=== PATIENT | female | born 1955 | race Caucasian/White ===

== ENCOUNTER 2018-05-06 18:28 | Outpatient (REF) | payer BC, SELFPAY ==
[2018-05-06 23:02] LABS: CREATININE 0.92 mg/dL (0.55-1.02); Calcium 9.3 mg/dL (8.5-10.1); Vitamin B12 517 pg/mL (193-986)
[2018-05-08 10:36] LABS: Hepatitis C Ab w Rflx HCV PCR Negative (NEGAT)
== END 2018-05-06 18:48 ==
LOC: NCHCN 18:28
PROVIDERS: PCP Internal Medicine; Visit Provider Nurse Practitioner Family
DX: R25.2 Cramp and spasm (principal); M81.0 Age-related osteoporosis without current pathological fracture; E21.0 Primary hyperparathyroidism; K30 Functional dyspepsia; R13.10 Dysphagia, unspecified; F51.04 Psychophysiologic insomnia; J45.30 Mild persistent asthma, uncomplicated; E66.9 Obesity, unspecified; Z11.59 Encounter for screening for other viral diseases
CPT/HCPCS: 86803; 82310; 82565; 82607; 83735

== ENCOUNTER 2018-05-09 01:14 | Outpatient (CLI) | payer BC, SELFPAY ==
--- NOTE | 2018-05-09 15:21 | DI.COMBO_ITS ---
SYMPTOM/DIAGNOSIS: SCREENING, Z12.31 BILATERAL SCREENING MAMMOGRAM: Mammograms were interpreted according to the usual protocol including computer analysis with CAD system, tomosynthesis and C view imaging. Comparison is made with exams from 2011 through 2017. The breasts are almost entirely fatty. The patient is again noted to be status post biopsy of the upper outer quadrant of the right breast. There is mild scarring and coarse calcifications which appear unchanged. No suspicious masses or suspicious microcalcifications are seen. IMPRESSION: Category 2-A. Negative mammogram with benign findings. Yearly screening mammography is recommended. SA ASSESSMENT OF FINDINGS: Negative with benign findings. Category 2. Patient will receive a letter notifying them of these results. BI-RAD category A. The breasts are almost entirely fatty.
== END 2018-05-09 01:34 ==
PROVIDERS: PCP Internal Medicine; Visit Provider Nurse Practitioner Family
DX: Z12.31 Encounter for screening mammogram for malignant neoplasm of breast (principal)
CPT/HCPCS: 77063; 77067

== ENCOUNTER 2018-09-20 08:20 | Outpatient (CLI) | payer BC, SELFPAY ==
--- NOTE | 2018-09-20 08:14 | DI.RAD_ITS ---
SYMPTOMS/DIAGNOSIS: RT SHOULDER INJURY RIGHT SHOULDER: Three views were performed. There is mild spurring at the AC joint and glenoid. The glenohumeral joint space is well maintained. A small calcification is seen adjacent to the humeral head on the AP view which could indicate calcific tendinitis. The humeral head appears normally positioned. IMPRESSION: Mild degenerative changes and calcific tendinitis.
== END 2018-09-20 08:40 ==
PROVIDERS: PCP Internal Medicine; Visit Provider Physician Assistant
DX: M25.511 Pain in right shoulder (principal); M19.011 Primary osteoarthritis, right shoulder; M75.31 Calcific tendinitis of right shoulder
CPT/HCPCS: 73030

== ENCOUNTER 2018-11-19 14:02 | Outpatient (REF) | payer BC, SELFPAY ==
[2018-11-19 21:13] LABS: ALT 35 U/L (12-78); AST 20 U/L (15-37); Albumin 3.4 g/dL (3.4-5.0); Alkaline Phosphatase 88 U/L (46-116); Anion Gap 10.6 mmol/L (3-11); BUN 12 mg/dL (7-18); Bilirubin, Total 0.5 mg/dL (0.2-1.0); CO2 27.4 mmol/L (21.0-32.0); CREATININE 0.73 mg/dL (0.55-1.02); Calcium 9.3 mg/dL (8.5-10.1); Chloride 106 mmol/L (98-107); Glucose 109 mg/dL (70-100); Sodium 144 mmol/L (136-145); Total Protein 6.6 g/dL (6.4-8.2)
[2018-11-19 21:16] LABS: Abs Immature Grans 0.02 k/cumm (0.0-0.09); Absolute Basophil Count 0.07 k/cumm (0.0-0.2); Absolute Eosinophil Count 0.61 k/cumm (0.0-0.7); Absolute Lymphocyte Count 1.77 k/cumm (1.2-3.4); Absolute Monocyte Count 0.52 k/cumm (0.11-0.7); Absolute Neutrophil Count 4.84 k/cumm (1.2-6.7); Basophils % 0.9; Eosinophils % 7.8; HCT 45.4 % (36.0-46.0); HGB 15.1 g/dL (12.0-15.5); Immature Grans % 0.3; Lymphocytes % 22.6; Mean Corp. HGB Concentration 33.3 g/dL (32.0-36.0); Mean Corpuscular Hemoglobin 30.8 pg (27.0-33.0); Mean Corpuscular Volume 92.7 fL (80-95); Mean Platelet Volume 10.4 fL (8.0-11.0); Monocytes % 6.6; Neutrophils % 61.8; Platelet Count 361 x1000/uL (130-400); RBC Distribution Width 13.3 % (11.7-14.6); White Blood Cell Count 7.83 k/cumm (4.4-10.8)
== END 2018-11-19 14:22 ==
LOC: NCHCN 14:02
PROVIDERS: PCP Internal Medicine; Visit Provider Nurse Practitioner Family
DX: R10.11 Right upper quadrant pain (principal); E21.0 Primary hyperparathyroidism; K30 Functional dyspepsia; J45.30 Mild persistent asthma, uncomplicated; L71.9 Rosacea, unspecified
CPT/HCPCS: 80053; 85025

== ENCOUNTER 2018-11-25 00:59 | Outpatient (CLI) | payer BC, SELFPAY ==
--- NOTE | 2018-11-25 07:00 | DI.US_ITS ---
SYMPTOM/DIAGNOSIS: RUQ ABD PAIN, R10.11 ABDOMEN ULTRASOUND: The liver shows increased echogenicity and decrease through transmission consistent with fatty infiltration. The posterior portions of the liver are not able to be visualized. Stones are noted in the gallbladder. The gallbladder wall appears thickened to 7 mm. There is a trace amount of pericholecystic fluid. There is tenderness while scanning over the gallbladder. The common bile duct is not dilated, measuring 5 mm. There is no evidence of hydronephrosis. The aorta is normal in diameter. The spleen is normal in size. No gross abnormality is seen involving the pancreas. IMPRESSION: Cholelithiasis. There is gallbladder wall thickening and tenderness which could indicate acute cholecystitis. Fatty liver is also seen.
== END 2018-11-25 01:19 ==
PROVIDERS: PCP Internal Medicine; Visit Provider Nurse Practitioner Family
DX: R10.11 Right upper quadrant pain (principal); K80.20 Calculus of gallbladder without cholecystitis without obstruction; K76.0 Fatty (change of) liver, not elsewhere classified
CPT/HCPCS: 76700

== ENCOUNTER 2019-04-04 09:05 | Outpatient (REF) | payer BC, SELFPAY ==
[2019-04-04 13:18] LABS: Abs Immature Grans 0.03 k/cumm (0.0-0.09); Absolute Basophil Count 0.06 k/cumm (0.0-0.2); Absolute Eosinophil Count 0.38 k/cumm (0.0-0.7); Absolute Lymphocyte Count 1.64 k/cumm (1.2-3.4); Absolute Monocyte Count 0.88 k/cumm (0.11-0.7); Absolute Neutrophil Count 7.76 k/cumm (1.2-6.7); Basophils % 0.6; Eosinophils % 3.5; HCT 43.2 % (36.0-46.0); HGB 13.8 g/dL (12.0-15.5); Immature Grans % 0.3; Lymphocytes % 15.3; Mean Corp. HGB Concentration 31.9 g/dL (32.0-36.0); Mean Corpuscular Hemoglobin 28.3 pg (27.0-33.0); Mean Corpuscular Volume 88.7 fL (80-95); Mean Platelet Volume 9.4 fL (8.0-11.0); Monocytes % 8.2; Neutrophils % 72.1; Platelet Count 572 x1000/uL (130-400); RBC 4.87 m/cumm (4.00-5.20); RBC Distribution Width 13.9 % (11.7-14.6); White Blood Cell Count 10.75 k/cumm (4.4-10.8)
[2019-04-04 14:27] LABS: ALT 39 U/L (14-59); AST 25 U/L (15-37); Albumin 3.5 g/dL (3.4-5.0); Alkaline Phosphatase 162 U/L (46-116); Anion Gap 12.2 mmol/L (3-11); BUN 10 mg/dL (7-18); Bilirubin, Total 0.6 mg/dL (0.2-1.0); CO2 24.8 mmol/L (21.0-32.0); CREATININE 0.83 mg/dL (0.55-1.02); Calcium 9.4 mg/dL (8.5-10.1); Chloride 103 mmol/L (98-107); Glucose 103 mg/dL (70-100); Potassium 4.2 mmol/L (3.5-5.1); Sodium 140 mmol/L (136-145); Total Protein 7.3 g/dL (6.4-8.2)
== END 2019-04-04 09:25 ==
LOC: NCHCN 09:05
PROVIDERS: PCP Internal Medicine; Visit Provider Nurse Practitioner Family
DX: R21 Rash and other nonspecific skin eruption (principal); R82.90 Unspecified abnormal findings in urine
CPT/HCPCS: 80053; 85025; 87086

== ENCOUNTER 2019-06-25 15:41 | Outpatient (REF) | payer BC, SELFPAY ==
[2019-06-25 22:01] LABS: Abs Immature Grans 0.04 k/cumm (0.0-0.09); Absolute Basophil Count 0.06 k/cumm (0.0-0.2); Absolute Eosinophil Count 0.35 k/cumm (0.0-0.7); Absolute Lymphocyte Count 2.21 k/cumm (1.2-3.4); Absolute Monocyte Count 0.87 k/cumm (0.11-0.7); Absolute Neutrophil Count 6.76 k/cumm (1.2-6.7); Basophils % 0.6; Eosinophils % 3.4; HCT 40.7 % (36.0-46.0); HGB 13.1 g/dL (12.0-15.5); Immature Grans % 0.4 %; Lymphocytes % 21.5; Mean Corp. HGB Concentration 32.2 g/dL (32.0-36.0); Mean Corpuscular Hemoglobin 28.2 pg (27.0-33.0); Mean Corpuscular Volume 87.7 fL (80-95); Mean Platelet Volume 9.9 fL (8.0-11.0); Monocytes % 8.5; Neutrophils % 65.6; RBC 4.64 m/cumm (4.00-5.20); RBC Distribution Width 16.5 % (11.7-14.6); White Blood Cell Count 10.29 k/cumm (4.4-10.8)
[2019-06-25 22:07] LABS: Platelet Count 662 x1000/uL (130-400)
[2019-06-25 22:12] LABS: ALT 136 U/L (14-59); AST 70 U/L (15-37); Albumin 3.2 g/dL (3.4-5.0); Alkaline Phosphatase 579 U/L (46-116); BUN 14 mg/dL (7-18); Bilirubin, Direct 2.81 mg/dL (0.00-0.20); Bilirubin, Total 3.5 mg/dL (0.2-1.0); CREATININE 0.86 mg/dL (0.55-1.02); Calcium 9.2 mg/dL (8.5-10.1); Chloride 102 mmol/L (98-107); Glucose 97 mg/dL (74-106); Lipase 291 U/L (73-393); Potassium 4.6 mmol/L (3.5-5.1); Sodium 139 mmol/L (136-145); Total Protein 7.2 g/dL (6.4-8.2)
== END 2019-06-25 16:01 ==
LOC: NCHCN 15:41
PROVIDERS: PCP Internal Medicine; Visit Provider Family Medicine
DX: R10.11 Right upper quadrant pain (principal)
CPT/HCPCS: 80048; 80076; 83690; 85025

== ENCOUNTER 2019-06-27 11:45 | Outpatient (REF) | payer BC, SELFPAY ==
[2019-06-27 20:59] LABS: HCT 42.3 % (36.0-46.0); HGB 13.5 g/dL (12.0-15.5); Mean Corp. HGB Concentration 31.9 g/dL (32.0-36.0); Mean Corpuscular Hemoglobin 28.5 pg (27.0-33.0); Mean Corpuscular Volume 89.2 fL (80-95); Mean Platelet Volume 9.7 fL (8.0-11.0); Platelet Count 672 x1000/uL (130-400); RBC 4.74 m/cumm (4.00-5.20); RBC Distribution Width 16.6 % (11.7-14.6); White Blood Cell Count 11.35 k/cumm (4.4-10.8)
[2019-06-27 21:27] LABS: Calculated LDL 174 mg/dL (<100); Cholesterol 228 mg/dL (<200); HDL Cholesterol 23 mg/dL (40-60); Triglyceride 155 mg/dL (<150)
[2019-06-30 09:08] LABS: HBs Antibody, Quant <3.1 mIU/mL (See Note); Hepatitis B Surface Ab Negative (See Note)
[2019-06-30 10:41] LABS: Hepatitis C Ab w Rflx HCV PCR Negative (Negative)
[2019-06-30 10:51] LABS: Hep A Total Ab w Rflx IgM Positive (Negative)
[2019-06-30 15:54] LABS: Hep A Antibody IgM Negative (Negative)
[2019-06-30 16:47] LABS: ALT 106 U/L (14-59); AST 68 U/L (15-37); Alkaline Phosphatase 540 U/L (46-116); Total Protein 7.5 g/dL (6.4-8.2)
== END 2019-06-27 12:05 ==
LOC: NCHCN 11:45
PROVIDERS: PCP Internal Medicine; Visit Provider Internal Medicine
DX: R10.11 Right upper quadrant pain (principal); Z11.59 Encounter for screening for other viral diseases
CPT/HCPCS: 80061; 80076; 85027; 86706; 86709; 86803

== ENCOUNTER 2019-07-10 02:20 | Outpatient (CLI) | payer BC, SELFPAY ==
--- NOTE | 2019-07-10 08:00 | DI.US_ITS ---
EXAM: US ABDOMEN CLINICAL HISTORY: ELEVATED LFTS, R79.89 TECHNIQUE: Ultrasound abdomen performed using standard protocol. COMPARISON: US ABDOMEN from 11/25/2018 FINDINGS: LIVER: Increased echogenicity consistent with fatty infiltration. Normal in size. Hepatopetal flow through the portal vein. GALLBLADDER: Status post cholecystectomy. KIDNEYS: Kidneys are symmetric in size. No evidence of renal calculi. No evidence of hydronephrosis. No renal mass or cyst identified. BILIARY SYSTEM: Common bile duct measures 6 mm. There does appear to be mild intrahepatic biliary du ctal dilation. There also are a few echogenic foci seen within extrahepatic bile duct suspicious for choledocholithiasis. PANCREAS: Normal where visualized. SPLEEN: Not enlarged. ABDOMINAL AORTA AND IVC: Visualized portions normal caliber. ASCITES: None seen. IMPRESSION: 1. Status post cholecystectomy. Intrahepatic biliary ductal dilatation. Question of choledocholithi asis. CT scan or MRCP of the abdomen is recommended for further evaluation. 2. Hepatic steatosis.
== END 2019-07-10 02:40 ==
PROVIDERS: PCP Internal Medicine; Visit Provider Family Medicine
DX: K76.0 Fatty (change of) liver, not elsewhere classified (principal); K83.8 Other specified diseases of biliary tract; Z90.49 Acquired absence of other specified parts of digestive tract; R79.89 Other specified abnormal findings of blood chemistry
CPT/HCPCS: 76700

== ENCOUNTER 2019-07-10 10:13 | Outpatient (REF) | payer BC, SELFPAY ==
[2019-07-10 12:36] LABS: ALT 147 U/L (14-59); AST 105 U/L (15-37); Albumin 3.2 g/dL (3.4-5.0); Alkaline Phosphatase 455 U/L (46-116); Bilirubin, Direct 0.96 mg/dL (0.00-0.20); Bilirubin, Total 1.4 mg/dL (0.2-1.0); Total Protein 6.9 g/dL (6.4-8.2)
== END 2019-07-10 10:33 ==
LOC: NCHCN 10:13
PROVIDERS: PCP Internal Medicine; Visit Provider Family Medicine
DX: R79.89 Other specified abnormal findings of blood chemistry (principal)
CPT/HCPCS: 80076

== ENCOUNTER 2019-07-18 13:19 | Outpatient (REF) | payer BC, SELFPAY ==
[2019-07-18 20:46] LABS: ESR 47 mm/hr (0-30)
[2019-07-18 20:49] LABS: ALT 186 U/L (14-59); AST 137 U/L (15-37); Albumin 3.3 g/dL (3.4-5.0); Alkaline Phosphatase 480 U/L (46-116); Bilirubin, Direct 1.33 mg/dL (0.00-0.20); Bilirubin, Total 1.6 mg/dL (0.2-1.0)
[2019-07-18 20:50] LABS: Hemoglobin A1C 5.5 % (3.8-5.6)
== END 2019-07-18 13:39 ==
LOC: NCHCN 13:19
PROVIDERS: PCP Internal Medicine; Visit Provider Family Medicine
DX: R79.89 Other specified abnormal findings of blood chemistry (principal)
CPT/HCPCS: 80076; 85652; 83036

== ENCOUNTER 2019-08-21 01:05 | Outpatient (CLI) | payer BC, SELFPAY ==
--- NOTE | 2019-08-21 10:30 | DI.MAMMO_ITS ---
EXAM: MG MAMMO SCREENING CLINICAL HISTORY: SCREENING, Z12.31 TECHNIQUE: Bilateral full field digital CC and MLO mammographic images were obtained with 3D tomosyn thesis and utilizing computer aided detection (CAD). COMPARISON: Available for comparison. FINDINGS: Masses/Architectural Distortion: None seen. Postsurgical changes are again seen in the left breast. Microcalcifications: No suspicious pleomorphic-type are seen. Skin Thickening/Nipple Retraction: None. IMPRESSION: 1. No significant interval change with no specific features of malignancy noted. 2. Unless there is more urgent need, screening mammography is recommended, as per [place] guidelines. BI-RADS Cat 2 - Benign Findings Breast Density - Category B - Scattered areas of fibroglandular density A negative radiographic report should not delay biopsy if a dominant or clinically suspicious mass is present. Up to ten percent of cancers are not identified on mammography. A negative report may reinforce clinical impression. Adenosis and dense breasts may obscure an underlying neoplasm. False positive reports average 6 to 10%. Patient will receive a letter notifying them of these results.
== END 2019-08-21 01:25 ==
PROVIDERS: PCP Internal Medicine; Visit Provider Family Medicine
DX: Z12.31 Encounter for screening mammogram for malignant neoplasm of breast (principal)
CPT/HCPCS: 77063; 77067

== ENCOUNTER 2019-09-18 08:19 | Outpatient (REF) | payer BC, SELFPAY ==
[2019-09-18 20:09] LABS: Absolute Basophil Count 0.07 k/cumm (0.0-0.2); Absolute Lymphocyte Count 1.53 k/cumm (1.2-3.4); Absolute Monocyte Count 0.45 k/cumm (0.11-0.7); Absolute Neutrophil Count 4.84 k/cumm (1.2-6.7); Eosinophils % 4.2; HCT 45.4 % (36.0-46.0); HGB 14.9 g/dL (12.0-15.5); Lymphocytes % 21.3; Mean Corp. HGB Concentration 32.8 g/dL (32.0-36.0); Mean Corpuscular Hemoglobin 31.2 pg (27.0-33.0); Mean Platelet Volume 10.4 fL (8.0-11.0); Monocytes % 6.3; Neutrophils % 67.2; Platelet Count 402 x1000/uL (130-400); RBC 4.78 m/cumm (4.00-5.20); RBC Distribution Width 13.8 % (11.7-14.6); White Blood Cell Count 7.19 k/cumm (4.4-10.8)
[2019-09-18 20:43] LABS: ALT 31 U/L (14-59); AST 31 U/L (15-37); Albumin 3.6 g/dL (3.4-5.0); Alkaline Phosphatase 238 U/L (46-116); Anion Gap 7.7 mmol/L (3-11); BUN 11 mg/dL (7-18); Bilirubin, Total 0.9 mg/dL (0.2-1.0); CO2 28.3 mmol/L (21.0-32.0); CREATININE 0.82 mg/dL (0.55-1.02); Calcium 9.8 mg/dL (8.5-10.1); Chloride 106 mmol/L (98-107); Glucose 110 mg/dL (74-106); Potassium 4.2 mmol/L (3.5-5.1); Sodium 142 mmol/L (136-145); Total Protein 7.1 g/dL (6.4-8.2)
== END 2019-09-18 08:39 ==
LOC: NCHCN 08:19
PROVIDERS: PCP Internal Medicine; Visit Provider Nurse Practitioner Family
DX: K83.09 Other cholangitis (principal)
CPT/HCPCS: 80053; 85025

== ENCOUNTER 2019-10-22 19:13 | Outpatient (REF) | payer BC, SELFPAY ==
[2019-10-22 21:34] LABS: Abs Immature Grans 0.01 k/cumm (0.0-0.09); Absolute Basophil Count 0.04 k/cumm (0.0-0.2); Absolute Monocyte Count 0.72 k/cumm (0.11-0.7); Absolute Neutrophil Count 8.07 k/cumm (1.2-6.7); Basophils % 0.3; Eosinophils % 7.1; HCT 45.5 % (36.0-46.0); HGB 15.1 g/dL (12.0-15.5); Immature Grans % 0.1 %; Lymphocytes % 17.8; Mean Corp. HGB Concentration 33.2 g/dL (32.0-36.0); Mean Corpuscular Hemoglobin 30.5 pg (27.0-33.0); Mean Corpuscular Volume 91.9 fL (80-95); Mean Platelet Volume 10.1 fL (8.0-11.0); Monocytes % 6.1; Neutrophils % 68.6; Platelet Count 404 x1000/uL (130-400); RBC 4.95 m/cumm (4.00-5.20); RBC Distribution Width 12.9 % (11.7-14.6); White Blood Cell Count 11.77 k/cumm (4.4-10.8)
[2019-10-22 21:46] LABS: Absolute Eosinophil Count 0.84 k/cumm (0.0-0.7)
[2019-10-22 21:51] LABS: ALT 63 U/L (14-59); AST 37 U/L (15-37); Albumin 3.7 g/dL (3.4-5.0); Alkaline Phosphatase 302 U/L (46-116); Bilirubin, Total 0.6 mg/dL (0.2-1.0); Total Protein 7.5 g/dL (6.4-8.2)
[2019-10-22 22:21] LABS: Bilirubin, Direct 0.28 mg/dL (0.00-0.20)
== END 2019-10-22 19:33 ==
LOC: NCHCN 19:13
PROVIDERS: PCP Internal Medicine; Visit Provider Nurse Practitioner Family
DX: R79.89 Other specified abnormal findings of blood chemistry (principal); R10.11 Right upper quadrant pain; I10 Essential (primary) hypertension; K76.0 Fatty (change of) liver, not elsewhere classified
CPT/HCPCS: 80076; 85025

== ENCOUNTER 2019-11-20 11:01 | Outpatient (REF) | payer BC, SELFPAY ==
[2019-11-20 20:32] LABS: Abs Immature Grans 0.01 k/cumm (0.0-0.09); Absolute Basophil Count 0.07 k/cumm (0.0-0.2); Absolute Eosinophil Count 0.87 k/cumm (0.0-0.7); Absolute Lymphocyte Count 1.63 k/cumm (1.2-3.4); Absolute Monocyte Count 0.49 k/cumm (0.11-0.7); Absolute Neutrophil Count 5.22 k/cumm (1.2-6.7); Basophils % 0.8; Eosinophils % 10.5; HCT 42.8 % (36.0-46.0); HGB 14.2 g/dL (12.0-15.5); Immature Grans % 0.1 %; Lymphocytes % 19.7; Mean Corp. HGB Concentration 33.2 g/dL (32.0-36.0); Mean Corpuscular Hemoglobin 30.3 pg (27.0-33.0); Mean Corpuscular Volume 91.3 fL (80-95); Mean Platelet Volume 9.8 fL (8.0-11.0); Monocytes % 5.9; Platelet Count 437 x1000/uL (130-400); RBC 4.69 m/cumm (4.00-5.20); RBC Distribution Width 13.1 % (11.7-14.6); White Blood Cell Count 8.29 k/cumm (4.4-10.8)
[2019-11-20 21:15] LABS: Vitamin D 25 Total 38.3 ng/ml (30-100)
[2019-11-20 21:20] LABS: ALT 31 U/L (14-59); AST 24 U/L (15-37); Albumin 3.5 g/dL (3.4-5.0); Alkaline Phosphatase 236 U/L (46-116); Anion Gap 11.8 mmol/L (3-11); BUN 12 mg/dL (7-18); Bilirubin, Total 0.5 mg/dL (0.2-1.0); CO2 23.2 mmol/L (21.0-32.0); CREATININE 0.92 mg/dL (0.55-1.02); Calcium 9.1 mg/dL (8.5-10.1); Chloride 105 mmol/L (98-107); Glucose 116 mg/dL (74-106); Potassium 4.3 mmol/L (3.5-5.1); Sodium 140 mmol/L (136-145); Vitamin B12 682 pg/mL (193-986)
[2019-11-24 10:34] LABS: HIV-1/2 Ag & Ab Screen Negative (Negative)
== END 2019-11-20 11:21 ==
LOC: NCHCN 11:01
PROVIDERS: PCP Internal Medicine; Visit Provider Nurse Practitioner Family
DX: E21.0 Primary hyperparathyroidism (principal); R79.89 Other specified abnormal findings of blood chemistry; D47.3 Essential (hemorrhagic) thrombocythemia; K76.0 Fatty (change of) liver, not elsewhere classified; M81.0 Age-related osteoporosis without current pathological fracture; J45.30 Mild persistent asthma, uncomplicated; K83.09 Other cholangitis; Z88.3 Allergy status to other anti-infective agents
CPT/HCPCS: 80053; 82306; 87389; 82607; 83735; 85025

== ENCOUNTER 2019-12-24 01:41 | Outpatient (CLI) | payer BC, SELFPAY ==
--- NOTE | 2019-12-24 | DI.DEXA_ITS ---
EXAM: XR DEXA BONE DENSITY W/WO GORGE CLINICAL HISTORY: OSTEOPOROSIS, M81.0 TECHNIQUE: Hologic Horizon C densitometer. COMPARISON: CR CHEST 2 VIEWS PA,LAT from 05/04/2014 DX DEXA BONE DENSITY WITH GORGE from 04/03/2017 FINDINGS: The IV a image shows no evidence of compression fractures. There is some accentuation the thoracic k yphosis. The bone mineral density measurements of the lumbar spine correspond to a total T-score of -2.3, in t he osteopenic range. This represents a 3.6 percent decrease when compared with 2017. The bone mineral density measurements of the left hip correspond to a total T-score of -1.8 and a fem oral neck T-score of -2.4. this represents a 7.1 percent decrease in total bone mineral density when compared with 2017. The left forearm bone mineral density corresponds to a T-score of the distal 3rd of -3.1, in the oste oporotic range. This is unchanged from the previous exam. IMPRESSION: Osteoporosis of the left wrist. Osteopenia of the left hip and lumbar spine with decreases in density compared with 2017.
== END 2019-12-24 02:01 ==
PROVIDERS: PCP Internal Medicine; Visit Provider Nurse Practitioner Family
DX: M81.0 Age-related osteoporosis without current pathological fracture (principal); M85.89 Other specified disorders of bone density and structure, multiple sites
CPT/HCPCS: 77080

== ENCOUNTER 2020-02-06 06:21 | Day surgery (SDC) | payer BC, SELFPAY ==
[2020-02-06 06:29] VITALS: BP 129/82; PULSE 69; RESP 16; TEMP 36.6; O2SAT 95
[2020-02-06] MEDS: Lactated Ringers 1,000 ML 80 ML IV (07:01)
--- NOTE | 2020-02-06 07:07 | W.PM.DSUDISC ---
Discharge Plan Disposition Patient Disposition: HOME Condition: Good Discharge Details Reason For Visit: Colonoscopy Attending Provider: Nhi Godoy Primary Care Provider: Holley Faith Home Meds and New Rx's Prescriptions: Continued cholecalciferol (vitamin D3) 10 mcg (400 unit) capsule 10 mcg PO DAILY RF: 0 magnesium 30 mg tablet 30 mg PO DAILY RF: 0 calcium carbonate [Calcium 500] 500 mg calcium (1,250 mg) tablet 500 mg PO BID RF: 0 liver plex 1 cap PO DAILY RF: 0 omeprazole 20 mg capsule,delayed release(DR/EC) 20 mg PO DAILY RF: 0 valacyclovir [Valtrex] 1 gram tablet 1,000 mg PO DAILY RF: 0 Zyrtec 10 mg capsule 10 mg PO DAILY RF: 0 montelukast [Singulair] 10 mg tablet 10 mg PO DAILY RF: 0 zolpidem [Ambien] 5 mg tablet 5 mg PO QHS PRNRF: 0 fluticasone propion-salmeterol [Advair Diskus] 1 EACH blister with device 1 ea Inhalation BID RF: 0 albuterol sulfate [ProAir HFA] 8.5 GM HFA aerosol inhaler 8.5 gm Inhalation DIRECTED PRNRF: 0 epinephrine 0.3 MG/SYR auto-injector 0.3 mg IJ PRN PRN (Reason: Anaphylaxis) Qty: 1 RF: 0 Discontinued polyethylene glycol 3350 17 gram/dose powder 238 g PO ONCE Qty: 238 RF: 0 bisacodyl [Dulcolax (bisacodyl)] 5 mg tablet,delayed release (DR/EC) 5 mg PO ONCE Qty: 4 RF: 0 Discharge Instructions Additional Instructions: Findings: A possible polyp was found in the right colon. This may also be an inflamed diverticulum. My office will contact you with biopsy results. Follow up: Will be based on biopsy results. Please call if you develop: fevers >101.5 Nausea or Vomiting Abdominal pain that is not transient DAY SURGERY UNIT POST COLONOSCOPY INSTRUCTIONS 1. Because there will be medication in your system for the next 24 hours, you may feel a little sleepy. Your coordination will be affected. Therefore: a. Do not drive or operate dangerous equipment for 24 hours. b. Do not drink alcohol beverages for 24 hours (not even beer). c. Plan to go home and rest for the day. 2. Generally there are no restrictions on your activity after a day or so has gone by, but you may feel a bit fatigued for a few days. 3 After you arrive home you may have a light meal and return to a normal diet as you can tolerate it without feeling sick to your stomach. 4. After surgery, you may feel pain or discomfort. This should be only transient, but if it persists please contact your doctor. 5. If there are any questions regarding the findings of your procedure, please feel free to contact your doctor. 6. If you are unable to contact your doctor with a problem, contact the hospital at [phone]. 7. Continue all your regular medications unless directed otherwise. I understand the above instructions and have no questions. Signature of Patient or Responsible Adult Escort Date/Time Name of Responsible Adult Escort Signature of Nurse Date/Time Activity:: Activity as Tolerated Diet:: As Tolerated Discharge Orders Discharge Orders: Discharge Order (Routine); Ordered 02/06/20 Ordered By: Nhi Godoy DS: Diagnosis Discharge Diagnosis (1) Diverticulosis: Status: Acute
--- NOTE | 2020-02-06 07:09 | W.COLOREPORT ---
Date of service: 02/06/20 Time of Service: 07:57 Colonoscopy Report Date of procedure: 02/06/20 Pre-op diagnosis general: Screening Post-op diagnosis procedure note: other (Diverticulosis, possible polyp at hepatic flexure) Procedure: Colonoscopy with biopsy Surgeon: Nhi Godoy Anesthesia proc note operative: MAC Indications: This 64 year old woman presents for routine screening colonoscopy. Her last one in 2009 showed a hyperplastic polyp. She has no symptoms or FH colon cancer. Procedure Description: The patient was placed in the left Givens position. Propofol was titrated to sedation. Digital rectal examination revealed no abnormalities. The scope was advanced to the cecum without difficulty. The ileocecal valve and appendiceal orifice were clearly identified. The prep was good. The scope was slowly withdrawn over the course of greater than 6 minutes. At the hepatic flexure a possible polyp vs an inflamed/inverted diverticulum was biopsied. There appeared to be a small amount of purulent drainage. No other abnormalities were seen in the ascending, transverse, descending, sigmoid colon or rectum including on retroflexed view with the exception of rare diverticulosis in the sigmoid region. The patient tolerated the procedure well and was stable to recovery. Follow up colonoscopy recommendations will be based on biopsy results.
--- NOTE | 2020-02-06 07:38 | BOWEL_PTH ---
PATIENT: Alexa Bess LOC: [facility] U#:[id number] AGE/SX: 64/F ROOM: RE02/06/[address]: Nhi Godoy MD : 1955 BED: DIS: 02/06/2020 SPEC #: [id number] RECD: 02/06/20 12:44 STATUS: ALEXANDRA REQ #: [id number] CALIN: 02/06/20 07:[address]: Nhi Godoy DEPT: Surgical Specimen RECD BY: Michelle Burr ENTERED: 02/06/20 12:46 SP TYPE: Bowel OTHR DR: Holley Faith Jeniane L Tissues: 1 - BIOPSY BOWEL Procedures: GROSS AND MICRO LEVEL 4 Comments: [id number]
[2020-02-06 08:23] VITALS: BP 135/72; PULSE 63; RESP 16; TEMP 36.3; O2SAT 97
== END 2020-02-06 08:40 | disposition home or self-care (01) ==
PROVIDERS: PCP Nurse Practitioner Family; Visit Provider Surgery
PROC: 0DJD8ZZ Inspection of Lower Intestinal Tract, Via Natural or Artificial Opening Endoscopic (ICD-10-PCS; CPT 45378; principal; 2020-02-06 07:30)
DX: Z12.11 Encounter for screening for malignant neoplasm of colon (principal); K63.5 Polyp of colon; K21.9 Gastro-esophageal reflux disease without esophagitis; J45.909 Unspecified asthma, uncomplicated
CPT/HCPCS: 45380; 88305

== ENCOUNTER 2020-04-02 13:27 | Outpatient (REF) | payer BC, SELFPAY ==
[2020-04-07 16:26] LABS: Patient Race White; SARS-CoV-2 RNA Undetected (Undetected); SARS-CoV-2 Specimen Source Nasal
== END 2020-04-02 13:47 ==
LOC: NCHCN 13:27
PROVIDERS: PCP Nurse Practitioner Family; Visit Provider Nurse Practitioner Family
DX: Z20.828 Contact with and (suspected) exposure to other viral communicable diseases (principal)
CPT/HCPCS: U0003

== ENCOUNTER 2020-05-14 18:09 | Outpatient (REF) | payer BC, SELFPAY ==
[2020-05-14 21:24] LABS: Abs Immature Grans 0.02 10^3/uL (0.0-0.06); Absolute Basophil Count 0.08 10^3/uL (0.0-0.2); Absolute Eosinophil Count 1.34 10^3/uL (0.0-0.7); Absolute Monocyte Count 0.63 10^3/uL (0.1-0.8); Absolute Neutrophil Count 4.25 10^3/uL (1.2-6.7); Eosinophils % 15.9; HGB 15.1 g/dL (11.2-15.7); Immature Grans % 0.2; Lymphocytes % 24.9; MCH 29.3 pg (27.0-33.0); MCHC 32.8 % (32.0-36.0); MCV 89.3 fL (80-95); MPV 10.1 fL (8.0-11.0); Monocytes % 7.5; Neutrophils % 50.5; Nucleated RBC 0 %; Platelet Count 328 10^3/uL (130-400); RBC 5.15 10^6/uL (3.93-5.22); RDW 14.3 % (11.7-14.6); RDW-SD 46.8 fL; WBC 8.42 10^3/uL (4.4-10.8)
[2020-05-14 21:25] LABS: ALT 104 U/L (14-59); AST 58 U/L (15-37); Albumin 3.8 g/dL (3.4-5.0); Alkaline Phosphatase 229 U/L (46-116); Anion Gap 10.8 mmol/L (3-11); BUN 12 mg/dL (7-18); Bilirubin, Total 0.6 mg/dL (0.2-1.0); CO2 25.2 mmol/L (21.0-32.0); CREATININE 0.94 mg/dL (0.55-1.02); Calcium 9.3 mg/dL (8.5-10.1); Chloride 104 mmol/L (98-107); Glucose 119 mg/dL (74-106); Potassium 4.1 mmol/L (3.5-5.1); Sodium 140 mmol/L (136-145); Total Protein 7.3 g/dL (6.4-8.2)
== END 2020-05-14 18:29 ==
LOC: NCHCN 18:09
PROVIDERS: PCP Nurse Practitioner Family; Visit Provider Nurse Practitioner Family
DX: D47.3 Essential (hemorrhagic) thrombocythemia (principal); R79.89 Other specified abnormal findings of blood chemistry; K83.09 Other cholangitis; K76.0 Fatty (change of) liver, not elsewhere classified; K30 Functional dyspepsia; F51.04 Psychophysiologic insomnia; J45.30 Mild persistent asthma, uncomplicated
CPT/HCPCS: 80053; 85025

== ENCOUNTER 2020-06-14 16:11 | Outpatient (REF) | payer BC, SELFPAY ==
[2020-06-14 21:52] LABS: ALT 80 U/L (14-59); AST 30 U/L (15-37); Albumin 3.9 g/dL (3.4-5.0); Alkaline Phosphatase 222 U/L (46-116); Bilirubin, Direct 0.15 mg/dL (0.00-0.20); Bilirubin, Total 0.5 mg/dL (0.2-1.0); Total Protein 7.7 g/dL (6.4-8.2)
[2020-06-16 09:11] LABS: HBs Antibody, Quant <3.1 mIU/mL (See Note); Hepatitis B Surface Ab Negative (See Note)
[2020-06-16 09:24] LABS: Hepatitis B Surface Ag Negative (Negative)
[2020-06-16 10:14] LABS: Hepatitis C Ab w Rflx HCV PCR Negative (Negative)
[2020-06-16 10:24] LABS: Hep B Core Antibody Negative (Negative)
[2020-06-16 12:45] LABS: Hep A Total Ab w Rflx IgM Positive (Negative)
[2020-06-16 14:14] LABS: Hep A Antibody IgM Negative (Negative)
== END 2020-06-14 16:31 ==
LOC: NCHCN 16:11
PROVIDERS: PCP Nurse Practitioner Family; Visit Provider Nurse Practitioner Family
DX: R94.5 Abnormal results of liver function studies (principal)
CPT/HCPCS: 80076; 86704; 86706; 86709; 86803; 87340

== ENCOUNTER 2020-08-03 16:52 | Emergency (ER) | payer BC, SELFPAY ==
[2020-08-03 17:01] VITALS: BP 157/90; PULSE 77; RESP 16; TEMP 36.7; O2SAT 97
--- NOTE | 2020-08-03 17:15 | DI.RAD_ITS ---
EXAM: XR SHOULDER LT COMPLETE 2+V and XR humerus LT CLINICAL HISTORY: pain post fall. TECHNIQUE: 2D digital imaging was performed. COMPARISON: No previous for comparison. FINDINGS: BONES: There is a comminuted fracture involving the proximal humerus. The fracture involves the grea ter tuberosity and the surgical neck. There is mild impaction of the fracture. No bony destructive lesion is seen. No other acute fracture or dislocation is appreciated. JOINTS: The humeral head is inferiorly displaced. This may be secondary to a hemarthrosis. SOFT TISSUE: Normal. IMPRESSION: Comminuted fracture involving the surgical neck and humeral head with mild impaction. Inferior displ acement of the humeral head is noted which may represent a pseudosubluxation secondary to hemarthrosi s. DATA REPOSITORY: RADIATION DOSE DELIVERED:
--- NOTE | 2020-08-03 17:42 | ED.GENADUL_ITS ---
Discharge Plan Disposition Patient Disposition: HOME Condition: Good Discharge Details Clinical Impression: Fracture of left shoulder Primary Care Provider: Holley Faith ED Provider: Michelle Mccarty Home Meds and New Rx's Prescriptions: New oxycodone 5 mg capsule 5 mg PO Q6H PRNQty: 7 RF: 0 No Action cholecalciferol (vitamin D3) 10 mcg (400 unit) capsule 10 mcg PO DAILY RF: 0 magnesium 30 mg tablet 30 mg PO DAILY RF: 0 calcium carbonate [Calcium 500] 500 mg calcium (1,250 mg) tablet 500 mg PO BID RF: 0 liver plex 1 cap PO DAILY RF: 0 omeprazole 20 mg capsule,delayed release(DR/EC) 20 mg PO DAILY RF: 0 valacyclovir [Valtrex] 1 gram tablet 1,000 mg PO DAILY RF: 0 montelukast [Singulair] 10 mg tablet 10 mg PO DAILY RF: 0 zolpidem [Ambien] 5 mg tablet 5 mg PO QHS PRNRF: 0 fluticasone propion-salmeterol [Advair Diskus] 1 EACH blister with device 1 ea Inhalation BID RF: 0 albuterol sulfate [ProAir HFA] 8.5 GM HFA aerosol inhaler 8.5 gm Inhalation DIRECTED PRNRF: 0 epinephrine 0.3 MG/SYR auto-injector 0.3 mg IJ PRN PRN (Reason: Anaphylaxis) Qty: 1 RF: 0 loratadine [Claritin] 10 mg Tablet 10 mg PO DAILY RF: 0 Discharge Instructions Instructions: Shoulder Pain (ED) Additional Instructions: Follow-up with orthopedics Take ibuprofen as needed for pain and oxycodone for pain uncontrolled with ibuprofen only, this medication is addictive and can make you constipated Also do not drive for 8 hours after taking this medication You may apply ice for comfort Stand Alone Forms: Work Release Medical Decision Making Patient with a humeral neck fracture with subluxation from likely hematoma per radiology interpretation of my review No other visible evidence of trauma Placed in a shoulder immobilizer and referred to orthopedics Given the amount of opiate analgesia, rest discussed Return precautions discussed and patient expressed understanding Discharged home in stable condition, ambulatory with steady gait, work note applied Differential Diagnosis Differential Diagnosis: Fracture, strain, contusion, abrasion Medical Records Medical records reviewed: Yes I reviewed the patient's medical records. HPI This 65-year-old female with history of diverticulosis and right rotator cuff tendinitis presents with report of fall on 31 July landing on her left shoulder. She states she has had persistent pain since that time. She states the pain is exacerbated by taking and externally rotating her shoulder. Denies any strength or sensation changes. Denies headache or cervical spine pain. Denies history of anticoagulation. Denies hip pain, abdominal pain, chest pain, shortness of breath. The event was reportedly mechanical in nature. She tripped over her 's whole bag. General Date/Time Provider Initiated Documentation: 08/03/20 17:15 . Related Data Home Medications Medication Instructions Recorded Confirmed albuterol sulfate [ProAir HFA] 8.5 gm INHALATION DIRECTED PRN 09/28/16 08/03/20 epinephrine 0.3 mg IJ PRN PRN #1 kit 09/28/16 08/03/20 fluticasone propion-salmeterol 1 ea INHALATION BID 09/28/16 08/03/20 [Advair Diskus] montelukast 10 mg tablet 10 mg PO DAILY 01/07/20 08/03/20 omeprazole 20 mg capsule,delayed 20 mg PO DAILY 01/07/20 08/03/20 release valacyclovir 1 gram tablet 1,000 mg PO DAILY 01/07/20 08/03/20 zolpidem 5 mg tablet 5 mg PO QHS PRN 01/07/20 08/03/20 calcium carbonate 500 mg calcium 500 mg PO BID 01/08/20 08/03/20 (1,250 mg) tablet cholecalciferol (vitamin D3) 10 10 mcg PO DAILY 01/08/20 08/03/20 mcg (400 unit) capsule liver plex 1 cap PO DAILY 01/08/20 02/06/20 magnesium 30 mg tablet 30 mg PO DAILY 01/08/20 08/03/20 loratadine [Claritin] 10 mg PO DAILY 08/03/20 08/03/20 oxycodone 5 mg PO Q6H PRN #7 cap 08/03/20 Previous Rx's Medication Instructions Recorded epinephrine 0.3 mg IJ PRN PRN #1 kit 09/28/16 oxycodone 5 mg PO Q6H PRN #7 cap 08/03/20 Allergies Allergy/AdvReac Type Severity Reaction Status Date / Time No Known Allergies Allergy Unverified 08/03/20 17:04 General Stated Complaint: Orthopedic FITZ: 4 Review of Systems Narrative: Review of systems obtained x7 and negative aside from where indicated in HPI [facility] Medical History (Updated 08/03/20 @ 18:40 by TONEY Abbott) Abdominal pain Asthma Chronic back pain Chronic insomnia Dyspepsia Fatty liver Genital herpes Hyperparathyroidism Resolved after parathyroidectomy Kidney stone on left side Leg cramps Lipoma of back Nasal polyp Obese Osteoporosis Rosacea Thrombocytosis Pt. denies this Surgical History (Updated 02/11/20 @ 08:46 by Geraldine Orosco) Colon polyp Inflammatory polyp 01/2020, repeat 10 years Hx of cholecystectomy Hx of parathyroidectomy 2016 Social History Smoking/Tobacco Use Status: Never Smoking risk assessment performed?: Yes Alcohol Intake: current Alcohol Intake frequency: a few times a month Alcohol type: beer and wine Substance use type: does not use Do you feel safe at home: Yes Do you feel safe in your relationship?: Yes Exam Const General: cooperative and healthy appearing HENMT Head: normal to inspection Eyes Pupils: PERRL Neck Other: No midline tenderness Chest Other: No chest wall tenderness Neuro Other: GCS 15, alert and oriented x4, ambulatory with steady gait Extrem Other: Left shoulder with tenderness, abrasion to mid left upper arm, no obvious deformity, no tenderness to elbow on left side or wrist, no left hip tenderness, no lumbar spine tenderness, thoracic spine tenderness Course Vital Signs Vital signs: Vital Signs Temperature 36.7 C 08/03/20 17:01 Pulse 77 08/03/20 17:01 Respiratory Rate 16 08/03/20 17:01 Blood Pressure 157/90 H 08/03/20 17:01 Pulse Oximetry 97 08/03/20 17:01 Temperature 36.7 C 08/03/20 17:01 Temperature Source Skin 08/03/20 17:01 Pulse 77 08/03/20 17:01 Respiratory Rate 16 08/03/20 17:01 Blood Pressure 157/90 H 08/03/20 17:01 Blood Pressure Position Sitting 08/03/20 17:01 Pulse Oximetry 97 08/03/20 17:01 Oxygen Delivery Method Room Air 08/03/20 17:01 Oxygen Flow Rate 0 08/03/20 17:01 Pain Level 3 08/03/20 17:01
--- NOTE | 2020-08-03 18:30 | DI.VRAD_ITS ---
PROCEDURE INFORMATION: Exam: XR Left Humerus Exam date and time: 08/03/2020 5:26 PM Age: 65 years old Clinical indication: Other: Pain post fall; Additional info: Pain post fall, 3 days ago proximal humerus on the shoulder , TECHNIQUE: Imaging protocol: XR Left humerus. Views: 2 or more views. COMPARISON: No relevant prior studies available. FINDINGS: Bones/joints: There is a comminuted fracture of the proximal humeral neck and head with an egg shell fragment seen laterally. There may be very mild impaction. Soft tissues: Normal. IMPRESSION: Humeral head and neck fracture. Dictated and Authenticated by: Natalie Talavera MD. Ordering:MANDI Martinez MD
--- NOTE | 2020-08-03 18:32 | DI.VRAD_ITS ---
PROCEDURE INFORMATION: Exam: XR Left Shoulder Exam date and time: 08/03/2020 5:26 PM Age: 65 years old Clinical indication: Other: Pain post fall; Additional info: Pain post fall, 3days ago PT unable to abduct arm or fully external rotation for true ap due to pain TECHNIQUE: Imaging protocol: XR Left shoulder. Views: 2 or more views. COMPARISON: No relevant prior studies available. FINDINGS: Bones/joints: There is a comminuted fracture of the humeral head and neck. There appears to be mild impaction. There is a curvilinear eggshell fragment seen laterally. The humeral head is inferiorly displaced, probable pseudosubluxation secondary to underlying hemarthrosis. Soft tissues: Normal. IMPRESSION: Humeral head and proximal neck fracture with mild comminution and probable mild impaction. Suspect pseudosubluxation secondary to associated hemarthrosis. Dictated and Authenticated by: Natalie Talavera MD. Ordering:MANDI Martinez MD
== END 2020-08-03 19:04 | disposition home or self-care (01) ==
PROVIDERS: Emergency Provider Physician Assistant; PCP Nurse Practitioner Family
DX: S42.222A 2-part displaced fracture of surgical neck of left humerus, initial encounter for closed fracture (principal); W18.09XA Striking against other object with subsequent fall, initial encounter
CPT/HCPCS: 23600; 73030; 73060

== ENCOUNTER 2020-08-05 01:19 | Outpatient (CLI) | payer BC, SELFPAY ==
--- NOTE | 2020-08-05 07:00 | DI.CT_ITS ---
EXAM: CT UPPER EXTREMITY LT WO and 3D recon on CT workstation CLINICAL HISTORY: Complex fx; surgical planning,S42.A. TECHNIQUE: Imaging Protocol: Axial computed tomography images with coronal and sagittal reformatted images were created and reviewed. COMPARISON: CR,XR XR HUMERUS LT from 08/03/2020 FINDINGS: Bones: There is a comminuted fracture involving the proximal humerus again noted. The fracture invo lves the greater tuberosity and the surgical neck. There is mild impaction of the fracture. Mild di splacement of the greater tuberosity fracture fragments is noted. No other fracture or dislocation i s seen. No cellulitic or osteomyelitic changes are identified. No lytic or sclerotic lesions are id entified. There is a joint effusion present. 3D reconstructions of the left shoulder were also obtai jordan. Soft Tissues: Mild edema is seen in the surrounding soft tissues. IMPRESSION: Comminuted proximal humeral fracture as described. RADIATION DOSE DELIVERED: 893.33mGy.cm Total DLP 893.33mGy.cm Total DLP DATA REPOSITORY: All CT scans at this facility are submitted to the National Radiology Data Registry (NRDR) Dose Index Registry (DIR) with the [employer] ([employer]). RADIATION OPTIMIZATION: All CT scans at this facility use at least one of these dose optimization te chniques: automated exposure control; mA and/or kV adjustment per patient size (includes targeted exa ms where dose is matched to clinical indication); or iterative reconstruction.
== END 2020-08-05 01:39 ==
PROVIDERS: PCP Nurse Practitioner Family; Visit Provider Student in an Organized Health Care Education/Training Program
DX: S42.292A Other displaced fracture of upper end of left humerus, initial encounter for closed fracture (principal)
CPT/HCPCS: 76376; 73200

== ENCOUNTER 2020-08-10 14:12 | Outpatient (CLI) | payer BC, SELFPAY ==
--- NOTE | 2020-08-10 13:45 | DI.RAD_ITS ---
EXAM: XR SHOULDER LT COMPLETE 2+V CLINICAL HISTORY: f/u TECHNIQUE: COMPARISON: CR,XR XR SHOULDER LT COMPLETE 2+V from 08/03/2020 FINDINGS: Two views were obtained. Previously described comminuted displaced fracture the proximal humerus is again noted, no gross interval change in alignment comparison with examination August 03. Humeral he ad is again noted to be subluxed from glenoid fossa. IMPRESSION: RADIATION DOSE DELIVERED: Total DLP
== END 2020-08-10 14:13 | disposition home or self-care (01) ==
LOC: DIORS 14:13
PROVIDERS: PCP Nurse Practitioner Family; Referring Provider Nurse Practitioner Family; Visit Provider Student in an Organized Health Care Education/Training Program
DX: S42.292A Other displaced fracture of upper end of left humerus, initial encounter for closed fracture (principal)
CPT/HCPCS: 73030

== ENCOUNTER 2020-08-17 11:40 | Outpatient (CLI) | payer BC, SELFPAY ==
--- NOTE | 2020-08-17 10:45 | DI.RAD_ITS ---
EXAM: XR SHOULDER LT COMPLETE 2+V CLINICAL HISTORY: f/u. TECHNIQUE: 2D digital imaging was performed. COMPARISON: CR XR SHOULDER LT COMPLETE 2+V from 08/10/2020 FINDINGS: BONES: There has been no change in alignment of the comminuted left humeral head fracture. No bony d estructive lesion is seen. No new fracture is identified. JOINTS: There is persistent mild inferior subluxation of the humeral head relative to the glenoid. M ild degenerative changes are seen at the acromioclavicular joint. SOFT TISSUE: Normal. IMPRESSION: Stable left humeral head fracture. DATA REPOSITORY: RADIATION DOSE DELIVERED:
== END 2020-08-17 11:41 | disposition home or self-care (01) ==
LOC: DIORS 11:41
PROVIDERS: PCP Nurse Practitioner Family; Visit Provider Student in an Organized Health Care Education/Training Program
DX: S42.292A Other displaced fracture of upper end of left humerus, initial encounter for closed fracture (principal)
CPT/HCPCS: 73030

== ENCOUNTER 2020-08-31 14:09 | Outpatient (REF) | payer BC, SELFPAY ==
[2020-08-31 21:13] LABS: ALT 82 U/L (14-59); AST 47 U/L (15-37); Albumin 3.8 g/dL (3.4-5.0); Alkaline Phosphatase 264 U/L (46-116); Bilirubin, Direct 0.2 mg/dL (0.0-0.2); Bilirubin, Total 0.4 mg/dL (0.2-1.0); Total Protein 7.2 g/dL (6.4-8.2)
[2020-09-02 11:17] LABS: HBs Antibody, Quant 3.4 mIU/mL (See Note); Hepatitis B Surface Ab Negative (See Note)
[2020-09-02 12:12] LABS: Hepatitis A Antibody IgM Negative (Negative); Hepatitis B Core Antibody Negative (Negative); Hepatitis B surface Ag Negative (Negative); Hepatitis C Ab w Rflx HCV PCR Negative (Negative)
== END 2020-08-31 14:10 | disposition home or self-care (01) ==
LOC: NCHCN 14:09
PROVIDERS: PCP Nurse Practitioner Family; Visit Provider Nurse Practitioner Family
DX: R94.5 Abnormal results of liver function studies (principal)
CPT/HCPCS: 80076; 86704; 86706; 86709; 86803; 87340

== ENCOUNTER 2020-09-21 10:36 | Outpatient (CLI) | payer BC, SELFPAY ==
--- NOTE | 2020-09-21 10:15 | DI.RAD_ITS ---
EXAM: XR SHOULDER LT COMPLETE 2+V CLINICAL HISTORY: f/u. TECHNIQUE: 2D digital imaging was performed. COMPARISON: CR XR SHOULDER LT COMPLETE 2+V from 08/17/2020 FINDINGS: BONES: There has been no significant change in alignment of the fracture involving the proximal left humerus. The fracture shows evidence of healing. No new fracture is seen. No bony destructive lesi on is seen. JOINTS: No dislocation present. Mild degenerative changes are seen at the acromioclavicular joint. SOFT TISSUE: Normal. IMPRESSION: Healing proximal left humeral fracture. DATA REPOSITORY: RADIATION DOSE DELIVERED:
== END 2020-09-21 10:37 | disposition home or self-care (01) ==
LOC: DIORS 10:36
PROVIDERS: PCP Nurse Practitioner Family; Referring Provider Nurse Practitioner Family; Visit Provider Student in an Organized Health Care Education/Training Program
DX: S42.292D Other displaced fracture of upper end of left humerus, subsequent encounter for fracture with routine healing (principal)
CPT/HCPCS: 73030

== ENCOUNTER 2020-09-23 20:43 | Outpatient (REF) | payer BC, SELFPAY ==
[2020-09-23 21:43] LABS: ALT 29 U/L (14-59); AST 19 U/L (15-37); Albumin 3.7 g/dL (3.4-5.0); Alkaline Phosphatase 134 U/L (46-116); Bilirubin, Direct 0.1 mg/dL (0.0-0.2); Bilirubin, Total 0.4 mg/dL (0.2-1.0); Total Protein 6.9 g/dL (6.4-8.2)
== END 2020-09-23 20:44 | disposition home or self-care (01) ==
LOC: LBN 20:43
PROVIDERS: PCP Nurse Practitioner Family; Visit Provider Internal Medicine Gastroenterology
DX: R94.5 Abnormal results of liver function studies (principal)
CPT/HCPCS: 80076

== ENCOUNTER 2020-10-20 15:16 | Outpatient (CLI) | payer BC, SELFPAY ==
--- NOTE | 2020-10-20 15:19 | DI.RAD_ITS ---
Exam(s) XR SHOULDER LT COMPLETE 2+V EXAM: XR SHOULDER LT COMPLETE 2+V CLINICAL HISTORY: f/u. TECHNIQUE: 2D digital imaging was performed. COMPARISON: CR XR SHOULDER LT COMPLETE 2+V from 09/21/2020 FINDINGS: Fracture at the humeral neck with mild impaction is again noted. Fracture was also noted to involve the greater tuberosity as well as the surgical neck. There appears to be relatively stable position fracture fragments. No glenohumeral dislocation evident. Subacromial space is not diminished. IMPRESSION: Stable appearance. DATA REPOSITORY: RADIATION DOSE DELIVERED:
== END 2020-10-20 15:17 | disposition home or self-care (01) ==
LOC: DIORS 15:16
PROVIDERS: PCP Nurse Practitioner Family; Referring Provider Nurse Practitioner Family; Visit Provider Student in an Organized Health Care Education/Training Program
DX: S42.222D 2-part displaced fracture of surgical neck of left humerus, subsequent encounter for fracture with routine healing (principal)
CPT/HCPCS: 73030

== ENCOUNTER 2020-12-14 15:43 | Outpatient (REF) | payer BC, SELFPAY ==
[2020-12-14 21:22] LABS: Abs Immature Grans 0.01 10^3/uL (0.0-0.06); Absolute Basophil Count 0.08 10^3/uL (0.0-0.2); Absolute Lymphocyte Count 2.28 10^3/uL (1.2-3.4); Absolute Monocyte Count 0.54 10^3/uL (0.1-0.8); Absolute Neutrophil Count 4.72 10^3/uL (1.2-6.7); Eosinophils % 6.2; HCT 48.1 % (36.0-46.0); HGB 15.8 g/dL (11.2-15.7); Immature Grans % 0.1; MCH 29.8 pg (27.0-33.0); MCHC 32.8 % (32.0-36.0); MCV 90.8 fL (80-95); MPV 10.6 fL (8.0-11.0); Monocytes % 6.6; Neutrophils % 58.1; Nucleated RBC 0 %; Platelet Count 321 10^3/uL (130-400); RDW 13.7 % (11.7-14.6); RDW-SD 45.6 fL; WBC 8.13 10^3/uL (4.4-10.8)
[2020-12-14 22:29] LABS: Iron 102 ug/dL (50-170); Total Iron Binding Capacity 319 ug/dL (250-450); Transferrin Sat 32 % (15-50)
[2020-12-14 22:52] LABS: ALT 33 U/L (14-59); AST 24 U/L (15-37); Albumin 3.7 g/dL (3.4-5.0); Alkaline Phosphatase 134 U/L (46-116); BUN 14 mg/dL (7-18); Bilirubin, Total 0.5 mg/dL (0.2-1.0); CREATININE 0.8 mg/dL (0.55-1.02); Calcium 9.4 mg/dL (8.5-10.1); Chloride 106 mmol/L (98-107); Glucose 121 mg/dL (74-106); Magnesium 2.1 mg/dL (1.8-2.4); Potassium 4.2 mmol/L (3.5-5.1); Sodium 142 mmol/L (136-145); TSH (W/Ref FT4) 1.42 uIU/mL (0.36-3.74); Total Protein 7.1 g/dL (6.4-8.2); Vitamin B12 643 pg/mL (193-986)
[2020-12-16 05:32] LABS: Vitamin D 25 Total 47.1 ng/mL (30-100)
[2020-12-16 11:53] LABS: Parathyroid Hormone,Intact 42 pg/mL (19-88)
== END 2020-12-14 15:44 | disposition home or self-care (01) ==
LOC: NCHCN 15:43
PROVIDERS: PCP Nurse Practitioner Family; Visit Provider Nurse Practitioner Family
DX: R94.5 Abnormal results of liver function studies (principal); K83.09 Other cholangitis; D47.3 Essential (hemorrhagic) thrombocythemia; M81.0 Age-related osteoporosis without current pathological fracture; E21.0 Primary hyperparathyroidism; E66.9 Obesity, unspecified; M79.602 Pain in left arm; R53.83 Other fatigue
CPT/HCPCS: 80053; 82306; 82607; 83540; 83550; 83735; 83970; 84443; 85025

== ENCOUNTER 2021-01-05 14:45 | Outpatient (CLI) | payer BC, SELFPAY ==
--- NOTE | 2021-01-05 14:30 | DI.RAD_ITS ---
Exam(s) XR SHOULDER LT COMPLETE 2+V EXAM: XR SHOULDER LT COMPLETE 2+V INDICATION: LEFT HUMERUS F/U. COMPARISON: CR XR SHOULDER LT COMPLETE 2+V from 10/20/2020 TECHNIQUE: 2D digital imaging was performed. FINDINGS: Has been continued healing at the fracture the proximal humerus and humeral head. No new abnormaliti es are seen. DATA REPOSITORY: RADIATION DOSE DELIVERED:
== END 2021-01-05 14:46 | disposition home or self-care (01) ==
LOC: DIORS 14:45
PROVIDERS: PCP Nurse Practitioner Family; Referring Provider Nurse Practitioner Family; Visit Provider Student in an Organized Health Care Education/Training Program
DX: S42.202D Unspecified fracture of upper end of left humerus, subsequent encounter for fracture with routine healing (principal); X58.XXXD Exposure to other specified factors, subsequent encounter
CPT/HCPCS: 73030

== ENCOUNTER 2021-01-29 22:19 | Emergency (ER) | payer BC, SELFPAY ==
[2021-01-29] VITALS (7 sets, daily range): BP systolic 104–127; BP diastolic 53–69; PULSE 63–76; RESP 18; TEMP 36.6–36.9; O2SAT 93–95
--- NOTE | 2021-01-29 22:30 | RT.EKG_ITS ---
APPROVED REPORT Exam: Resting ECG Reason for Exam: epigastric pain Patient Location: E HR:61 bpm ECG Measurements Heart Rate 61 AXIS CA 135 P 59 QRSd 96 QRS -4 QT 405 T -16 QTc 410 Conclusion Sinus rhythm...normal P axis, V-rate 60- 99 Physician: no stemi
--- NOTE | 2021-01-29 22:30 | DI.CT_ITS ---
Exam(s) CT ABDOMEN PELVIS W EXAM: CT ABDOMEN PELVIS W CLINICAL HISTORY: fever, ERCP procedure yesterday. TECHNIQUE: Imaging Protocol: Axial computed tomography images with coronal and sagittal reformatted images were created and reviewed CONTRAST MATERIAL: Intravenous: Omnipaque 350 Contrast volume:100 ml Oral: no COMPARISON: No exams were available for comparison FINDINGS: ABDOMEN: Lung Bases: Atelectasis right lung base. Liver: Enlarged fatty liver. No measurable mass. Gallbladder and biliary tract: Status post cholecystectomy. Common bile duct stent. Air seen in viki iary tree. No significant postsurgical seroma or evidence of abscess. Pancreas: Normal density, no abnormal calcifications or inflammatory process. No mass visible. Spleen: Normal. Kidneys: Normal size, contour and axis. No radiodense stones or obstructive uropathy. No masses seen. Adrenal glands: No masses seen. Abdominal Aorta: Abdominal portion non-dilated. Soft tissues: Small fatty containing umbilical hernia. PELVIS: Bladder: No gross wall thickening. No calculi.No focal mass. Bowel: No obstruction or bowel wall thickening. Appendix normal. Peritoneal cavity: No ascites, collection or mesenteric inflammatory response. Bones: Within normal limits for age. Reproductive organs: Within normal limits. Lymph nodes: Unremarkable. Impression: Common bile duct stent and pneumobilia. No evidence of fluid collection or abscess. Unremarkable pa ncreas. RADIATION DOSE DELIVERED: 1,481.18mGy.cm Total DLP DATA REPOSITORY: All CT scans at this facility are submitted to the National Radiology Data Registry (NRDR) Dose Index Registry (DIR) with the [employer] (A[employer]). RADIATION OPTIMIZATION: All CT scans at this facility use at least one of these dose optimization te chniques: automated exposure control; mA and/or kV adjustment per patient size (includes targeted exa ms where dose is matched to clinical indication); or iterative reconstruction.
--- NOTE | 2021-01-29 22:39 | ED.GENADUL_ITS ---
Discharge Plan Disposition Patient Disposition: HOME Condition: Good Discharge Details Clinical Impression: Pneumonia, Acute epigastric pain Primary Care Provider: Holley Faith ED Provider: Keyon Mireles Home Meds and New Rx's Prescriptions: New amoxicillin-pot clavulanate [Augmentin] 875-125 mg tablet 1 tab PO BID 7 Days Qty: 14 RF: 0 Continued cholecalciferol (vitamin D3) 10 mcg (400 unit) capsule 10 mcg PO DAILY RF: 0 magnesium 30 mg tablet 30 mg PO DAILY RF: 0 calcium carbonate [Calcium 500] 500 mg calcium (1,250 mg) tablet 500 mg PO BID RF: 0 liver plex 1 cap PO DAILY RF: 0 Dupixent Pen 300 mg/2 mL pen injector 600 mg subcut Q2W RF: 0 potassium chloride 8 mEq tablet extended release 8 meq PO DAILY RF: 0 omeprazole 20 mg capsule,delayed release(DR/EC) 20 mg PO DAILY RF: 0 montelukast [Singulair] 10 mg tablet 10 mg PO DAILY RF: 0 zolpidem [Ambien] 5 mg tablet 5 mg PO QHS PRNRF: 0 valacyclovir [Valtrex] 1 gram tablet 1,000 mg PO DAILY PRNRF: 0 fluticasone propion-salmeterol [Advair Diskus] 1 EACH blister with device 1 ea Inhalation BID RF: 0 albuterol sulfate [ProAir HFA] 8.5 GM HFA aerosol inhaler 8.5 gm Inhalation DIRECTED PRNRF: 0 epinephrine 0.3 MG/SYR auto-injector 0.3 mg IJ PRN PRN (Reason: Anaphylaxis) Qty: 1 RF: 0 fluticasone propion-salmeterol [Advair Diskus] 100-50 mcg/dose Blister With Device 1 inh INHALATION DAILY RF: 0 Discharge Instructions Instructions: Pneumonia (ED) Additional Instructions: At this time you have evidence of mild pneumonia in your right lung. This may be secondary to a very mild side effect of the procedure that you had. Please take the antibiotic Augmentin as directed. Your antibiotic prescription has been sent to your pharmacy on file. Please drink plenty of fluids and stay well-hydrated. Please stick with a mild diet bananas, rice, applesauce and oatmeal for the next few days as your stomach irritation improves. If you notice any worsening of your symptoms, or any new symptoms such as vo miting, diarrhea, fever, chills, shortness of breath, chest pain, numbness, weakness, or fainting , please return immediately to the emergency department for reevaluation. Please follow up with your primary care provider as soon as possible for reassessment and reevaluation. As always, it was a pleasure participating in your medical care today. 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 Patient states that the procedure was unremarkable, she had pain during the procedure and some slightly increased pain afterwards but it was otherwise unchanged from her previous procedures. She vomited multiple times yesterday, then developed a fever at home of 103. Since then the fever has gone down and off late between the 99th in the low 100s. She did take naproxen yesterday but no antipyretics today. She is afebrile here. Epigastric pain is gnawing in nature. She denies any severe chest heaviness or chest tightness. No radiation to her arm or neck. No history of cardiac disease, no family history of cardiac disease. She denies any previous tobacco use. She denies any exertional component. No other complaints at this time. She denies diarrhea. No blood in her emesis. She has had her [employer] Covid vaccine. Physical exam demonstrates mild epigastric tenderness, no other abnormalities on exam otherwise. No chest pain that is reproducible. No rash. No evidence of shingles. Differential includes mild pancreatitis postprocedure, less likely perforation, less likely viral gastroenteritis versus less we will gently rehydrate, do a CT scan, evaluate for less likely cardiac etiology, monitor closely and reassess 1 AM Laboratory work-up is returned, lipase normal, troponin normal, EKG unremarkable, urinalysis negative. Patient does have mild elevation in AST and ALT, but relatively unremarkable compared to her baseline from previous visits. Lipase shows no evidence of pancreatitis. Lactate normal. Patient does have a slightly elevated white count at 16, no bands. Mild left shift. X-ray shows evidence of mild right infiltrate, CT scan shows no evidence of complications observed or related to ERCP, no evidence of pancreatitis, she does have mild pneumonia. Likely secondary to minimal aspiration during procedure. We will start the patient on Augmentin. Patient's vital signs notably stable, stable for discharge home. Does not require inpatient admission at this time. Recommend continued mild diet at home, plenty of fluids, and antibiotic. Discussed red flags which to return and close follow-up with PCP. I have extensively reviewed the treatment plan and discharge instructions with the patient and their family. I have addressed all patient concerns at this time. The patient and family was made aware of what symptoms to monitor for that would warrant a return to the emergency department. Discussed the plan with the patient and family, they demonstrate verbal understanding and agreement with our assessment and plan at this time. The documentation in this chart was dictated using [employer] dictation software. Please excuse any dictation errors. FINDINGS: Lungs: Mild opacity noted at the right lung base. Left lung is clear. Pulmonary vessels are not congested. Pleural spaces: Mild blunting noted at the right costophrenic angle. Heart/Mediastinum: No evidence of pneumomediastinum. Heart size normal. Bones/joints: Thoracic kyphosis is exaggerated. Bone mineralization appears low. IMPRESSION: 1. Mild right pleural effusion. 2. Right basilar atelectasis/consolidation. FINDINGS: Lungs: Mild consolidation or scarring is noted at the right lung base. Pleural spaces: No pleural effusions are observed on CT. Liver: Liver attenuation is low. No evidence of hematoma or laceration. No evidence of mass. Gallbladder and bile ducts: Common bile duct stents noted and appear appropriate position. Mild pneumobilia present. Cholecystectomy clips noted. Mild fat stranding noted in the sima hepatis. Pancreas: Pancreas appears normal. Negative for inflammatory changes around the pancreas. Negative for pancreatic ductal dilatation. Spleen: Normal. No splenomegaly. Adrenal glands: Normal. No mass. Kidneys and ureters: Normal. No hydronephrosis. Stomach and bowel: Collapsed stomach. Small bowel is not dilated. No evidence of pneumatosis. Negative for inflammatory changes around the colon. Stool burden is minimal. Scattered diverticula are present. Appendix: Normal appendix. Intraperitoneal space: Negative for free fluid or free air. Negative for abscess. Vasculature: Unremarkable. No abdominal aortic aneurysm. Lymph nodes: Unremarkable. No enlarged lymph nodes. Urinary bladder: Unremarkable as visualized. Reproductive: Unremarkable as visualized. Bones/joints: Unremarkable. No acute fracture. Soft tissues: Negative for abdominal wall hernia. Other findings: Right hemidiaphragm is elevated. IMPRESSION: 1. No complications observed related to ERCP. 2. No evidence of pancreatitis by CT. 3. Hepatic steatosis. 4. Elevated right hemidiaphragm. Thank you for allowing us to participate in the care of your patient. Dictated and Authenticated by: Ambrocio Boyle MD 01/30/2021 12:41 AM Eastern Time ([place] & [place]) HPI General Date/Time Provider Initiated Documentation: 01/29/21 22:26 . HPI Narrative: 65-year-old female with a past medical history of asthma, oste oporosis, hyperparathyroidism, and cholecystectomy with subsequent scarring of the common bile duct leading to recurrent episodes of pancreatitis and transaminitis requiring multiple episodes of restenting of the common bile duct who just had an ERCP and stent placed yesterday at [facility] who presents today for fever chills nausea vomiting and epigastric pain. Patient states that the procedure was unremarkable, she had pain during the procedure and some slightly increased pain afterwards but it was otherwise unchanged from her previous procedures. She vomited multiple times yesterday, then developed a fever at home of 103. Since then the fever has gone down and off late between the 99th in the low 100s. She did take naproxen yesterday but no antipyretics today. She is afebrile here. Epigastric pain is gnawing in nature. She denies any severe chest heaviness or chest tightness. No radiation to her arm or neck. No history of cardiac disease, no family history of cardiac disease. She denies any previous tobacco use. She denies any exertional component. No other complaints at this time. She denies diarrhea. No blood in her emesis. She has had her [employer] Covid vaccine. Related Data Home Medications Medication Instructions Recorded Confirmed albuterol sulfate [ProAir HFA] 8.5 gm INHALATION DIRECTED PRN 09/28/16 01/29/21 epinephrine 0.3 mg IJ PRN PRN #1 kit 09/28/16 01/29/21 fluticasone propion-salmeterol 1 ea INHALATION BID 09/28/16 01/29/21 [Advair Diskus] montelukast 10 mg tablet 10 mg PO DAILY 01/07/20 01/29/21 omeprazole 20 mg capsule,delayed 20 mg PO DAILY 01/07/20 01/29/21 release zolpidem 5 mg tablet 5 mg PO QHS PRN 01/07/20 01/29/21 calcium carbonate 500 mg calcium 500 mg PO BID 01/08/20 01/29/21 (1,250 mg) tablet cholecalciferol (vitamin D3) 10 10 mcg PO DAILY 01/08/20 01/29/21 mcg (400 unit) capsule liver plex 1 cap PO DAILY 01/08/20 01/29/21 magnesium 30 mg tablet 30 mg PO DAILY 01/08/20 01/29/21 valacyclovir 1 gram tablet 1,000 mg PO DAILY PRN 08/04/20 01/29/21 dupilumab 300 mg/2 mL subcutaneous 600 mg SUBCUT Q2W ml 09/21/20 01/29/21 pen injector potassium chloride 8 mEq 8 meq PO DAILY 01/05/21 01/29/21 tablet,extended release fluticasone propion-salmeterol 1 inh INHALATION DAILY 01/29/21 01/29/21 [Advair Diskus] amoxicillin-pot clavulanate 1 tab PO BID 7 Days #14 tab 01/30/21 [Augmentin] Previous Rx's Medication Instructions Recorded epinephrine 0.3 mg IJ PRN PRN #1 kit 09/28/16 amoxicillin-pot clavulanate 1 tab PO BID 7 Days #14 tab 01/30/21 [Augmentin] Allergies Allergy/AdvReac Type Severity Reaction Status Date / Time No Known Allergies Allergy Unverified 01/29/21 22:38 General Stated Complaint: Fever FITZ: 3 Review of Systems All systems reviewed & are unremarkable except as noted in HPI and below PFSH Medical History Abdominal pain Asthma Chronic back pain Chronic insomnia Dyspepsia Fatty liver Genital herpes Hyperparathyroidism Resolved after parathyroidectomy Kidney stone on left side Leg cramps Lipoma of back Nasal polyp Obese Osteoporosis Rosacea Thrombocytosis Pt. denies this Surgical History Colon polyp Inflammatory polyp 01/2020, repeat 10 years Hx of cholecystectomy Hx of parathyroidectomy 2017 Social History Smoking/Tobacco Use Status: Never Smoking risk assessment performed?: Yes Alcohol Intake: current Alcohol Intake frequency: a few times a month Alcohol type: beer and wine Substance use type: does not use Current gender identity: female Do you feel safe at home: Yes Do you feel safe in your relationship?: Yes Exam Narrative Exam Narrative: 1.Const: Well-nourished, Well-developed, appearing stated age 2.Eyes: PERRL, no conjunctival injection, and symmetrical lids. 3.ENT: Atraumatic external nose and ears. Moist MM. Neck: Symmetric, trachea midline, No thyromegaly. 4.CVS: +S1/S2, No murmurs or gallops. Peripheral pulses 2+ and equal in all extremities. Brisk capillary refill in all extremities. No reproducible chest pain 5.RESP: Unlabored respiratory effort. Clear to auscultation bilaterally. No wheezes rales or rhonchi 6.GI: Soft, nondistended, mild epigastric tenderness is reproducible. Bowel sounds present but slightly reduced throughout. No guarding or rebound. No evidence of an acute surgical abdomen. 7.MSK: Normocephalic/Atraumatic, Extremities w/o deformity or ttp No cyanosis or clubbing, Normal movement of all extremities 8.Skin: Warm, Dry. No rashes or lesions. 9.Neuro: member of technical staff II-XII grossly intact. Sensation grossly intact, no focal neurologic deficits. 10.Psych: (AAO) x3. Appropriate mood and affect Course Vital Signs Vital signs: Vital Signs Temperature 36.6 C 01/29/21 22:29 Pulse 76 01/29/21 22:29 Respiratory Rate 18 01/29/21 22:29 Blood Pressure 127/69 01/29/21 22:29 Pulse Oximetry 94 01/29/21 22:29 Temperature 36.6 C 01/29/21 22:29 Temperature Source Temporal Artery Scan 01/29/21 22:29 Pulse 76 01/29/21 22:29 Respiratory Rate 18 01/29/21 22:29 Respiratory Effort Non-Labored 01/29/21 22:36 Blood Pressure 127/69 01/29/21 22:29 Blood Pressure Position Sitting 01/29/21 22:29 Pulse Oximetry 94 01/29/21 22:29 Oxygen Delivery Method Room Air 01/29/21 22:29 Oxygen Flow Rate 0 01/29/21 22:29 Pain Level 6 01/29/21 22:29 Lab/Test Results Lab/Test Results: 01/29/21 22:37 Blood Blood Culture - Pending 01/29/21 22:37 Blood Blood Culture - Pending
[2021-01-29 23:00] LABS: Source Nasal/Nares
[2021-01-29] MEDS: Normal Saline 1,000 ML 1000 ML IV (23:00)
[2021-01-29 23:02] LABS: Abs Immature Grans 0.08 10^3/uL (0.0-0.06); Absolute Basophil Count 0.08 10^3/uL (0.0-0.2); Absolute Eosinophil Count 0.02 10^3/uL (0.0-0.7); Absolute Lymphocyte Count 1.22 10^3/uL (1.2-3.4); Absolute Monocyte Count 0.79 10^3/uL (0.1-0.8); Basophils % 0.5; Eosinophils % 0.1; HCT 43.9 % (36.0-46.0); HGB 14.5 g/dL (11.2-15.7); Immature Grans % 0.5; Lymphocytes % 7.6; MCH 29.8 pg (27.0-33.0); MCV 90.1 fL (80-95); MPV 9.8 fL (8.0-11.0); Monocytes % 4.9; Neutrophils % 86.4; Nucleated RBC 0 %; Platelet Count 217 10^3/uL (130-400); RBC 4.87 10^6/uL (3.93-5.22); RDW 13.1 % (11.7-14.6); WBC 16.06 10^3/uL (4.4-10.8)
[2021-01-29 23:06] LABS: Absolute Neutrophil Count 13.88 10^3/uL (1.2-6.7)
--- NOTE | 2021-01-29 23:15 | DI.RAD_ITS ---
Exam(s) XR CHEST 2V PA LATERAL EXAM: XR CHEST 2V PA LATERAL CLINICAL HISTORY: epigastric pain afer ercp TECHNIQUE: 2D digital imaging was performed. COMPARISON: CR CHEST 2 VIEWS PA,LAT from 05/04/2014 FINDINGS: The exam is limited by elevated right diaphragm and patient body habitus. Heart size is within ro l limits. Are streaky densities above the right diaphragm, consistent with scarring, not significant ly changed from previous exam. No for focal infiltrate or effusion is seen. IMPRESSION: No acute abnormality. DATA REPOSITORY: RADIATION DOSE DELIVERED:
[2021-01-29 23:20] LABS: ALT 61 U/L (14-59); AST 45 U/L (15-37); Albumin 3.2 g/dL (3.4-5.0); Alkaline Phosphatase 120 U/L (46-116); Anion Gap 9.5 mmol/L (3-11); BUN 12 mg/dL (7-18); Bilirubin, Total 1.4 mg/dL (0.2-1.0); CO2 26.5 mmol/L (21.0-32.0); CREATININE 0.9 mg/dL (0.55-1.02); Chloride 103 mmol/L (98-107); Glucose 123 mg/dL (74-106); Lipase 163 U/L (73-393); Potassium 3.6 mmol/L (3.5-5.1); Sodium 139 mmol/L (136-145); Total Protein 7.1 g/dL (6.4-8.2)
[2021-01-29 23:21] LABS: Troponin I < 0.05 ng/mL (<0.06)
--- NOTE | 2021-01-29 23:44 | NUR.NOTE ---
Nursing Note: Patient to CT and x-ray via stretcher with Quality Systems Technician.
[2021-01-30] LABS: COVID-19 PCR Negative (Negative)
[2021-01-30 00:09] VITALS: O2SAT 95
[2021-01-30 00:10] VITALS: O2SAT 95
[2021-01-30] MEDS: Omnipaque 350 MG/ML 100 ML BTL IJ (00:11)
[2021-01-30 00:12] VITALS: BP 109/93; PULSE 68; O2SAT 93
[2021-01-30 00:21] LABS: Bilirubin Negative (Negative); Blood Trace-lysed (Negative); Clarity Clear (Clear); Glucose Negative (Negative); Ketones 15 mg/dL (Negative); Leukocyte Esterase Trace (Negative); Nitrite Negative (Negative); Urobilinogen 0.2 EU/dL (Up TO 0.2)
--- NOTE | 2021-01-30 00:28 | DI.VRAD_ITS ---
Addendum created by Ambrocio Boyle MD on 01/30/2021 12:33:52 AM EDT: Subsequent CT abdomen pelvis is available. There is no evidence of right pleural effusion. Opacity at the right lung base corresponds to an elevated right hemidiaphragm and mild opacity in the lung, likely chronic scarring or atelectasis. Initial report created on 01/30/2021 12:27:51 AM EDT: PROCEDURE INFORMATION: Exam: XR Chest Exam date and time: 01/29/2021 11:26 PM Age: 65 years old Clinical indication: Patient HX: Epigastric pain after ercp TECHNIQUE: Imaging protocol: XR of the chest. Views: 2 views. COMPARISON: CR CHEST 2 VIEWS PA,LAT 05/04/2014 3:22 PM FINDINGS: Lungs: Mild opacity noted at the right lung base. Left lung is clear. Pulmonary vessels are not congested. Pleural spaces: Mild blunting noted at the right costophrenic angle. Heart/Mediastinum: No evidence of pneumomediastinum. Heart size normal. Bones/joints: Thoracic kyphosis is exaggerated. Bone mineralization appears low. IMPRESSION: 1. Mild right pleural effusion. 2. Right basilar atelectasis/consolidation. Dictated and Authenticated by: Ambrocio Boyle MD. Ordering:LISET Ta MD
[2021-01-30 00:41] LABS: Bacteria Rare HPF (Negative); C & S Indicated? No/Sq. Contamination; Casts Negative LPF (Negative); Crystals Negative HPF (Negative); Epithelial Cells Moderate HPF (Negative); Mucus Negative (Negative); Other Cells Few Transitional (Negative)
--- NOTE | 2021-01-30 00:42 | DI.VRAD_ITS ---
PROCEDURE INFORMATION: Exam: CT Abdomen And Pelvis With Contrast Exam date and time: 01/29/2021 10:39 PM Age: 65 years old Clinical indication: Abdominal pain; Patient HX: Epigastric pain, fever, ercp procedure 01/28/21 TECHNIQUE: Imaging protocol: Computed tomography of the abdomen and pelvis with contrast. COMPARISON: SD US ABDOMEN 07/10/2019 7:31 AM FINDINGS: Lungs: Mild consolidation or scarring is noted at the right lung base. Pleural spaces: No pleural effusions are observed on CT. Liver: Liver attenuation is low. No evidence of hematoma or laceration. No evidence of mass. Gallbladder and bile ducts: Common bile duct stents noted and appear appropriate position. Mild pneumobilia present. Cholecystectomy clips noted. Mild fat stranding noted in the sima hepatis. Pancreas: Pancreas appears normal. Negative for inflammatory changes around the pancreas. Negative for pancreatic ductal dilatation. Spleen: Normal. No splenomegaly. Adrenal glands: Normal. No mass. Kidneys and ureters: Normal. No hydronephrosis. Stomach and bowel: Collapsed stomach. Small bowel is not dilated. No evidence of pneumatosis. Negative for inflammatory changes around the colon. Stool burden is minimal. Scattered diverticula are present. Appendix: Normal appendix. Intraperitoneal space: Negative for free fluid or free air. Negative for abscess. Vasculature: Unremarkable. No abdominal aortic aneurysm. Lymph nodes: Unremarkable. No enlarged lymph nodes. Urinary bladder: Unremarkable as visualized. Reproductive: Unremarkable as visualized. Bones/joints: Unremarkable. No acute fracture. Soft tissues: Negative for abdominal wall hernia. Other findings: Right hemidiaphragm is elevated. IMPRESSION: 1. No complications observed related to ERCP. 2. No evidence of pancreatitis by CT. 3. Hepatic steatosis. 4. Elevated right hemidiaphragm. Dictated and Authenticated by: Ambrocio Boyle MD. Ordering:LISET Ta MD
[2021-01-30] MEDS: Amox. 875/Clav. 125, 2 TABS/BTL 1 TAB PO (00:55)
[2021-01-30 01:00] VITALS: BP 109/94; PULSE 65; RESP 18; TEMP 36.6; O2SAT 95
--- NOTE | 2021-01-30 13:13 | NUR.NOTE ---
Nursing Note: Patient called stating that the [facility] was closed today and tomorrow. Could we call it in to [facility]. With Dr. Merino consent the prescription was called in to the [facility] in [place]. Clarisa Stone
--- NOTE | 2021-02-01 09:00 | W.ED.FU ---
Date of service: 02/01/21 Time of Service: 09:00 Follow Up Plan: Call made to patient regarding positive blood culture for E. coli. Patient was prescribed Augmentin twice daily x7 days. Patient states she feels somewhat better fever has gone away she reports feeling some abdominal cramping and diarrhea. She has taken the antibiotic as directed. Discussed home care and to return if any worsening and follow-up with PCP patient verbalized understanding
== END 2021-01-30 01:05 | disposition home or self-care (01) ==
PROVIDERS: Emergency Provider Student in an Organized Health Care Education/Training Program; PCP Nurse Practitioner Family
DX: R50.9 Fever, unspecified (principal); R78.81 Bacteremia; J18.8 Other pneumonia, unspecified organism; R10.13 Epigastric pain; Y84.2 Radiological procedure and radiotherapy as the cause of abnormal reaction of the patient, or of later complication, without mention of misadventure at the time of the procedure; Z20.822 Contact with and (suspected) exposure to COVID-19; Z03.818 Encounter for observation for suspected exposure to other biological agents ruled out
CPT/HCPCS: 36415; 80053; 83690; 87040; 87077; 87635; 93005; 96360; 99285; 71046; 74177; 81003; 81015; 83605; 84484; 85025; 87186; 93010; J3490

== ENCOUNTER 2021-02-20 18:22 | Outpatient (REF) | payer BC, SELFPAY ==
[2021-02-20 19:35] LABS: C Diff PCR Negative (Negative)
[2021-02-20 19:38] LABS: C Diff PCR Negative (Negative)
[2021-02-20 19:40] LABS: C Diff PCR Negative (Negative)
[2021-02-21 23:31] LABS: Campylobacter PCR Negative (Negative); Salmonella PCR Negative (Negative); Shiga Toxin PCR Negative (Negative); Shigella/Enteroinvasive Ecoli Negative (Negative)
== END 2021-02-20 18:23 | disposition home or self-care (01) ==
LOC: NCHCN 18:22
PROVIDERS: PCP Nurse Practitioner Family; Visit Provider Nurse Practitioner Family
DX: R19.7 Diarrhea, unspecified (principal)
CPT/HCPCS: 87493; 87505; 87177

== ENCOUNTER 2021-05-11 14:07 | Emergency (ER) | payer BC, SELFPAY ==
[2021-05-11] VITALS (64 sets, daily range): BP systolic 101–171; BP diastolic 49–96; PULSE 46–73; RESP 13–29; TEMP 36.8; O2SAT 94–99
--- OUTSIDE RECORDS SUMMARY | 2021-05-11 14:12 | XMS_ITS | Encounter Summary ---
:1955 Author Care Team Providers Name Role Phone Holleyciara Faith KARO Primary Care Provider [phone] [facility] Medical Records OTHER [phone] Reason for Visit Telehealth - Video/Zoom Assessment and Plan 1. Sleep related hypoxemia She was told when she was hosp italized for gall bladder surgery that her oxygen level was dropping during the night and they had to apply supplemental 02. She also has fatigue and nocturia whi ch may indicate underlying MARISELA. I discus sed the pathophysiology of obstructive sleep apnea and the potential consequences of untreated MARISELA including how it relates to her symptoms and comorbidities. I o rdered a polysomnogram and discussed wha t will take place the night of the sleep study. HST also covered. She is given a Rx for Ambien to take if needed the night of the study and is advised that if boom en she will need to not drive for at [address] eight hours after taking or longer if for any residual drowsiness. Also will need to use caution when getting up at night after taking Ambien. will see her alena k to review the results as soon as they are available. I provided greater than 40 minutes in e care of this patient, more than half the time was spent in [id number] counseling. ? sleep study, baseline diag nostic polysomnogram* ? zolpidem 5 mg tablet Discussion Note: None recorded.Patient educational handouts: No information available. Plan of Care Reminders Provider Appointments Procedure [address] 06/04/2021 8:00PM ? Office 30 Andrew Lopez 08/17/2021 WELFARE ADMINISTRATOR 11:30AM Lab None ? ? recorded. Referral None ? ? recorded. Procedures None ? ? recorded. Surgeries None ? ? recorded. Imaging None ? ? recorded. Medications Name Start Date ? ? Advair Diskus 250 mcg-50 mcg/dose powder for inhalatio n ? Inhale 1 puff twice a day by inhalation route. Dupixent 300 mg/2 mL subcutaneous pen injector ? Inject 2 mL every 2 weeks by subcutaneous route. fluticasone propionate 50 mcg/actuation blister powder for inhalation ? Inhale 2 puffs twice a day by inhalation route. folic acid 400 mcg tablet ? Take 1 tablet every day by oral route. magnesium ? potassium 99 mg tablet ? Take 1 tablet every day by oral route. Proair Digihaler 90 mcg/actuation aerosol powder breat h act, sensor ? Inhale 2 puffs every 4 hours by inhalation route. Valtrex 1 gram tablet ? Take 1 tablet every 12 hours by oral route. zolpidem 5 mg tablet ? take 1-2 PO night of sleep study if needed Medications Administered None recorded. Vitals Height Weight BMI 5 ft 5.5 in 210 lbs 34.4 kg/m2 Results Lab Results None recorded. Allergies Code Code System Name Reaction Severity Onset NKDA ? ? ? Problems Name Status Onset Date Source ? Genital Herpes Simplex Active 03/28/2021 ? Lipoma of Back Active 03/28/2021 ? Thrombocytosis Active 03/28/2021 ? Primary Hyperparathyroidism Active 03/28/2021 ? Obesity Active 03/28/2021 ? Insomnia Active 03/28/2021 ? Polyp of Nasal Cavity Active 03/28/2021 ? Asthma Active 03/28/2021 ? Indigestion Active 03/28/2021 ? Steatosis of Liver Active 03/28/2021 ? Kidney Stone Active 03/28/2021 ? Rosacea Active 03/28/2021 ? Chronic Thoracic Back Pain Active 03/28/2021 ? Pain in Left Arm Active 03/28/2021 ? Cramp in Lower Limb Active 03/28/2021 ? Osteoporosis Active 03/28/2021 ? Fatigue Active 03/28/2021 ? Sleep Related Hypoxemia Active 03/30/2021 ? Procedures None recorded. Vaccine List None recorded. Social History Tobacco Smoking Status Never Smoker What is your level of alcohol None consumption? Live alone or with others? with others Do you or have you ever used any N other forms of tobacco or nicotine? What is your level of caffeine Occasional Notes: 1c coffee a day consumption? Are you currently employed? Y Do you use any illicit or N recreational drugs? 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 Past Encounters 03/30/2021 Sleep Related Hypoxemia Rosemarie Lopez NP: [address] [place] [phone], Ph. History of Present Illness Note: <div>Alexa Ritchie has a Zoom consultation at the request of Ning Faith NP for evaluation of fatigue. She has given consent to have a telehealth visit. Patient is at home, provider is in the office.</div><div>
</div><div>Alexa has a medical history to include hyperparathyroidism, asthma, back pain, obesity, kidney stone, obesity, osteoporosis, rosacea, liver steatosis and thrombocytosis. 09/23/2020 CMP alk phos 134. 05/14/20 CBC wnl</div><div>
</div><div>She says while hospitalized at [facility] after complications from a cholecystectomy she was put on oxygen for sleep because she kept "setting the alarms off". </div><div>
</div><div>{{Patient Alexa#}} feels {{his her*}} biggest problem with sleep is {{snoring waking up a lot not feeling rested not feeling rested and waking alot#}}. {{He She*}} typically goes to bed at {{9 9:30-10:50#}}pm. It takes {{5 5-10#}} minutes to fall asleep. {{He She*}} wakes up {{1 2 3 1-2#}} times a night to go to the {{unknown reason pain bathro om*}} and it takes {{ a few#}} minutes to get back to sleep. {{He She*}} gets up at {{5 6 7 8 5-9#}}am to start {{his her*}} day. {{He She*}} does occasionally take naps after work for 30 minutes. {{He She*}} has no disturbances to {{his her*}} sleep. {{He She*}} has never had a sleep study. {{He She*}} sleeps {{alone with someone*}} in a bed.</div><div>
</div><div>SLEEP QUALITY: Feels quality of sleep most nights is {{good* okay poor}}.</div><div><br&g t;</div><div>
</div><div>DAYTIME ALERTNESS: Reports level of alertness most days to be {{alert low energy sleepy very sleepy low energy to very sleepy#}}.</div>&lt ;div>
</div><div>
</div><div>PSYCH SYMPTOMS: {{Has Has not*}} noted worsening memory {{and or*}} concentration. {{Does have Denies current problems with*}} irritability, depression, {{and or*}} anxiety. {{Has Has not*}} noted difficulty with calculations.&lt ;/div><div>
</div><div>INSOMNIA SYMPTOMS: {{Does have Does not have Does occasionally have#}} an active mind at night when trying to sleep. {{Does have Does not have Does occasionally have#}} stressful thoughts interfering with sleep. {{Does Does not*}} watch the clock throughout the night. {{Does Does not*}} worry about getting a good night's sleep. </div><div>
</div><div>BREATHING SYMPTOMS: {{Does have* Does not have}} snoring.{{Does have Does not have*}} witnessed apnea. {{Does have Does not have*}} nocturnal choking/gasping/dyspnea.{{Does have Does not have*}} mouth breathing. {{Does have Does not have*}} nasal congestion at night.</div><div>
</div><div>
</div ><div>MOVEMENT SYMPTOMS: {{Does have* Does not have}} tossing & turning because she feels hot and coldand has to remove covers. {{Does have Does not have*}} messy sheets in the morning. {{Does have Doesnot have*}} leg or arm jerks, kicks or twitches in sleep or prior to falling asleep. {{Does Does not*}} have an aching, restless or crawling feeling in legs at night. {{Does Does not*}} have a hard time keeping legs still when trying to sleep. {{Does Does not*}} have muscle cramps or "Charliehorses". {{Does Does not*}} have sleep walking or talking.</div><div>
& lt;/div><div>
</div><div>DREAM SYMPTOMS: {{Does have Does not have*}} nightmares often that affect ability to sleep. {{Does have Does not have*}} dreams of suffocating/drowning. {{Does Does not*}} dream shortly after falling asleep. {{Does Does not*}} see dreams in the room even when awake.{{Does Does not*}} see or hear things in the room when falling asleep that aren't really there. {{Does Does not*}} see things in the road when driving that aren't really there. {{Has Has not*}} had someone see then act our their dreams. {{Has Has not*}} accidentally injured themselves while sleeping due to own movements/behaviors.</div><div>
</ div><div>CATAPLEXY SYMPTOMS: {{Does have Does not have*}} feel limp, lose strength, or fallasleep when very angry, surprised or laughing. {{Does have Does not have*}} leg, arm or face weakness when upset. {{Has Has not*}} had episodes of being unable to move when waking up which is often frig htening.</div><div>
</div><div>DRIVING: {{Has Has not*}} fallen asleep or nearly fallen asleep driving. {{Has had Has not had*}} an accident related to drowsy driving or not paying attention. {{Does Does not*}} forget the last few miles or minutes while driving. {{Has Has not*}} driven out of [place] and crossed center line or gone onto shoulder when driving. {{Has Has not*}} had a passenger tell them they look sleepy when driving.</div><div>
</div><div>ESS today 09/18</div><div>[place] Questionnaire Score 2/3</div><di v>
</div><div>This visit was performed virtually using synchronous audio-visual connection via Zoom. As such, the physical examination is necessarily limited. The risks and benefits of the use of this alternative platform were discussed with the patient and or guardian and verbal consent was obtained. My assessment and plans are based on such examination. Further evaluation, including in-person examination, may be needed depending on the response to management or today's recommendation.</div><div>
</div><div>The patient has been positively identified and has consented to a video visit.</div><div>
</div><d iv>
</div>Review of Systems: ROS as noted in the HPI Review of Systems ? Notes: <div>wakes with sore throat/ dry mouth, nocturia 1-2/night</div><div>Denies night sweats, nocturnal hear tburn and morning headaches. </div> Physical Exam ? Notes: <div>N/A</div>
--- OUTSIDE RECORDS SUMMARY | 2021-05-11 14:12 | XMS_ITS ---
:1955 Author Care Team Providers Name Role Phone [facility] MEDICAL RECORDS OTHER [phone] DUSTIN RAO PURCH[employer]ING BUYER Primary Care Provider [phone] Allergies Code Code System Name Reaction Severity Status Onset NKDA ? Medications Name Status Start Date Stop Date ? ? Advair Diskus 250 mcg-50 mcg/dose powder for inhalation Active ? Not available Inhale 1 puff twice a day by inhalation route. Dupixent 300 mg/2 mL subcutaneous pen injector Active ? Not available Inject 2 mL every 2 weeks by subcutaneous route. fluticasone propionate 50 mcg/actuation blister powder for inhal ation Active ? Not available Inhale 2 puffs twice a day by inhalation route. folic acid 400 mcg tablet Active ? Not av ailable Take 1 tablet every day by oral route. magnesium Active ? Not available potassium 99 mg tablet Active ? Not avail able Take 1 tablet every day by oral route. Proair Digihaler 90 mcg/actuation aerosol powder breath act, sen sor Active ? Not available Inhale 2 puffs every 4 hours by inhalation route. Valtrex 1 gram tablet Active ? Not availa ble Take 1 tablet every 12 hours by oral route. zolpidem 5 mg tablet Active ? Not availab le take 1-2 PO night of sleep study if needed Problems Name Status Onset Date Source ? [...] Hypoxemia Active 03/30/2021 ? Procedures None recorded. Results Lab Results None recorded. Past Encounters 03/30/2021 Sleep Related Hypoxemia Rosemarie Lopez LANDING SIGNAL OFFICER: [address] [place] [phone], Ph. Social History Tobacco Smoking Status Never Smoker Vaccine List None recorded. Plan of Care Reminders Provider Appointments None ? ? recorded. Lab None ? ? recorded. Referral None ? ? recorded. Procedures None ? ? recorded. Surgeries None ? ? recorded. Imaging None ? ? recorded. Vitals Height Weight BMI 166.37 cm 95.25 kg 34.4 kg/m2
--- NOTE | 2021-05-11 14:30 | RT.EKG_ITS ---
APPROVED REPORT Exam: Resting ECG Reason for Exam: Mid epigastric pain Patient Location: E HR:54 bpm ECG Measurements Heart Rate 54 AXIS IA 116 P 11 QRSd 97 QRS -24 QT 473 T -21 QTc 450 Conclusion Sinus bradycardia...rate< 60 Inferior infarct, age indeterminate...Q>35mS, T neg, II III aVF no STEMI, non-diagnostic EKG I have reviewed and interpreted ECG and agree with software generated interpretation.
--- NOTE | 2021-05-11 14:45 | W.ED.GENAD ---
Discharge Plan Disposition Patient Disposition: HOME Condition: Fair Discharge Details Clinical Impression: Biliary stent obstruction Primary Care Provider: Holley Faith ED Provider: Ayde Anne Home Meds and New Rx's Prescriptions: New ciprofloxacin HCl [Cipro] 500 mg tablet 500 mg PO BID Qty: 14 RF: 0 Continued cholecalciferol (vitamin D3) 10 mcg (400 unit) capsule 10 mcg PO DAILY RF: 0 magnesium 30 mg tablet 30 mg PO DAILY RF: 0 calcium carbonate [Calcium 500] 500 mg calcium (1,250 mg) tablet 500 mg PO BID RF: 0 liver plex 1 cap PO DAILY RF: 0 Dupixent Pen 300 mg/2 mL pen injector 600 mg subcut Q2W RF: 0 potassium chloride 8 mEq tablet extended release 8 meq PO DAILY RF: 0 omeprazole 20 mg capsule,delayed release(DR/EC) 20 mg PO DAILY RF: 0 zolpidem [Ambien] 5 mg tablet 5 mg PO QHS PRNRF: 0 valacyclovir [Valtrex] 1 gram tablet 1,000 mg PO DAILY PRNRF: 0 epinephrine 0.3 MG/SYR auto-injector 0.3 mg IJ PRN PRN (Reason: Anaphylaxis) Qty: 1 RF: 0 milk thistle 180 mg Capsule 150 mg PO DAILY RF: 0 glucosamine sulfate [Glucosamine] 500 mg Tablet 500 mg PO DAILY RF: 0 vitamin E 100 unit Tablet 100 unit PO DAILY RF: 0 Discharge Instructions Instructions: Endoscopic Biliary Stent Placement (DC) Referrals: Ismael Jimenez [ NON-[facility] STAFF PHYSICIAN] - (call in am to schedule ERCP, return sooner for new or worsening symptoms) Discharge Data Discharge Date/Time-TO BE ENTERED AT DEPARTURE: 05/11/21 21:20 Medical Decision Making <Shantal Rey - Last Filed: 05/12/21 09:45> 66-year-old female presents to the ER with chief complaint of midepigastric abdominal pain which has been ongoing for the last week. She describes it as throbbing and spasm associated with nausea and loose stools. She also reports a fever approximately a week ago which was 100.4 with chills. That has since resolved. She does have a past medical history of a biliary stent placed at [facility] she reports that this is her stent. She also has a past medical history of diverticulosis asthma fatty liver disease, hyperparathyroidism, kidney stones. She has not taken anything for the pain. CT abd Pelvis ordered and abdominal pain workup including lipase. Care is to be handed off to oncoming provider Ayde Anne NP pending CT abd/Pelvis. <Ayde Anne NP - Last Filed: 05/11/21 20:51> Medical Records Medical records reviewed: Yes I reviewed the patient's medical records. Medical records narrative: labs and CT scan reviewed. results discussed with Dr De Los Santos at [facility] surgery who recommends observation admission and down and back ERCP possibly tomorrow, if not Sunday. patient would prefer to try to schedule outpatient through Dr Jimenez. should be decide to be discharged for outpatient schedule, recommends for cipro 500 mg PO bid which was dispensed for home use. she was advised to return immediately for worsening symptoms or fever. she is given a second liter of NS IV prior to d/c. her pain is minimal and she is tolerating PO well. Hemodynamically stable with no fever here. Imaging Data Radiologic Study: Imaging: CT Scan (abd/pelvis) Radiologist's impression: Exam(s) PROCEDURE INFORMATION: Exam: CT Abdomen And Pelvis With Contrast Exam date and time: 05/11/2021 2:45 PM Age: 66 years old Clinical indication: Abdominal pain; Localized; Upper; Patient HX: HX of biliary stent, epigastric pain TECHNIQUE: Imaging protocol: Computed tomography of the abdomen and pelvis with contrast. Total images: 2226 Radiation optimization: All CT scans at this facility use at least one of these dose optimization techniques: automated exposure control; mA and/or kV adjustment per patient size (includes targeted exams where dose is matched to clinical indication); or iterative reconstruction. Contrast material: OMNI-PAQUE 350; Contrast volume: 100 ml; Contrast route: INTRAVENOUS (IV); COMPARISON: CT ABDOMEN PELVIS W 01/29/2021 11:45 PM FINDINGS: Lungs: Patchy scarring or atelectasis in the lung bases. Heart: Heart size normal. Mediastinal space: The visualized distal esophagus is largely contracted without gross abnormality. Liver: Mildly irregular liver contour most notable in the inferior right hepatic lobe, suspect changes of cirrhosis. No mass lesions. Moderate intrahepatic biliary ductal dilatation noted, which is mildly increased from 01/29/2021, with moderate pneumobilia. Gallbladder and bile ducts: Cholecystectomy noted. Biliary stent in place. The stent contains partially aerated content throughout much of its course, particularly distally, and the presence of pneumobilia would favor that the stent is patent. Pancreas: No acute pancreatic abnormalities are evident. No ductal dilatation or signs of pancreatitis. Spleen: Mild splenomegaly measuring 13.5 cm. No focal splenic lesions. Adrenal glands: Normal. No adrenal mass. Kidneys and ureters: No acute abnormalities. No hydronephrosis or hydroureter. No urinary tract stones are identified. There is a low-density circumscribed left renal cortical lesion suggesting renal cyst. No further imaging evaluation is required. Stomach and bowel: The proximal stomach is largely contracted, limiting its assessment. Question rugal fold thickening in the proximal half of the stomach which might be largely due to its contracted status, however cannot exclude changes of gastritis or infiltrative neoplasm, consider endoscopic assessment as clinically indicated. No ulcer crater is identified. The small bowel is nondilated with no gross abnormality. No acute colonic abnormalities. Mild diverticulosis involving the distal colon without evidence of acute diverticulitis. Appendix: The appendix is normal in caliber and demonstrates no evidence of appendicitis. Intraperitoneal space: No free fluid or air. Vasculature: Mild dilatation of the main portal vein measuring 16 mm diameter. No evidence of portal thrombosis. No other vascular abnormalities. Lymph nodes: Enlarged periportal , portacaval, and celiac nodes measuring up to 12.5 mm short axis, nonspecific Urinary bladder: The urinary bladder is largely contracted with wall thickening which may relate to its contracted status. Mild adjacent stranding. Correlate with UA for evidence of cystitis. Reproductive: Unremarkable as visualized. Bones/joints: No acute osseous abnormalities. Soft tissues: Very small fatty umbilical hernia . No evidence of associated bowel herniation or strangulation. IMPRESSION: 1. The biliary stent is unchanged in position and appears to be currently patent, with moderate pneumobilia. There is a moderate amount of partially aerated content within the stent however and there is mildly increased dilatation of the intrahepatic bile ducts compared to 01/29/2021, currently moderate in degree, which might indicate intermittent obstruction. Correlate clinically for evidence of biliary obstruction. 2. There is rugal fold thickening in the proximal stomach. This may relate to its largely contracted status, however an element of gastritis or infiltrative neoplasm could produce this appearance. Recommend endoscopic assessment. 3. Changes of cirrhosis and portal hypertension, with mildly dilated main portal vein and mild splenomegaly. 4. Enlarged periportal, portacaval, and celiac nodes, nonspecific. 5. The urinary bladder is largely contracted with wall thickening which may relate to its contracted status. Mild adjacent stranding. Correlate with UA for evidence of cystitis. Dictated and Authenticated by: Al House MD. Ordering:MICHELL Murguia MD Lab Data Lab results reviewed: Yes I reviewed the patient's lab results. Labs: Laboratory Tests Range/Units 05/11/21 05/11/21 05/11/21 14:10 14:59 14:59 WBC (4.4-10.8) 10^3/uL RBC (3.93-5.22) 10^6/uL Hgb (11.2-15.7) g/dL Hct (36.0-46.0) % MCV (80-95) fL MCH (27.0-33.0) pg MCHC (32.0-36.0) % RDW (11.7-14.6) % Plt Count (130-400) 10^3/uL MPV (8.0-11.0) fL Immature Gran % Neutrophils % Lymphocytes % Monocytes % Eosinophils % Basophils % Nucleated RBC % % Absolute Neutrophils (1.2-6.7) 10^3/uL Absolute Lymphocytes (1.2-3.4) 10^3/uL Absolute Monocytes (0.1-0.8) 10^3/uL Absolute Eosinophils (0.0-0.7) 10^3/uL Absolute Basophils (0.0-0.2) 10^3/uL VBG Lactate (0.6-1.4) mmol/L 0.9 Sodium (136-145) mmol/L 140 Potassium (3.5-5.1) mmol/L 3.5 Chloride (98-107) mmol/L 103 Carbon Dioxide (21.0-32.0) mmol/L 28.6 Anion Gap (3-11) mmol/L 8.4 BUN (7-18) mg/dL 10 Creatinine (0.55-1.02) mg/dL 0.9 Estimated GFR/1.73 m2 (mL/min/1.73m2) >= 60.00 Glucose (74-106) mg/dL 101 Calcium (8.5-10.1) mg/dL 9.4 Magnesium (1.8-2.4) mg/dL 2.2 Total Bilirubin (0.2-1.0) mg/dL 2.7 H AST (15-37) U/L 88 H ALT (14-59) U/L 85 H Alkaline Phosphatase (46-116) U/L 436 H Troponin I (<or=60) ng/L < 50 Total Protein (6.4-8.2) g/dL 7.5 Albumin (3.4-5.0) g/dL 3.3 L Lipase (73-393) U/L 210 Urine Color (Yellow) Yellow Urine Clarity (Clear) Clear Urine pH (5-8) 7.0 Ur Specific [place] (1.005-1.025) <= 1.005 Urine Protein (Negative) mg/dL Negative Urine Ketones (Negative) mg/dL Negative Urine Blood (Negative) Negative Urine Nitrite (Negative) Negative Urine Bilirubin (Negative) Negative Urine Urobilinogen (Up TO 0.2) EU/dL 0.2 Ur Leukocyte Esterase (Negative) Negative Urine Glucose (Negative) mg/dL Negative Range/Units 05/11/21 05/11/21 14:59 18:26 WBC (4.4-10.8) 10^3/uL 8.31 RBC (3.93-5.22) 10^6/uL 4.76 Hgb (11.2-15.7) g/dL 14.7 Hct (36.0-46.0) % 45.6 MCV (80-95) fL 95.8 H MCH (27.0-33.0) pg 30.9 MCHC (32.0-36.0) % 32.2 RDW (11.7-14.6) % 13.1 Plt Count (130-400) 10^3/uL 324 MPV (8.0-11.0) fL 10.1 Immature Gran % 0.1 Neutrophils % 67.1 Lymphocytes % 21.4 Monocytes % 8.3 Eosinophils % 2.3 Basophils % 0.8 Nucleated RBC % % 0 Absolute Neutrophils (1.2-6.7) 10^3/uL 5.57 Absolute Lymphocytes (1.2-3.4) 10^3/uL 1.78 Absolute Monocytes (0.1-0.8) 10^3/uL 0.69 Absolute Eosinophils (0.0-0.7) 10^3/uL 0.19 Absolute Basophils (0.0-0.2) 10^3/uL 0.07 VBG Lactate (0.6-1.4) mmol/L Sodium (136-145) mmol/L Potassium (3.5-5.1) mmol/L Chloride (98-107) mmol/L Carbon Dioxide (21.0-32.0) mmol/L Anion Gap (3-11) mmol/L BUN (7-18) mg/dL Creatinine (0.55-1.02) mg/dL Estimated GFR/1.73 m2 (mL/min/1.73m2) Glucose (74-106) mg/dL Calcium (8.5-10.1) mg/dL Magnesium (1.8-2.4) mg/dL Total Bilirubin (0.2-1.0) mg/dL AST (15-37) U/L ALT (14-59) U/L Alkaline Phosphatase (46-116) U/L Troponin I (<or=60) ng/L < 50 Total Protein (6.4-8.2) g/dL Albumin (3.4-5.0) g/dL Lipase (73-393) U/L Urine Color (Yellow) Urine Clarity (Clear) Urine pH (5-8) Ur Specific [place] (1.005-1.025) Urine Protein (Negative) mg/dL Urine Ketones (Negative) mg/dL Urine Blood (Negative) Urine Nitrite (Negative) Urine Bilirubin (Negative) Urine Urobilinogen (Up TO 0.2) EU/dL Ur Leukocyte Esterase (Negative) Urine Glucose (Negative) mg/dL HPI <Shantal Rey - Last Filed: 05/12/21 09:45> General Mode of arrival: ambulatory. Date/Time Provider Initiated Documentation: 05/11/21 14:15. Limitations to Documentation: no limitations. Information obtained by: patient, RN notes reviewed and old records reviewed. HPI Narrative: 66-year-old female presents to the ER with chief complaint of midepigastric abdominal pain which has been ongoing for the last week. She describes it as throbbing and spasm associated with nausea and loose stools. She also reports a fever approximately a week ago which was 100.4 with chills. That has since resolved. She does have a past medical history of a biliary stent placed at [facility] she reports that this is her stent. She also has a past medical history of diverticulosis asthma fatty liver disease, hyperparathyroidism, kidney stones. She has not taken anything for the pain. Related Data Home Medications Medication Instructions Recorded Confirmed epinephrine 0.3 mg IJ PRN PRN #1 kit 09/28/16 01/29/21 omeprazole 20 mg capsule,delayed 20 mg PO DAILY 01/07/20 01/29/21 release zolpidem 5 mg tablet 5 mg PO QHS PRN 01/07/20 01/29/21 calcium carbonate 500 mg calcium 500 mg PO BID 01/08/20 01/29/21 (1,250 mg) tablet cholecalciferol (vitamin D3) 10 10 mcg PO DAILY 01/08/20 01/29/21 mcg (400 unit) capsule liver plex 1 cap PO DAILY 01/08/20 01/29/21 magnesium 30 mg tablet 30 mg PO DAILY 01/08/20 01/29/21 valacyclovir 1 gram tablet 1,000 mg PO DAILY PRN 08/04/20 01/29/21 dupilumab 300 mg/2 mL subcutaneous 600 mg SUBCUT Q2W ml 09/21/20 01/29/21 pen injector potassium chloride 8 mEq 8 meq PO DAILY 01/05/21 01/29/21 tablet,extended release ciprofloxacin HCl [Cipro] 500 mg PO BID #14 tab 05/11/21 glucosamine sulfate [Glucosamine] 500 mg PO DAILY 05/11/21 05/11/21 milk thistle 150 mg PO DAILY 05/11/21 05/11/21 vitamin E 100 unit PO DAILY 05/11/21 05/11/21 Previous Rx's Medication Instructions Recorded epinephrine 0.3 mg IJ PRN PRN #1 kit 09/28/16 ciprofloxacin HCl [Cipro] 500 mg PO BID #14 tab 05/11/21 Allergies Allergy/AdvReac Type Severity Reaction Status Date / Time No Known Allergies Allergy Unverified 05/11/21 14:31 General Stated Complaint: Abd Prob FITZ: 3 Review of Systems <Shantal Rey - Last Filed: 05/12/21 09:45> All systems reviewed & are unremarkable except as noted in HPI and below Constitutional Constitutional: Reports fever(s) Gastrointestinal Gastrointestinal: Reports as per HPI, Reports abdominal pain, Reports loose stools, Reports nausea and Denies vomiting PFSH <Shantal Rey - Last Filed: 05/12/21 09:45> All Active Problems (Updated 05/11/21 @ 20:35 by Ayde Anne NP) Pneumonia (Acute) Acute epigastric pain (Acute) Biliary stent obstruction (Acute) Cubital tunnel syndrome on left (Acute) Closed fracture of left proximal humerus (Acute 08/03/20) Diverticulosis (Acute) Right rotator cuff tendonitis (Acute) Medical History Abdominal pain Asthma Chronic back pain Chronic insomnia Dyspepsia Fatty liver Genital herpes Hyperparathyroidism Resolved after parathyroidectomy Kidney stone on left side Leg cramps Lipoma of back Nasal polyp Obese Osteoporosis Rosacea Thrombocytosis Pt. denies this Surgical History Colon polyp Inflammatory polyp 01/2020, repeat 10 years Hx of cholecystectomy Hx of parathyroidectomy 2016 Social History Smoking/Tobacco Use Status: Never Smoking risk assessment performed?: Yes Alcohol Intake: current Alcohol Intake frequency: a few times a month Alcohol type: beer and wine Substance use type: does not use Current gender identity: female Do you feel safe at home: Yes Do you feel safe in your relationship?: Yes Exam <Shantal Rey - Last Filed: 05/12/21 09:45> Narrative Exam Narrative: Constitutional: Alert and oriented x3. Appears stated age. Normal body habitus. Head: Normocephalic, no trauma. Eyes: Pupils PERRL, Red reflex noted, EOM's intact. Eyelids symmetrical without lesions, discharge, or swelling. ENT: Bilateral TM's WNL, External ear normal to inspection, no mastoid TTP, swelling, or erythema, Nasal turbinates WNL, no nasal discharge. Normal dentition, Posterior pharynx WNL, no exudate. Chest: RRR, Normal S1, S2, distal pulses intact. Resp: Lungs clear to auscultation bilaterally, no wheezes, rales, or rhonchi. Abdomen: Soft, non-distended, Normoactive bowel sounds all 4 quads. Musculoskeletal: Normal gait, 5/5 strength to all four extremities. Skin: No suspicious rashes or lesions. Capillary refill less than 2 sec. Neurologic: Cranial nerves II-XII intact. Alert and oriented x 3. Motor: No deficits noted. Sensory: Intact bilaterally all 4 extremities. Reflexes: DTR's intact bilaterally.. Hematologic/Lymphatic: No ecchymosis, no lymphadenopathy. Course <Shantal Rey - Last Filed: 05/12/21 09:45> Vital Signs Vital signs: Vital Signs Temperature 36.8 C 05/11/21 14:25 Pulse 58 L 05/11/21 14:25 Respiratory Rate 18 05/11/21 14:25 Blood Pressure 171/70 H 05/11/21 14:25 Pulse Oximetry 98 05/11/21 14:25 Temperature 36.8 C 05/11/21 14:25 Temperature Source Temporal Artery Scan 05/11/21 14:25 Pulse 58 L 05/11/21 14:25 Respiratory Rate 18 05/11/21 14:25 Respiratory Effort Non-Labored 05/11/21 14:34 Blood Pressure 171/70 H 05/11/21 14:25 Blood Pressure Position Sitting 05/11/21 14:25 Pulse Oximetry 98 05/11/21 14:25 Oxygen Delivery Method Room Air 05/11/21 14:25 Oxygen Flow Rate 0 05/11/21 14:25 Pain Level 5 05/11/21 14:34
[2021-05-11 15:08] LABS: Abs Immature Grans 0.01 10^3/uL (0.0-0.06); Absolute Basophil Count 0.07 10^3/uL (0.0-0.2); Absolute Eosinophil Count 0.19 10^3/uL (0.0-0.7); Absolute Lymphocyte Count 1.78 10^3/uL (1.2-3.4); Absolute Monocyte Count 0.69 10^3/uL (0.1-0.8); Absolute Neutrophil Count 5.57 10^3/uL (1.2-6.7); Basophils % 0.8; Eosinophils % 2.3; HCT 45.6 % (36.0-46.0); HGB 14.7 g/dL (11.2-15.7); Immature Grans % 0.1; Lactate 0.9 mmol/L (0.6-1.4); Lymphocytes % 21.4; MCH 30.9 pg (27.0-33.0); MCHC 32.2 % (32.0-36.0); MCV 95.8 fL (80-95); MPV 10.1 fL (8.0-11.0); Monocytes % 8.3; Neutrophils % 67.1; Nucleated RBC 0 %; Platelet Count 324 10^3/uL (130-400); RBC 4.76 10^6/uL (3.93-5.22); RDW 13.1 % (11.7-14.6); RDW-SD 46.9 fL; WBC 8.31 10^3/uL (4.4-10.8)
[2021-05-11] MEDS: Normal Saline Flush 10 ML SYR IVP (15:10)
[2021-05-11] MEDS: Normal Saline 1,000 ML 1000 ML IV ×2 (15:10→20:42)
[2021-05-11] MEDS: Ondansetron 4 MG/2 ML VIAL IVP (15:10)
[2021-05-11 15:12] LABS: Bilirubin Negative (Negative); Blood Negative (Negative); Clarity Clear (Clear); Glucose Negative (Negative); Ketones Negative (Negative); Leukocyte Esterase Negative (Negative); Nitrite Negative (Negative); Specific Gravity <= 1.005 (1.005-1.025); Urobilinogen 0.2 EU/dL (Up TO 0.2)
[2021-05-11 15:35] LABS: ALT 85 U/L (14-59); AST 88 U/L (15-37); Albumin 3.3 g/dL (3.4-5.0); Alkaline Phosphatase 436 U/L (46-116); Anion Gap 8.4 mmol/L (3-11); BUN 10 mg/dL (7-18); Bilirubin, Total 2.7 mg/dL (0.2-1.0); CO2 28.6 mmol/L (21.0-32.0); CREATININE 0.9 mg/dL (0.55-1.02); Calcium 9.4 mg/dL (8.5-10.1); Chloride 103 mmol/L (98-107); Glucose 101 mg/dL (74-106); Lipase 210 U/L (73-393); Magnesium 2.2 mg/dL (1.8-2.4); Potassium 3.5 mmol/L (3.5-5.1); Sodium 140 mmol/L (136-145); Total Protein 7.5 g/dL (6.4-8.2); Troponin I < 50 ng/L (<or=60)
--- NOTE | 2021-05-11 16:50 | DI.CT_ITS ---
Exam(s) CT ABDOMEN PELVIS W EXAM: CT ABDOMEN PELVIS W CLINICAL HISTORY: Hx of biliary stent, Epigastric pain. TECHNIQUE: Imaging Protocol: Axial computed tomography images with coronal and sagittal reformatted images were created and reviewed CONTRAST MATERIAL: Intravenous: Omnipaque 100cc Oral: None COMPARISON: CT CT ABDOMEN PELVIS W from 01/29/2021 FINDINGS: VISUALIZED LUNG BASES: No nodules nor pleural effusions evident. ABDOMEN: There is no ascites. LIVER: There are no focal hepatic lesions evident. There is air in intrahepatic ducts again noted, m ore so than previous. This patient is again noted to have a non silastic CBD stent in place and this stent is not included. The stent extends from the sima hepatis down into the duodenum. Is small a mount of fluid and air in the common hepatic duct adjacent to the stent, of questionable significance . GALLBLADDER/BILIARY: Again noted to be surgically absent. PANCREAS: No evidence of pancreatic mass nor dilatation of the pancreatic duct. SPLEEN: Size is upper normal. No intrasplenic lesions. Splenic and portal veins are patent. ADRENALS: There are no significant adrenal masses. KIDNEYS:No cysts evident. No solid renal masses. No calculi nor hydronephrosis.. ABDOMINAL AORTA: Abdominal aorta is not enlarged. LYMPH NODES:There is no retroperitoneal nor paraaortic adenopathy. ABDOMINAL WALL: Small fat containing umbilical hernia. GI: There is no evidence of bowel obstruction, free air, nor abscess. PELVIS: GI: No evidence of appendicitis.No evidence of sigmoid diverticulitis. LYMPH NODES: There is no intrapelvic nor inguinal adenopathy. REPRODUCTIVE: Abnormal appearing thickened and heterogeneous endometrium. No significant adnexal mas ses and no free fluid cul-de-sac. URINARY BLADDER: Mild uniform thickening of the urinary bladder wall. OSSEOUS: No significant osseous lesions. IMPRESSION: 1. Compared to the prior CT scan of 01/29/2021 there is again noted evidence of prior cholecystectomy and biliary stent in place which appears patent. The amount of pneumobilia as slightly increased wi thin intrahepatic ducts. There is small amount of fluid and air in the upper CBD-common hepatic duct just medial to the stent at this level. This was not previously present. Of questionable significa nce. In addition, the intrahepatic ducts appears slightly more dilated than previous. This may be r elated to intermittent obstruction of CBD stent. 2. Pancreas appears unremarkable and there is no dilatation of the pancreatic duct nor obvious eviden ce of acute pancreatitis. 3. The appearance of the uterus is somewhat heterogeneous, difficult to determine subserosal fibroid versus is abnormal thickened heterogeneous endometrium. Recommend follow-up transvaginal pelvic ultr asound examination for study of the myometrium and endometrium. There are no abnormal adnexal masses nor free fluid in the pelvis. RADIATION DOSE DELIVERED: 1,107.36mGy.cm Total DLP DATA REPOSITORY: All CT scans at this facility are submitted to the National Radiology Data Registry (NRDR) Dose Index Registry (DIR) with the [employer] (ACR). RADIATION OPTIMIZATION: All CT scans at this facility use at least one of these dose optimization te chniques: automated exposure control; mA and/or kV adjustment per patient size (includes targeted exa ms where dose is matched to clinical indication); or iterative reconstruction.
[2021-05-11] MEDS: Omnipaque 350 MG/ML 100 ML BTL IJ (17:27)
--- NOTE | 2021-05-11 18:35 | DI.VRAD_ITS ---
PROCEDURE INFORMATION: Exam: CT Abdomen And Pelvis With Contrast Exam date and time: 05/11/2021 2:45 PM Age: 66 years old Clinical indication: Abdominal pain; Localized; Upper; Patient HX: HX of biliary stent, epigastric pain TECHNIQUE: Imaging protocol: Computed tomography of the abdomen and pelvis with contrast. Total images: 2226 Radiation optimization: All CT scans at this facility use at least one of these dose optimization techniques: automated exposure control; mA and/or kV adjustment per patient size (includes targeted exams where dose is matched to clinical indication); or iterative reconstruction. Contrast material: OMNI-PAQUE 350; Contrast volume: 100 ml; Contrast route: INTRAVENOUS (IV); COMPARISON: CT ABDOMEN PELVIS W 01/29/2021 11:45 PM FINDINGS: Lungs: Patchy scarring or atelectasis in the lung bases. Heart: Heart size normal. Mediastinal space: The visualized distal esophagus is largely contracted without gross abnormality. Liver: Mildly irregular liver contour most notable in the inferior right hepatic lobe, suspect changes of cirrhosis. No mass lesions. Moderate intrahepatic biliary ductal dilatation noted, which is mildly increased from 01/29/2021, with moderate pneumobilia. Gallbladder and bile ducts: Cholecystectomy noted. Biliary stent in place. The stent contains partially aerated content throughout much of its course, particularly distally, and the presence of pneumobilia would favor that the stent is patent. Pancreas: No acute pancreatic abnormalities are evident. No ductal dilatation or signs of pancreatitis. Spleen: Mild splenomegaly measuring 13.5 cm. No focal splenic lesions. Adrenal glands: Normal. No adrenal mass. Kidneys and ureters: No acute abnormalities. No hydronephrosis or hydroureter. No urinary tract stones are identified. There is a low-density circumscribed left renal cortical lesion suggesting renal cyst. No further imaging evaluation is required. Stomach and bowel: The proximal stomach is largely contracted, limiting its assessment. Question rugal fold thickening in the proximal half of the stomach which might be largely due to its contracted status, however cannot exclude changes of gastritis or infiltrative neoplasm, consider endoscopic assessment as clinically indicated. No ulcer crater is identified. The small bowel is nondilated with no gross abnormality. No acute colonic abnormalities. Mild diverticulosis involving the distal colon without evidence of acute diverticulitis. Appendix: The appendix is normal in caliber and demonstrates no evidence of appendicitis. Intraperitoneal space: No free fluid or air. Vasculature: Mild dilatation of the main portal vein measuring 16 mm diameter. No evidence of portal thrombosis. No other vascular abnormalities. Lymph nodes: Enlarged periportal , portacaval, and celiac nodes measuring up to 12.5 mm short axis, nonspecific Urinary bladder: The urinary bladder is largely contracted with wall thickening which may relate to its contracted status. Mild adjacent stranding. Correlate with UA for evidence of cystitis. Reproductive: Unremarkable as visualized. Bones/joints: No acute osseous abnormalities. Soft tissues: Very small fatty umbilical hernia . No evidence of associated bowel herniation or strangulation. IMPRESSION: 1. The biliary stent is unchanged in position and appears to be currently patent, with moderate pneumobilia. There is a moderate amount of partially aerated content within the stent however and there is mildly increased dilatation of the intrahepatic bile ducts compared to 01/29/2021, currently moderate in degree, which might indicate intermittent obstruction. Correlate clinically for evidence of biliary obstruction. 2. There is rugal fold thickening in the proximal stomach. This may relate to its largely contracted status, however an element of gastritis or infiltrative neoplasm could produce this appearance. Recommend endoscopic assessment. 3. Changes of cirrhosis and portal hypertension, with mildly dilated main portal vein and mild splenomegaly. 4. Enlarged periportal, portacaval, and celiac nodes, nonspecific. 5. The urinary bladder is largely contracted with wall thickening which may relate to its contracted status. Mild adjacent stranding. Correlate with UA for evidence of cystitis. Dictated and Authenticated by: Al House MD. Ordering:MICHELL Murguia MD
[2021-05-11 18:50] LABS: Troponin I < 50 ng/L (<or=60)
== END 2021-05-11 21:20 | disposition home or self-care (01) ==
PROVIDERS: Registered Nurse Emergency; Emergency Provider Nurse Practitioner Acute Care; PCP Nurse Practitioner Family
DX: T85.590A Other mechanical complication of bile duct prosthesis, initial encounter (principal); R50.9 Fever, unspecified; R10.13 Epigastric pain
CPT/HCPCS: 36415; 80053; 83690; 93005; 96361; 96374; 96375; 99285; 74177; 81003; 83605; 83735; 84484; 85025; 93010; 99284; J2405; J3490

== ENCOUNTER 2021-08-20 14:29 | Emergency (ER) | payer BC, SELFPAY ==
[2021-08-20 14:42] VITALS: BP 151/74; PULSE 72; RESP 18; TEMP 36.2; O2SAT 92
== END 2021-08-20 15:04 | disposition left before discharge ==
PROVIDERS: PCP Nurse Practitioner Family
DX: R10.9 Unspecified abdominal pain (principal); Z53.29 Procedure and treatment not carried out because of patient's decision for other reasons

== ENCOUNTER 2021-08-24 10:46 | Outpatient (CLI) | payer BC, SELFPAY ==
[2021-08-24 13:05] LABS: CREATININE 0.9 mg/dL (0.55-1.02)
[2021-08-24] MEDS: Omnipaque 350 MG/ML 100 ML BTL IJ (14:05)
[2021-08-24] MEDS: Normal Saline Flush 10 ML SYR IVP (14:08)
--- NOTE | 2021-08-24 14:22 | DI.CT_ITS ---
Exam(s) CT ABDOMEN PELVIS W EXAM: CT ABDOMEN PELVIS W INDICATION: ABD MASS RLQ, R19.03. COMPARISON: CT CT ABDOMEN PELVIS W from 05/11/2021 TECHNIQUE: FINDINGS: CT examination of the abdomen and pelvis was performed with a bolus infusion of 100 cc of Omnipaque 3 50. Images obtained through the lung bases are unremarkable. The liver is unremarkable in appearance. The gallbladder has been surgically removed. There is minimal gas in bile ducts, much reduced from p rior CT of April 2021. No biliary dilatation.. Pancreas appears normal. Spleen is unremarkable in appearance. Adrenals appear normal. The kidneys are unremarkable with no evidence of hydronephrosis, nephrolithiasis, or renal mass.. Ur inary bladder unremarkable. Abdominal aorta is of normal diameter and no major vascular abnormality is seen. No abdominal wall hernia. No abdominal or pelvic adenopathy. Note is made of an area masslike thickening of the lower anterior abdominal wall adjacent to the righ t iliac crest measuring up to about 10-11 cm on coronal imaging and measuring about 3.5 x 6.2 cm on t ransaxial imaging. There is associated increased radiodensity in subcutaneous fat of the right lower quadrant and there is also increased radiodensity in intraperitoneal fat adjacent to this finding at the level of the cecum. Appendix is normal. No gross cecal invasion or wall thickening. There are a couple of small Rebeca cecal lymph nodes which are barely visible and nonspecific. On prior CT of May 11, 2021, there may have been slight thickening of the anterior abdominal wal l at this site, but this is a very subtle finding and the findings are much more prominent on today's examination. [employer] structures appear intact. Appendix is normal. No evidence of diverticulitis or bowel obstruction. IMPRESSION: New area of masslike wall thickening of lower lateral anterior abdominal wall at the level of the cec um. Please correlate regarding prior history of trauma or surgery at this site. In the absence of a ny other explanation, the findings would be worrisome for neoplastic mass such as a soft tissue sarco ma.. RADIATION DOSE DELIVERED: 1,120.18mGy.cm Total DLP 1,120.18mGy.cm Total DLP !Error CTDIvol RADIATION OPTIMIZATION: All CT scans at this facility use at least one of these dose optimization te chniques: automated exposure control; mA and/or kV adjustment per patient size (includes targeted exa ms where dose is matched to clinical indication); or iterative reconstruction.
== END 2021-08-24 11:06 ==
PROVIDERS: PCP Nurse Practitioner Family; Visit Provider Nurse Practitioner Family
DX: R19.03 Right lower quadrant abdominal swelling, mass and lump (principal); R93.5 Abnormal findings on diagnostic imaging of other abdominal regions, including retroperitoneum; Z01.812 Encounter for preprocedural laboratory examination
CPT/HCPCS: 74177; 82565; J3490

== ENCOUNTER 2021-09-30 01:30 | Outpatient (REF) | payer BC, SELFPAY ==
[2021-10-02 10:15] LABS: Campylobacter PCR Negative (Negative); Salmonella PCR Negative (Negative); Shiga Toxin PCR Negative (Negative); Shigella/Enteroinvasive Ecoli Negative (Negative)
== END 2021-09-30 01:31 | disposition home or self-care (01) ==
LOC: NCHCN 01:30
PROVIDERS: PCP Nurse Practitioner Family; Visit Provider Nurse Practitioner Family
DX: R19.7 Diarrhea, unspecified (principal)
CPT/HCPCS: 87505; 87177

== ENCOUNTER 2022-01-31 15:13 | Outpatient (REF) | payer BC, SELFPAY | END 2022-01-31 15:14 | disposition home or self-care (01) | LOC: NCHCN 15:13 | PROVIDERS: PCP Nurse Practitioner Family; Visit Provider Family Medicine | DX: Z51.89 Encounter for other specified aftercare (principal); S31.109D Unspecified open wound of abdominal wall, unspecified quadrant without penetration into peritoneal cavity, subsequent encounter | CPT/HCPCS: 87077; 87070; 87186; 87205 ==

== ENCOUNTER 2022-02-13 14:20 | Outpatient (REF) | payer BC, SELFPAY ==
[2022-02-13 20:13] LABS: Abs Immature Grans 0.02 10^3/uL (0.0-0.06); Absolute Basophil Count 0.07 10^3/uL (0.0-0.2); Absolute Eosinophil Count 0.36 10^3/uL (0.0-0.7); Absolute Lymphocyte Count 2.33 10^3/uL (1.2-3.4); Absolute Monocyte Count 0.47 10^3/uL (0.1-0.8); Absolute Neutrophil Count 3.83 10^3/uL (1.2-6.7); Eosinophils % 5.1; HCT 42.4 % (36.0-46.0); HGB 13.7 g/dL (11.2-15.7); Immature Grans % 0.3; Lymphocytes % 32.9; MCH 29.6 pg (27.0-33.0); MCHC 32.3 % (32.0-36.0); MCV 92 fL (80-95); MPV 10.4 fL (8.0-11.0); Monocytes % 6.6; Neutrophils % 54.1; Platelet Count 247 10^3/uL (130-400); RBC 4.63 10^6/uL (3.93-5.22); RDW 13.2 % (11.7-14.6); RDW-SD 44.4 fL; WBC 7.08 10^3/uL (4.4-10.8)
[2022-02-13 20:33] LABS: Hemoglobin A1C 5.8 % (<5.7)
[2022-02-13 20:52] LABS: ALT 25 U/L (14-59); AST 16 U/L (15-37); Albumin 3.6 g/dL (3.4-5.0); Alkaline Phosphatase 102 U/L (46-116); Anion Gap 10.1 mmol/L (3-11); BUN 11 mg/dL (7-18); Bilirubin, Total 0.3 mg/dL (0.2-1.0); CO2 28.9 mmol/L (21.0-32.0); CREATININE 0.9 mg/dL (0.55-1.02); Calcium 8.7 mg/dL (8.5-10.1); Chloride 104 mmol/L (98-107); Estimated GFR 71.39 (mL/min/1.73m2); Glucose 111 mg/dL (74-106); Magnesium 1.8 mg/dL (1.8-2.4); Potassium 3.9 mmol/L (3.5-5.1); Sodium 143 mmol/L (136-145); Vitamin B12 437 pg/mL (193-986)
[2022-02-14 19:18] LABS: Parathyroid Hormone,Intact 76 pg/mL (19-88)
== END 2022-02-13 14:21 | disposition home or self-care (01) ==
LOC: NCHCN 14:20
PROVIDERS: PCP Nurse Practitioner Family; Visit Provider Nurse Practitioner Family
DX: E66.9 Obesity, unspecified (principal); N20.0 Calculus of kidney; K76.0 Fatty (change of) liver, not elsewhere classified; R79.89 Other specified abnormal findings of blood chemistry; R53.83 Other fatigue; R73.9 Hyperglycemia, unspecified; G25.81 Restless legs syndrome; G47.33 Obstructive sleep apnea (adult) (pediatric)
CPT/HCPCS: 80053; 82607; 83036; 83735; 83970; 85025

== ENCOUNTER → 2022-02-17 00:16 | Outpatient (CLI) | payer BC, SELFPAY ==
--- NOTE | 2022-02-17 14:45 | DI.MAMMO_ITS ---
Exam(s) MAMMO SCREENING EXAM: MAMMO SCREENING CLINICAL HISTORY: SCREENING, Z12.31 TECHNIQUE: Mammograms were interpreted according to the usual protocol including computer analysis w Thinkr CAD system, tomosynthesis and C-view imaging. COMPARISON: 2012 through 2019 FINDINGS: The breasts are composed of mainly fatty density , Breast Density category A. Patient has a history of breast reduction approximately 20 years ago. There are stable coarse, benig n-appearing calcifications in the superior left breast. Biopsy marker is also present. No suspiciou s masses or suspicious microcalcifications are seen. No skin thickening or abnormal axillary lymph nodes are seen. There has been no significant change from prior exams. IMPRESSION: BI-RADS Cat 2 - Benign Findings Yearly screening mammography is recommended. Breast Density - Category A, fatty density. A negative radiographic report should not delay biopsy if a dominant or clinically suspicious mass is present. Up to ten percent of cancers are not identified on mammography. A negative report may reinforce clinical impression. Adenosis and dense breasts may obscure an underlying neoplasm. False positive reports average 6 to 10%. Patient will receive a letter notifying them of these results.
== END ==
PROVIDERS: PCP Nurse Practitioner Family; Visit Provider Nurse Practitioner Family
DX: Z12.31 Encounter for screening mammogram for malignant neoplasm of breast (principal)
CPT/HCPCS: 77063; 77067

== ENCOUNTER 2022-04-13 14:18 | Outpatient (REF) | payer MEDICARE, SELFPAY ==
[2022-04-13 21:20] LABS: Abs Immature Grans 0.01 10^3/uL (0.0-0.06); Absolute Basophil Count 0.09 10^3/uL (0.0-0.2); Absolute Eosinophil Count 0.28 10^3/uL (0.0-0.7); Absolute Neutrophil Count 3.12 10^3/uL (1.2-6.7); Basophils % 1.5; Eosinophils % 4.7; HCT 44.6 % (36.0-46.0); HGB 14.5 g/dL (11.2-15.7); Immature Grans % 0.2; Lymphocytes % 33.9; MCH 29.5 pg (27.0-33.0); MCHC 32.5 % (32.0-36.0); MCV 91 fL (80-95); MPV 10.9 fL (8.0-11.0); Monocytes % 6.8; Neutrophils % 52.9; Platelet Count 255 10^3/uL (130-400); RBC 4.91 10^6/uL (3.93-5.22); RDW 13.1 % (11.7-14.6); RDW-SD 44.3 fL
[2022-04-13 22:02] LABS: ALT 23 U/L (14-59); AST 21 U/L (15-37); Albumin 3.7 g/dL (3.4-5.0); Alkaline Phosphatase 93 U/L (46-116); Anion Gap 7.9 mmol/L (3-11); BUN 14 mg/dL (7-18); Bilirubin, Total 0.5 mg/dL (0.2-1.0); CO2 28.1 mmol/L (21.0-32.0); CREATININE 0.8 mg/dL (0.55-1.02); Chloride 106 mmol/L (98-107); Estimated GFR 82.23 (mL/min/1.73m2); Glucose 101 mg/dL (74-106); Sodium 142 mmol/L (136-145); Total Protein 6.9 g/dL (6.4-8.2)
== END 2022-04-13 14:19 | disposition home or self-care (01) ==
LOC: NCHCN 14:18
PROVIDERS: PCP Nurse Practitioner Family; Visit Provider Nurse Practitioner Family
DX: R19.7 Diarrhea, unspecified (principal)
CPT/HCPCS: 80053; 85025

== ENCOUNTER 2022-04-14 15:57 | Outpatient (REF) | payer MEDICARE, SELFPAY ==
[2022-04-16 11:50] LABS: Campylobacter PCR Negative (Negative); Salmonella PCR Negative (Negative); Shiga Toxin PCR Negative (Negative); Shigella/Enteroinvasive Ecoli Negative (Negative)
== END 2022-04-14 15:58 | disposition home or self-care (01) ==
LOC: NCHCN 15:57
PROVIDERS: PCP Nurse Practitioner Family; Visit Provider Nurse Practitioner Family
DX: R19.7 Diarrhea, unspecified (principal)
CPT/HCPCS: 87505

== ENCOUNTER 2022-04-26 09:52 | Outpatient (REF) | payer MEDICARE, SELFPAY ==
[2022-04-28 11:46] LABS: C Diff PCR Negative (Negative)
== END 2022-04-26 09:53 | disposition home or self-care (01) ==
LOC: NCHCN 09:52
PROVIDERS: PCP Nurse Practitioner Family; Visit Provider Nurse Practitioner Family
DX: R19.7 Diarrhea, unspecified (principal)
CPT/HCPCS: 87493

== ENCOUNTER 2022-06-12 11:47 | Outpatient (REF) | payer MEDICARE, SELFPAY ==
--- NOTE | 2022-06-12 10:55 | PAPFT_PTH ---
PATIENT: Alexa Bess LOC: [facility]#:[id number] AGE/SX: 67/F ROOM: RE06/12/[address]: Holley Faith : 1955 BED: DIS: 06/12/2022 SPEC #: [id number] RECD: 06/12/22 17:20 STATUS: ALEXANDRA REAlisa #: [id number] CALIN: 06/12/22 10:[address]: Holley Faith DEPT: [facility] Cytology RECD BY: Michelle Burr Tissues: 1 - CX/ENDOCX FOR PAP SMEARS Procedures: PAP THIN PREP/UVM Screening HPV DNA PROBE Comments: [id number]
== END 2022-06-12 11:48 | disposition home or self-care (01) ==
LOC: NCHCN 11:47
PROVIDERS: PCP Nurse Practitioner Family; Visit Provider Nurse Practitioner Family
DX: Z11.51 Encounter for screening for human papillomavirus (HPV); Z01.419 Encounter for gynecological examination (general) (routine) without abnormal findings
CPT/HCPCS: 88142; 87624

== ENCOUNTER 2022-06-14 01:23 | Outpatient (CLI) | payer MEDICARE, SELFPAY ==
--- NOTE | 2022-06-14 08:30 | DI.US_ITS ---
Exam(s) US ABDOMEN LIMITED EXAM: US ABDOMEN LIMITED CLINICAL HISTORY: ABNL LIVER FUNCTION TESTS, R79.89, HCC SCREENING TECHNIQUE: Ultrasound abdomen performed using standard protocol. COMPARISON: CT CT ABDOMEN PELVIS W from 08/24/2021 FINDINGS: There is no ascites evident. LIVER: There are no hepatic lesions evident nor dilatation of intrahepatic ducts. GALLBLADDER/BILIARY: Gallbladder surgically absent. The common hepatic duct ismildly dilated, measuring 8mm at the level of sima hepatis. Probably rela sterling post cholecystectomy status. PANCREAS: There is no evidence of pancreatic mass nor dilatation of the pancreatic duct. RIGHT KIDNEY:No evidence of solid mass, calculus, nor hydronephrosis. No cortical cysts evident. IMPRESSION: 1. Gallbladder is surgically absent. Slightly prominent CBD diameter which is probably related to p ost cholecystectomy status. 2. No other significant ultrasound findings in the right upper quadrant. 3. Please note that CT scan of July 2021 revealed an abnormal mass density in the lower lateral rig ht anterior abdominal wall. That area was not included in the field of view of this right upper quad rant ultrasound examination. DATA REPOSITORY:
== END 2022-06-14 01:43 ==
PROVIDERS: PCP Nurse Practitioner Family; Visit Provider Emergency Medicine
DX: R79.89 Other specified abnormal findings of blood chemistry (principal)
CPT/HCPCS: 76705

== ENCOUNTER 2022-10-02 18:38 | Outpatient (REF) | payer MEDICARE, SELFPAY ==
[2022-10-02 21:36] LABS: Abs Immature Grans 0.02 10^3/uL (0.0-0.06); Absolute Basophil Count 0.06 10^3/uL (0.0-0.2); Absolute Eosinophil Count 0.31 10^3/uL (0.0-0.7); Absolute Lymphocyte Count 2.38 10^3/uL (1.2-3.4); Absolute Monocyte Count 0.45 10^3/uL (0.1-0.8); Absolute Neutrophil Count 3.84 10^3/uL (1.2-6.7); Basophils % 0.8; Eosinophils % 4.4; HCT 45.9 % (36.0-46.0); Immature Grans % 0.3; Lymphocytes % 33.7; MCH 29.6 pg (27.0-33.0); MCHC 32.7 % (32.0-36.0); MCV 91 fL (80-95); MPV 10.7 fL (8.0-11.0); Monocytes % 6.4; Neutrophils % 54.4; Platelet Count 292 10^3/uL (130-400); RBC 5.07 10^6/uL (3.93-5.22); RDW 13.2 % (11.7-14.6); RDW-SD 43.8 fL; WBC 7.06 10^3/uL (4.4-10.8)
[2022-10-02 22:10] LABS: ALT 26 U/L (14-59); AST 16 U/L (15-37); Albumin 3.9 g/dL (3.4-5.0); Alkaline Phosphatase 93 U/L (46-116); Anion Gap 6.3 mmol/L (3-11); BUN 15 mg/dL (7-18); Bilirubin, Total 0.4 mg/dL (0.2-1.0); CO2 32.7 mmol/L (21.0-32.0); Calcium 9.3 mg/dL (8.5-10.1); Chloride 104 mmol/L (98-107); Estimated GFR 62.52 (mL/min/1.73m2); Glucose 80 mg/dL (74-106); Magnesium 1.9 mg/dL (1.8-2.4); Potassium 4.2 mmol/L (3.5-5.1); Sodium 143 mmol/L (136-145); Total Protein 7.2 g/dL (6.4-8.2); Vitamin B12 651 pg/mL (193-986)
[2022-10-02 22:18] LABS: Hemoglobin A1C 5.8 % (<5.7)
[2022-10-02 22:50] LABS: Vitamin D 25 Total 29.8 ng/mL (30-100)
[2022-10-04 10:29] LABS: Parathyroid Hormone,Intact 53 pg/mL (19-88)
== END 2022-10-02 18:39 | disposition home or self-care (01) ==
LOC: NCHCN 18:38
PROVIDERS: PCP Nurse Practitioner Family; Visit Provider Nurse Practitioner Family
DX: R73.03 Prediabetes (principal); E21.0 Primary hyperparathyroidism; R53.83 Other fatigue; R79.89 Other specified abnormal findings of blood chemistry; M81.0 Age-related osteoporosis without current pathological fracture; Z86.39 Personal history of other endocrine, nutritional and metabolic disease
CPT/HCPCS: 80053; 82306; 82607; 83036; 83735; 83970; 85025

== ENCOUNTER 2022-11-02 01:19 | Outpatient (CLI) | payer MEDICARE, SELFPAY ==
--- NOTE | 2022-11-02 | DI.DEXA_ITS ---
Exam(s) XR DEXA BONE DENSITY W/WO GORGE EXAM: XR DEXA BONE DENSITY W/WO GORGE CLINICAL HISTORY: OSTEOPOROSIS M81.0 TECHNIQUE: COMPARISON: CR XR DEXA BONE DENSITY W/WO GORGE from 12/24/2019 FINDINGS: Lateral Spine Image: Unremarkable. No compression deformities identified. Left hip: Total T-Score: -1.4. This compares to -1.8 on the prior examination. Total Z-Score: -0.2 T- and Z-scores: Findings are consistent with osteopenia. There is osteoporosis in the femoral neck with a T-score of -2.7. Lumbar Spine: Total T-Score: -2.2. This compares to -2.3 on the prior examination. Total Z-Score: -0.4 T- and Z-scores: Findings consistent with osteopenia. There is osteoporosis in the L3 vertebral body with a T-score of -2.5. IMPRESSION: Osteoporosis seen in the lumbar spine and left hip.
== END 2022-11-02 01:39 ==
LOC: DI 01:20
PROVIDERS: PCP Nurse Practitioner Family; Visit Provider Nurse Practitioner Family
DX: M81.0 Age-related osteoporosis without current pathological fracture (principal); Z13.820 Encounter for screening for osteoporosis; M81.8 Other osteoporosis without current pathological fracture
CPT/HCPCS: 77080

== ENCOUNTER 2022-12-29 13:05 | Outpatient (REF) | payer MEDICARE, SELFPAY | END 2022-12-29 13:06 | disposition home or self-care (01) | LOC: NCHCN 13:05 | PROVIDERS: PCP Nurse Practitioner Family; Visit Provider Family Medicine | DX: R35.0 Frequency of micturition (principal) | CPT/HCPCS: 87086 ==

== ENCOUNTER → 2023-02-27 01:00 | Outpatient (CLI) | payer MEDICARE, SELFPAY ==
--- NOTE | 2023-02-27 | DI.MAMMO_ITS ---
Exam(s) MAMMO SCREENING EXAM: MAMMO SCREENING CLINICAL HISTORY: SCREENING,Z12.3,H/O BREAST REDUCTION TECHNIQUE: Mammograms were interpreted according to the usual protocol including computer analysis w [employer] CAD system, tomosynthesis and C-view imaging. COMPARISON: 2015 through 2021 FINDINGS: The breasts are composed of mainly fatty density , Breast Density category A. No suspicious masses or suspicious microcalcifications are seen. Biopsy marker clip and peripherally calcified oil cysts again noted in the left breast. Left breast scarring again noted. No skin thickening or abnormal axillary lymph nodes are seen. There has been no significant change from prior exams. IMPRESSION: BI-RADS Cat 2 - Benign Findings Yearly screening mammography is recommended. Breast Density - Category A, fatty density. A negative radiographic report should not delay biopsy if a dominant or clinically suspicious mass is present. Up to ten percent of cancers are not identified on mammography. A negative report may reinforce clinical impression. Adenosis and dense breasts may obscure an underlying neoplasm. False positive reports average 6 to 10%. Patient will receive a letter notifying them of these results.
== END ==
PROVIDERS: PCP Nurse Practitioner Family; Visit Provider Nurse Practitioner Family
DX: Z12.31 Encounter for screening mammogram for malignant neoplasm of breast (principal)
CPT/HCPCS: 77063; 77067

== ENCOUNTER 2023-10-08 14:16 | Outpatient (REF) | payer MEDICARE, SELFPAY ==
[2023-10-08 16:21] LABS: ALT 27 U/L (14-59); AST 15 U/L (15-37); Albumin 3.9 g/dL (3.4-5.0); Alkaline Phosphatase 88 U/L (46-116); Anion Gap 9.8 mmol/L (3-11); BUN 14 mg/dL (7-18); Bilirubin, Total 0.7 mg/dL (0.2-1.0); CO2 28.2 mmol/L (21.0-32.0); CREATININE 1.1 mg/dL (0.55-1.02); Calcium 9.3 mg/dL (8.5-10.1); Chloride 106 mmol/L (98-107); Estimated GFR 55.42 (mL/min/1.73m2); Glucose 107 mg/dL (74-106); Magnesium 1.8 mg/dL (1.8-2.4); Potassium 4.5 mmol/L (3.5-5.1); Sodium 144 mmol/L (136-145); Total Protein 6.9 g/dL (6.4-8.2); Vitamin B12 701 pg/mL (193-986)
[2023-10-08 16:46] LABS: Hemoglobin A1C 5.8 % (<5.7)
[2023-10-08 17:04] LABS: Vitamin D 25 Total 45.8 ng/mL (30-100)
== END 2023-10-08 14:17 | disposition home or self-care (01) ==
LOC: NCHCN 14:16
PROVIDERS: PCP Nurse Practitioner Family; Visit Provider Nurse Practitioner Family
DX: Z00.00 Encounter for general adult medical examination without abnormal findings (principal); R73.03 Prediabetes; K76.0 Fatty (change of) liver, not elsewhere classified
CPT/HCPCS: 80053; 82306; 82607; 83036; 83735

== ENCOUNTER → 2023-12-04 10:48 | Outpatient (BNVA) | payer MEDICARE, SELFPAY | PROVIDERS: PCP Nurse Practitioner Family; Referring Provider Nurse Practitioner Family; Visit Provider Physical Therapy Assistant | DX: Z12.11 Encounter for screening for malignant neoplasm of colon (principal); R19.5 Other fecal abnormalities ==

== ENCOUNTER 2023-12-14 06:07 | Day surgery (SDC) | payer MEDICARE, SELFPAY ==
--- NOTE | 2023-12-13 20:39 | W.PM.DSUDISC ---
Date of service: 12/14/23 Time of Service: 08:04 Discharge Plan Disposition Patient Disposition: Home Condition: Good Discharge Details Reason For Visit: diagnostic colonoscopy Attending Provider: Carlos Roth Primary Care Provider: Holley Faith Home Meds and New Rx's Prescriptions: Continued cholecalciferol (vitamin D3) 10 mcg (400 unit) capsule 10 mcg PO DAILY magnesium 30 mg tablet 30 mg PO DAILY liver plex 1 cap PO DAILY potassium chloride 8 mEq tablet extended release 8 meq PO DAILY oxybutynin chloride 2.5 mg tablet 2.5 mg PO DAILY omeprazole 20 mg capsule,delayed release(DR/EC) 20 mg PO DAILY valacyclovir [Valtrex] 1 gram tablet 1,000 mg PO DAILY PRN calcium carbonate [Calcium 500] 500 mg calcium (1,250 mg) tablet 1,500 mg PO BID folic acid 400 mcg tablet 0.4 mg PO DAILY albuterol sulfate 90 mcg/actuation HFA aerosol inhaler 2 puff inhalation Q6H PRN bupropion HCl 150 mg tablet extended release 24 hr 150 mg PO QAM Dupixent Pen 300 mg/2 mL pen injector 300 mg subcut Q2W mometasone [Nasonex 24hr Allergy] 50 mcg/actuation spray,non-aerosol 2 spray intranasal DAILY Rx Instructions: administer into each nostril epinephrine 0.3 MG/SYR auto-injector 0.3 mg IJ PRN PRN (Reason: Anaphylaxis) Qty: 1 0RF vitamin E 100 unit Tablet 100 unit PO DAILY Discontinued bisacodyl 5 mg tablet,delayed release (DR/EC) 5 mg PO ONCE Qty: 4 0RF Rx Instructions: Per Colonoscopy bowel prep instructions polyethylene glycol 3350 17 gram/dose powder 238 g PO ONCE Qty: 238 0RF Rx Instructions: For Colonoscopy bowel prep, as directed by office Discharge Instructions Instructions: Colon polyps Additional Instructions: Alexa, we were able to complete your colonoscopy today just as we discussed. I did find and remove 4 polyps today. They are all relatively small, and do not appear worrisome to the naked eye. They will be sent out for testing and once we know the nature of the polyps, that will inform the timing of your next colonoscopy. The office will be in touch once those results are available. If you need anything or have any questions, please don't be afraid to call. 1. If tolerated, consume a soft, low fiber diet for 1-2 days. 2[address] Do not drive, drink alcohol, operate machinery, make critical decisions, or do activities that require coordination or balance for 24 hours. 3. Because air was put into your colon during the procedure, expelling air from your rectum (passing gas or farting) is normal. 4. You may not have a bowel movement for 1-3 days because of the colonoscopy prep. This is normal. 5. Go directly to the emergency room if you notice any of the following: Develop chills (warm to touch), or if you have a thermometer and your temperature is above 101 Difficulty breathing or difficultly swallowing Persistent vomiting Severe abdominal pain, other than gas cramps Severe chest pain Black, tarry stools Any bleeding ? exceeding one tablespoon 6. Call your physician if the site where your intravenous was started becomes red, swollen, painful, and warm to touch. 7. Your physician has reviewed your pre-procedure medications. Please continue to take those medications as previously ordered. You will be given specific information/education regarding any changes to your medications before leaving. Stand Alone Forms: Anesthesia Discharge InstBright, Guadalupe Adrian (DSU) Activity:: Activity as Tolerated Diet:: As Tolerated Discharge Orders Discharge Orders: Discharge Order (Routine); Ordered 12/13/23 Ordered By: Carlos Roth DS: Diagnosis Discharge Diagnosis (1) Encounter for screening colonoscopy: Status: Acute Asessment and Plan: Follow up on polypectomy results
--- NOTE | 2023-12-13 20:40 | W.COLOREPORT ---
Date of service: 12/14/23 Time of Service: 08:08 Colonoscopy Report Date of procedure: 12/14/23 Pre-op diagnosis general: Positive cologuard test Procedure: Colonoscopy with polypectomy Surgeon: Carlos Roth Anesthesia Type: General:No Airway Estimated blood loss (mL): 10 Pathology: other (0.5 cm polyp at 35 cm, 0.25 polyp at 30 cm, 0.25 and 0.5 cm polyps at 20 cm) Complications: None Disposition: same day Indications: Alexa is a 68 year old woman with a history of inflammatory polyps who recently had a positive cologuard test. She needs a follow up screening colonoscopy Prep: Miralax/Dulcolax Procedure Start Time: 07:33 Procedure End Time: 07:57 Retraction Time: 14 Findings: Diverticulosis, 0.5 cm polyp at 35 cm, 0.25 polyp at 30 cm, 0.25 and 0.5 cm polyps at 20 cm Procedure Description: After the induction of monitored anesthetic care, and with the patient in left lateral decubitus position, I began by performing an external anorectal exam.? Perineum and skin were normal, as was the anal verge.? There was no evidence of external hemorrhoids.? Next, I performed a digital rectal exam.? I did not appreciate any abnormal findings.? Next, I advanced a colonoscope into the rectal vault.? I performed retroflexion.? This appeared normal.? Using insufflation, I then advanced the colonoscope beyond the rectal folds and into the sigmoid colon before advancing towards the cecum.?There are some occasional diverticuli.? The scope was noted to be in the cecum by identification of the ileocecal valve and appendiceal orifice.? I then began withdrawing the colonoscope using repeated irrigation as necessary for full evaluation of the colonic mucosa. ?Once the scope was withdrawn to the level of the rectum, great care was taken to examine portions of the rectal folds.?Around 35 cm from the anal verge I identified a 0.5 cm polyp. ?It appeared flat in character. ?I was able to remove this with a cold forcept polypectomy. ?I examined the site, and there was minimal bleeding. ?Similarly, I found a 0.25 cm flat polyp at 30 cm, and 2 polyps at 20, one was flat and 0.25 cm, the other was more pedunculated and 0.5 cm. All of these were removed with cold forcepts. Once this was completed, I continued to withdraw the scope and examine the remainder of the colonic mucosa. Finally, the scope was withdrawn and the patient was brought to the same-day surgery recovery unit as the anesthetic wore off. ?The findings and instructions were shared with the patient prior to discharge. [place] Bowel Prep [place] Bowel Prep Right Colon: 3 Left Colon: 3 Transverse Colon: 3 Total Score: 9
[2023-12-14 06:15] VITALS: BP 155/60; PULSE 57; RESP 16; TEMP 36.3; O2SAT 96
[2023-12-14] MEDS: Lactated Ringers 1,000 ML 80 ML IV (07:06)
--- NOTE | 2023-12-14 07:15 | W.ANESPRE ---
General Info Date of Service Date Performed: 12/14/23 Height: 5 ft 6 in Weight: 95.6 kg Body Mass Index (BMI): 34.0 Surgical Procedure: Operation Date: 12/14/23 07:35 Proposed Procedure Side Surgeon you Roth MD Meds Allergies and Home Medications Allergies Allergy/AdvReac Type Severity Reaction Status Date / Time No Known Allergies Allergy Verified 12/14/23 06:28 Home Medication ?Medication ?Instructions ?Recorded epinephrine 0.3 mg/0.3 mL 0.3 mg (0.3 mL) IJ PRN PRN 09/28/16 injection, auto-injector Anaphylaxis ##1 omeprazole 20 mg capsule,delayed 20 mg PO DAILY 01/07/20 release cholecalciferol (vitamin D3) 10 10 mcg PO DAILY 01/08/20 mcg (400 unit) capsule liver plex 1 cap PO DAILY 01/08/20 magnesium 30 mg tablet 30 mg PO DAILY 01/08/20 valacyclovir 1 gram tablet 1,000 mg PO DAILY PRN 08/04/20 (Valtrex) potassium chloride 8 mEq 8 meq PO DAILY 01/05/21 tablet,extended release vitamin E 100 unit tablet 100 unit PO DAILY 05/11/21 albuterol sulfate 90 mcg/actuation 2 puff inhalation Q6H PRN 11/28/23 aerosol inhaler bupropion HCl 150 mg 24 hr tablet, 150 mg PO QAM 11/28/23 extended release calcium carbonate (Calcium 500) 1,500 mg PO BID 11/28/23 dupilumab 300 mg/2 mL subcutaneous 300 mg subcut Q2W 11/28/23 pen injector (Dupixent) folic acid 400 mcg tablet 0.4 mg PO DAILY 11/28/23 mometasone 50 mcg/actuation nasal 2 spray intranasal DAILY 11/28/23 spray (Nasonex 24hr Allergy) oxybutynin chloride 2.5 mg tablet 2.5 mg PO DAILY 12/04/23 Current Visit Medications: Current Medications Generic Name Dose Route Start Last Admin Trade Name Freq PRN Reason Stop Dose Admin Ringer's Solution 1,000 mls @ 80 mls/hr 12/14/23 07:15 12/14/23 07:06 IV 01/13/24 07:14 80 mls/hr INFUSION ERIBERTO Administration Ondansetron HCl 4 mg 12/13/23 20:42 Ondansetron 4 Mg/2 Ml Vial IVP 01/12/24 20:41 Q4H PRN PRN Nausea / Vomiting PFSH Active Problems Active Problems: Problem Status Onset Code Encounter for screening colonoscopy Acute Z12.11 Encounter for diagnostic colonoscopy due to change in bowel habits Acute R19.4 Positive fecal immunochemical test Acute R19.5 Biliary stent obstruction Acute T85.590A Acute epigastric pain Acute R10.13 Pneumonia Acute J18.9 Cubital tunnel syndrome on left Acute G56.22 Closed fracture of left proximal humerus Acute 08/03/20 S42.202A Diverticulosis Acute K57.90 Right rotator cuff tendonitis Acute M75.81 Medical History Medical History Abdominal pain Asthma Chronic back pain Chronic insomnia Dyspepsia Fatty liver Genital herpes Hyperparathyroidism Resolved after parathyroidectomy Kidney stone on left side Leg cramps Lipoma of back Nasal polyp Obese Osteoporosis Rosacea Thrombocytosis Pt. denies this Surgical History Surgical History Colon polyp Inflammatory polyp 01/2020, repeat 10 years Hx of cholecystectomy Hx of parathyroidectomy 2017 Tobacco Smoking/Tobacco Use Status: Never Alcohol Alcohol Intake: current Alcohol intake frequency: a few times a month Alcohol type: beer and wine Substance Use Substance use type: does not use Vital Signs and Lab Results Vital Signs Most Recent Vital Signs in EMR: Most Recent Vital Signs Temp Pulse Resp BP Pulse Ox 36.3 C L 57 L 16 155/60 H 96 12/14/23 06:15 12/14/23 06:15 12/14/23 06:15 12/14/23 06:15 12/14/23 06:15 Lab Results Blood Type / Crossmatch: No Data to Display Complete Blood Count: No Data to Display Complete Metabolic Panel: No Data to Display Liver Function Panel: No Data to Display Coagulation Panel: No Data to Display Cardiac Panel: No Data to Display Arterial Blood Gas: No Data to Display Venous Blood Gas: No Data to Display Pancreas Panel: No Data to Display Thyroid Panel: No Data to Display Infectious Disease: No Data to Display Blood Cultures: No Data to Display Toxicology Panel: No Data to Display Imaging and Studies Imaging and Studies Study information below may be from another EMR and interpreted by another provider. Please see original notes in EMR for more complete details. EKG Summary: Conclusion Sinus bradycardia...rate< 60 Inferior infarct, age indeterminate...Q>35mS, T neg, II III aVF no STEMI, non-diagnostic EKG I have reviewed and interpreted ECG and agree with software generated interpretation. 05/11/21 Anesthesia Assessment and Plan Anesthesia History Personal History: No History of Anesthesia Complications Family History: No Family History of Anesthesia Complications Exercise Tolerance Exercise Tolerance: Metabolic Equivalents>4 Pertinent Negatives Pertinent Negatives: No Symptoms of GERD, No Major Cardiovascular Symptoms or Complaints and No Major Pulmonary Symptoms or Complaints Cardiac & Pulmonary Exam Cardiac Exam: Normal S1/S2 Heart Sounds Pulmonary Exam: Clear Bilateral Breath Sounds Implantable Cardiac Device Does patient have a Pacemaker or an ICD?: No Airway Exam Known Difficult Airway: No Mallampati Class: 2 Mouth Opening: Normal (> 3cm) Thyromental Distance: Greater than 3 cm Neck Range of Motion: Full ROM Neck Circumference: Thick Teeth Condition: Normal Dentition ASA Classification ASA Score: ASA 2 Emergency Case?: No NPO Status NPO Status: NPO Clears >2 hours, Solids >8 hours Anesthesia Plan Resuscitation Status: Full Code Anesthesia Technique: General Anesthesia Airway Planned: Natural Airway Monitors Used: Standard Monitors Preoperative Comments:: 68 y/o female with history of asthma, genital herpes, obesity, dyspepsia and presents for colonoscopy screening pre-op. Her last screening was in 2019, which was remarkable for an inflammatory polyp.
[2023-12-14 07:26] VITALS: BMI 34.0
--- NOTE | 2023-12-14 07:50 | BOWEL_PTH ---
PATIENT: Alexa Bess LOC: [facility] U#:[id number] AGE/SX: 68/F ROOM: RE12/14/[address]: Carlos Roth MD : 1955 BED: DIS: 12/14/2023 SPEC #: [id number] RECD: 12/14/23 12:50 STATUS: ALEXANDRA REQ #: [id number] CALIN: 12/14/23 07:[address]: Carlos Roth DEPT: Surgical Specimen RECD BY: Michelle Burr ENTERED: 12/14/23 12:51 SP TYPE: Bowel OTHR DR: Holley Faith Tissues: 1 - BIOPSY BOWEL 2 - BIOPSY BOWEL 3 - BIOPSY BOWEL Procedures: GROSS AND MICRO LEVEL 4 Comments: [id number]
[2023-12-14 08:00] VITALS: BP 130/66; PULSE 54; RESP 16; TEMP 36.4; O2SAT 96
--- NOTE | 2023-12-14 08:11 | W.ANESPOSTOP ---
Postoperative Evaluation Date, Time and Location Date Performed: 12/14/23 Time Performed: 08:11 Patient Location: Day Surgery Unit Vital Signs Most Recent Imported Vital Signs: Most Recent Vital Signs Temp Pulse Resp BP Pulse Ox 36.4 C L 54 L 16 130/66 96 12/14/23 08:00 12/14/23 08:00 12/14/23 08:00 12/14/23 08:00 12/14/23 08:00 Pain Score Most Recent Pain Score: Most Recent Pain Score Pain Level 0 12/14/23 08:00 Assessment Mental Status: Awake (Alert & Oriented to Patient Baseline) Airway and Respiratory Function: Patent airway with normal (patient baseline) respiratory exam Cardiovascular Function: Hemodynamically Stable Hydration Status: Adequately Hydrated Nausea & Vomiting: No Nausea or Vomiting Pain: Pt. Denies Any Pain Peripheral Nerve Block: Patient did not receive a nerve block
[2023-12-14 08:30] VITALS: BP 150/71; PULSE 60; RESP 16; TEMP 36.3; O2SAT 98
== END 2023-12-14 08:55 | disposition home or self-care (01) ==
LOC: SUR 06:07
PROVIDERS: PCP Nurse Practitioner Family; Visit Provider Surgery
PROC: 0DJD8ZZ Inspection of Lower Intestinal Tract, Via Natural or Artificial Opening Endoscopic (ICD-10-PCS; CPT 45378; principal; 2023-12-14 07:30)
DX: Z12.11 Encounter for screening for malignant neoplasm of colon (principal); D12.5 Benign neoplasm of sigmoid colon
CPT/HCPCS: 45380; 88305; J2704

== ENCOUNTER 2024-06-18 00:45 | Observation (INO) | payer MEDICARE, SELFPAY ==
[2024-06-18] VITALS (63 sets, daily range): BP systolic 102–198; BP diastolic 46–110; PULSE 63–155; RESP 12–24; TEMP 36.2–37.6; O2SAT 91–99
--- NOTE | 2024-06-18 00:45 | RT.EKG_ITS ---
APPROVED REPORT Exam: Resting ECG Reason for Exam: Patient Location: E HR:130 bpm ECG Measurements Heart Rate 130 AXIS NH [id number] P [id number] QRSd 91 QRS -37 QT 299 T 65 QTc 440 Conclusion Atrial fibrillation...? atrial activity Left axis deviation...QRS axis (-30,-90) Nonspecific repol abnormality, lateral leads...ST dep, T neg, I aVL V5 V6 I have reviewed and interpreted ECG and agree with software generated interpretation.
--- NOTE | 2024-06-18 00:47 | W.ED.GENAD ---
Discharge Plan Disposition Patient Disposition: Admit to [facility] Condition: Good Discharge Details Clinical Impression: New onset atrial fibrillation Primary Care Provider: Holley Faith ED Provider: Saravanan Orozco [place] Meds and New Rx's Prescriptions: No Action cholecalciferol (vitamin D3) 10 mcg (400 unit) capsule 10 mcg PO DAILY magnesium 30 mg tablet 30 mg PO DAILY liver plex 1 cap PO DAILY potassium chloride 8 mEq tablet extended release 8 meq PO DAILY omeprazole 20 mg capsule,delayed release(DR/EC) 20 mg PO DAILY valacyclovir [Valtrex] 1 gram tablet 1,000 mg PO DAILY PRN calcium carbonate [Calcium 500] 500 mg calcium (1,250 mg) tablet 1,500 mg PO BID folic acid 400 mcg tablet 0.4 mg PO DAILY albuterol sulfate 90 mcg/actuation HFA aerosol inhaler 2 puff inhalation Q6H PRN bupropion HCl 150 mg tablet extended release 24 hr 150 mg PO QAM Dupixent Pen 300 mg/2 mL pen injector 300 mg subcut Q2W mometasone [Nasonex 24hr Allergy] 50 mcg/actuation spray,non-aerosol 2 spray intranasal DAILY Rx Instructions: administer into each nostril epinephrine 0.3 MG/SYR auto-injector 0.3 mg IJ PRN PRN (Reason: Anaphylaxis) Qty: 1 0RF vitamin E 100 unit Tablet 100 unit PO DAILY oxybutynin chloride 10 mg tablet extended release 24hr 10 mg PO DAILY Patient Comments: TAKE ONE TABLET BY MOUTH EVERY DAY HPI General Mode of arrival: ambulatory. Date/Time Provider Initiated Documentation: 06/18/24 00:47. Limitations to Documentation: no limitations. Information obtained by: patient and RN notes reviewed. HPI Narrative: Patient presents to ED with complaint of palpitations and heart racing. Patient has never had this previously. Tonight just after lying down to go to bed she developed palpitation and heart racing. Had a little bit of central discomfort, nothing at this time. Maybe felt a little short of breath. Denies any lightheadedness or syncope. Denies any recent illness and has not had any fever, cough, vomiting, diarrhea, abdominal pain. Denies any leg pain or leg swelling. Did use her 's Apple Watch which suggested she was in atrial fibrillation prompting her to come to the ED. Related Data Home Medications ?Medication ?Instructions ?Recorded ?Confirmed epinephrine 0.3 mg/0.3 mL 0.3 mg (0.3 mL) IJ PRN PRN 09/28/16 06/18/24 injection, auto-injector Anaphylaxis ##1 omeprazole 20 mg capsule,delayed 20 mg PO DAILY 01/07/20 06/18/24 release cholecalciferol (vitamin D3) 10 10 mcg PO DAILY 01/08/20 06/18/24 mcg (400 unit) capsule liver plex 1 cap PO DAILY 01/08/20 06/18/24 magnesium 30 mg tablet 30 mg PO DAILY 01/08/20 06/18/24 valacyclovir 1 gram tablet 1,000 mg PO DAILY PRN 08/04/20 06/18/24 (Valtrex) potassium chloride 8 mEq 8 meq PO DAILY 01/05/21 06/18/24 tablet,extended release vitamin E 100 unit tablet 100 unit PO DAILY 05/11/21 06/18/24 albuterol sulfate 90 mcg/actuation 2 puff inhalation Q6H PRN 11/28/23 06/18/24 aerosol inhaler bupropion HCl 150 mg 24 hr tablet, 150 mg PO QAM 11/28/23 06/18/24 extended release calcium carbonate (Calcium 500) 1,500 mg PO BID 11/28/23 06/18/24 dupilumab 300 mg/2 mL subcutaneous 300 mg subcut Q2W 11/28/23 06/18/24 pen injector (Dupixent) folic acid 400 mcg tablet 0.4 mg PO DAILY 11/28/23 06/18/24 mometasone 50 mcg/actuation nasal 2 spray intranasal DAILY 11/28/23 06/18/24 spray (Nasonex 24hr Allergy) oxybutynin chloride 10 mg 10 mg PO DAILY 06/18/24 06/18/24 tablet,extended release 24 hr Previous Rx's ?Medication ?Instructions ?Recorded epinephrine 0.3 mg/0.3 mL 0.3 mg (0.3 mL) IJ PRN PRN 09/28/16 injection, auto-injector Anaphylaxis ##1 Allergies Allergy/AdvReac Type Severity Reaction Status Date / Time No Known Allergies Allergy Verified 12/17/23 11:44 General FITZ: 3 Review of Systems Narrative: Per HPI Exam Narrative Exam Narrative: Const: WDWN female in NAD. VS per triage. HEENT: NC/AT. Normal facial exam. Neck: Supple. Trachea midline. Lungs: Normal respiratory effort. Lungs are clear. Cor: Irr/Irr, tachy, no murmur appreciated. Good radial pulses. GI: Soft/ND/NT. Neuro: A+O x 3. Normal speech, mentation, gait. Cranial nerves II - XII grossly intact. No gross motor or sensory deficit. Ext: No C/C/E. No calf tenderness. Medical Decision Making Patient presenting to ED with heart racing and palpitations. She is found to be in atrial fibrillation which is a new diagnosis. Some very mild chest pain earlier, none now. No real shortness of breath. Blood pressure is elevated. IV established. Will start with Lopressor IV for rate control. Laboratory studies including a D-dimer, electrolytes, TSH sent. EKG is atrial fibrillation with left axis deviation and nonspecific ST changes likely rate related. Chest imaging pending results of D-dimer. 02:20 - Patient's labs shows erythrocytosis with hemoglobin of 17 and hematocrit of 52.6. Electrolytes are normal, except for slightly elevated bicarb at 34.5. Liver function is normal. TSH just slightly elevated but free T4 normal. Age-adjusted D-dimer is negative. Initial troponin is normal. With 3 doses of IV Lopressor heart rate has slowed to 100, but she does remain in atrial fibrillation. Chest x-ray is ordered. Second troponin obtained. Oral dose of Lopressor 25 mg given. 03:20 - Patient's repeat troponin remains normal. Chest x-ray per my read with no acute cardiopulmonary process. For the most part patient is rate controlled right around 100. She will occasionally still jump up to the 120 range, more so if active such as using the commode. Discussed anticoagulation with the patient. She is not opposed to this. Also discussed admission to be sure she remains rate controlled as well as to obtain cardiac echo. She is okay with this. Case discussed with hospitalist. Patient will be observation admission for new onset A-fib. Imaging Data Radiologic Study: Attestation: I personally reviewed and interpreted this imaging study as follows: Imaging: X-Ray My impression: No acute cardiopulmonary process Lab Data Lab results reviewed: Yes I reviewed the patient's lab results. Lab results narrative: see [facility] ECG Data Attestation: I personally reviewed and interpreted this ECG (s) as follows: Prior ECG tracings: available for review Interpretation: see EKG/MDM PFSH All Active Problems (Updated 06/18/24 @ 03:21 by Saravanan Orozco MD) New onset atrial fibrillation (Acute) Nasal polyp (Acute) Kidney stone on left side (Chronic) Lipoma of back (Chronic) Hyperplastic colon polyp (Acute ~11/2023) Tubular adenoma of colon (Acute ~11/2023) Positive fecal immunochemical test (Acute) Cubital tunnel syndrome on left (Acute) Closed fracture of left proximal humerus (Acute 08/03/20) Diverticulosis (Acute) Right rotator cuff tendonitis (Acute) Injected 09/20/2018 Medical History Thrombocytosis Pt. denies this Fatty liver Rosacea Osteoporosis Hyperparathyroidism Resolved after parathyroidectomy Chronic insomnia Genital herpes Chronic back pain Obese Asthma Surgical History History of colonoscopy (~11/2023) Colon polyp Inflammatory polyp 01/2020, repeat 10 years Hx of cholecystectomy Hx of parathyroidectomy 2016 Social History Smoking/Tobacco Use Status: Never Smoking risk assessment performed?: Yes Alcohol Intake: current Alcohol Intake frequency: a few times a month Alcohol type: beer and wine Substance use type: does not use Housing: house Current gender identity: female Do you feel safe at home: Yes Do you feel safe in your relationship?: Yes
[2024-06-18] MEDS: Metoprolol 5 MG/5 ML VIAL IVP ×3 (01:07→01:50)
[2024-06-18 01:09] LABS: Abs Immature Grans 0.03 10^3/uL (0.0-0.06); Absolute Eosinophil Count 0.48 10^3/uL (0.0-0.7); Absolute Lymphocyte Count 3.11 10^3/uL (1.2-3.4); Absolute Neutrophil Count 5.37 10^3/uL (1.2-6.7); Eosinophils % 4.9 %; HCT 52.6 % (36.0-46.0); Immature Grans % 0.3 %; Lymphocytes % 31.8 %; MCHC 32.3 % (32.0-36.0); MCV 93 fL (80-95); MPV 9.7 fL (8.0-11.0); Monocytes % 7.2 %; Neutrophils % 54.8 %; Platelet Count 314 10^3/uL (130-400); RBC 5.66 10^6/uL (3.93-5.22); RDW 13.1 % (11.7-14.6); RDW-SD 44.4 fL; WBC 9.79 10^3/uL (4.4-10.8)
[2024-06-18 01:32] LABS: ALT 32 U/L (14-59); AST 20 U/L (15-37); Alkaline Phosphatase 111 U/L (46-116); Anion Gap 5.5 mmol/L (3-11); BUN 12 mg/dL (7-18); Bilirubin, Total 0.43 mg/dL (0.2-1.0); CO2 34.5 mmol/L (21.0-32.0); CREATININE 1.2 mg/dL (0.55-1.02); Calcium 9.7 mg/dL (8.5-10.1); Chloride 105 mmol/L (98-107); Estimated GFR 49.61 (mL/min/1.73m2); Glucose 113 mg/dL (74-106); Magnesium 2.1 mg/dL (1.8-2.4); Potassium 3.5 mmol/L (3.5-5.1); Sodium 145 mmol/L (136-145); Total Protein 8.3 g/dL (6.4-8.2); Troponin I 9 ng/L (<or=51)
[2024-06-18 01:41] LABS: D-Dimer 529 ng/mlFEU (<500)
--- NOTE | 2024-06-18 01:45 | DI.RAD_ITS ---
Exam(s) XR CHEST 2V PA LATERAL EXAM: XR CHEST 2V PA LATERAL CLINICAL HISTORY: new onset afib. TECHNIQUE: 2D digital imaging was performed. COMPARISON: CR,XR XR CHEST 2V PA LATERAL from 01/29/2021 FINDINGS: 2 views: Heart size is upper normal. The mediastinum is not widened. No infiltrates nor pleural effusions. Mild tenting of the right hemidiaphragm again noted. IMPRESSION: No acute pulmonary findings. DATA REPOSITORY: RADIATION DOSE DELIVERED:
[2024-06-18 01:48] LABS: FREE T4 1.08 ng/dL (0.76-1.46)
[2024-06-18] MEDS: Metoprolol 25 MG TAB PO (02:11)
[2024-06-18 02:38] LABS: Troponin I 12 ng/L (<or=51)
--- NOTE | 2024-06-18 02:39 | DI.VRAD_ITS ---
PROCEDURE INFORMATION: Exam: XR Chest Exam date and time: 06/18/2024 2:07 AM Age: 69 years old Clinical indication: Other: New onset afib TECHNIQUE: Imaging protocol: Radiologic exam of the chest. Views: 2 views. COMPARISON: XR CHEST 2V PA LATERAL 01/29/2021 11:53 PM FINDINGS: Lungs: There is flattening of the hemidiaphragms on the lateral view and increased AP dimension of the thorax suspicious for COPD. No pulmonary consolidation is seen. Pleural spaces: No pleural effusion or pneumothorax is demonstrated. Heart/Mediastinum: Heart appears normal in size. Bones/joints: There is thoracic kyphosis. There are osteophytes along the thoracic spinal margin. IMPRESSION: 1. No active disease is seen in the chest. 2. Suspected underlying COPD. Clinical correlation recommended. Dictated and Authenticated by: Wenceslao Leavitt MD. Ordering:KATIHA Coe MD
--- NOTE | 2024-06-18 03:37 | W.PM.HP.N ---
Date of service: 06/18/24 Time of Service: 03:37 Assessment and Plan Assessment and plan (1) Paroxysmal atrial fibrillation with RVR: Start date: 06/18/24 Status: Acute Assessment and plan: This is a 69-year-old lady who presents with palpitations and racing heart with new onset atrial fibrillation with rapid ventricular response which at this time appears to be uncomplicated. She is responsive metoprolol IV and now oral therapy with oral metoprolol being adjusted to heart rate control. She should go home on metoprolol. Echocardiogram will be performed and she was initiated on Eliquis after risk-benefit was reviewed. She is prediabetic, obese and has thrombocytosis so this is not being treated but no history of thromboembolic events. Per ED provider, she has a CHADS2 score. Her troponins were negative and she appeared to have no ischemic event but no thyroid disease, minimal or no alcohol intake and no history of atrial fibrillation in her family. Long-term she agrees to follow-up with cardiology. She is a full code. (2) Thrombocytosis: Assessment and plan: Patient is not aware of the diagnosis of this not being treated. This may increase risk of clotting the patient is on Eliquis. (3) Asthma: Assessment and plan: Patient is on the dupilumab and rescue inhaler only. Continue rescue inhaler as needed. (4) Depression: Status: Chronic Assessment and plan: Continue outpatient medical therapy while hospitalized. History of Present Illness History of Present Illness Chief Complaint: Palpitations Narrative: This is a 69-year-old female patient who has no history of cardiac disease awakening with palpitations and racing heart. She had some mild chest discomfort but no shortness of breath while at home but this is resolved. She denies any diaphoresis or nausea. There was no radiation of her chest discomfort. She has had occasional palpitations in the past which were brief and nonsustained but nothing like today. She reported to the ED for evaluation and was found to have atrial fibrillation which was her concern having seen at home that her 's Apple Watch said the same. She does have prediabetes with a fatty liver, asthma on rescue inhalers nasal polyps on every 2-week subcutaneous dupilumab, depression on antidepressants and thrombocytosis not being treated and of which the patient is not aware by history. In the ED her heart rate was in the 160s but was controlled with IV metoprolol 5 mg x 3 and was placed on oral metoprolol 25 mg. Her heart rate is better controlled at rest between 100 and 120. Her troponins were negative. EKG showed only rate related changes. She was agreeable to anticoagulation and Eliquis will be initiated. She will be observed overnight with telemetry and adjusting dose of oral metoprolol for rate control with blood pressure monitoring as we adjust metoprolol dose. Echocardiogram will be ordered. Patient is a full code. Review of Systems Narrative: 13 point review of systems otherwise unrevealing or stable. She is overweight. PFSH All Active Problems Depression (Chronic) Paroxysmal atrial fibrillation with RVR (Acute) New onset atrial fibrillation (Acute) Nasal polyp (Acute) Kidney stone on left side (Chronic) Lipoma of back (Chronic) Hyperplastic colon polyp (Acute ~11/2023) Tubular adenoma of colon (Acute ~11/2023) Positive fecal immunochemical test (Acute) Cubital tunnel syndrome on left (Acute) Closed fracture of left proximal humerus (Acute 08/03/20) Diverticulosis (Acute) Right rotator cuff tendonitis (Acute) Injected 09/20/2018 Medical History Thrombocytosis Pt. denies this Fatty liver Rosacea Osteoporosis Hyperparathyroidism Resolved after parathyroidectomy Chronic insomnia Genital herpes Chronic back pain Obese Asthma Surgical History History of colonoscopy (~11/2023) Colon polyp Inflammatory polyp 01/2020, repeat 10 years Hx of cholecystectomy Hx of parathyroidectomy 2016 Social History Smoking/Tobacco Use Status: Never Smoking risk assessment performed?: Yes Alcohol Intake: current Alcohol Intake frequency: a few times a month Alcohol type: beer and wine Substance use type: does not use Housing: house Current gender identity: female Do you feel safe at home: Yes Do you feel safe in your relationship?: Yes Meds Allergies and Home Medications Allergies Allergy/AdvReac Type Severity Reaction Status Date / Time No Known Allergies Allergy Verified 12/17/23 11:44 Home Medications ?Medication ?Instructions ?Recorded ?Confirmed ?Type epinephrine 0.3 mg/0.3 mL 0.3 mg (0.3 mL) IJ PRN PRN 05/04/17 01/22/25 Rx injection, auto-injector Anaphylaxis ##1 omeprazole 20 mg capsule,delayed 20 mg PO DAILY 01/07/20 06/18/24 History release cholecalciferol (vitamin D3) 10 10 mcg PO DAILY 01/08/20 06/18/24 History mcg (400 unit) capsule liver plex 1 cap PO DAILY 01/08/20 06/18/24 History magnesium 30 mg tablet 30 mg PO DAILY 01/08/20 06/18/24 History valacyclovir 1 gram tablet 1,000 mg PO DAILY PRN 08/04/20 06/18/24 History (Valtrex) potassium chloride 8 mEq 8 meq PO DAILY 01/05/21 06/18/24 History tablet,extended release vitamin E 100 unit tablet 100 unit PO DAILY 05/11/21 06/18/24 History albuterol sulfate 90 mcg/actuation 2 puff inhalation Q6H PRN 11/28/23 06/18/24 History aerosol inhaler bupropion HCl 150 mg 24 hr tablet, 150 mg PO QAM 11/28/23 06/18/24 History extended release calcium carbonate (Calcium 500) 1,500 mg PO BID 11/28/23 06/18/24 History dupilumab 300 mg/2 mL subcutaneous 300 mg subcut Q2W 11/28/23 06/18/24 History pen injector (Dupixent) folic acid 400 mcg tablet 0.4 mg PO DAILY 11/28/23 06/18/24 History mometasone 50 mcg/actuation nasal 2 spray intranasal DAILY 11/28/23 06/18/24 History spray (Nasonex 24hr Allergy) oxybutynin chloride 10 mg 10 mg PO DAILY 06/18/24 06/18/24 History tablet,extended release 24 hr Exam Narrative Exam Narrative: General: Patient is moderately obese, alert and oriented x 3 and in no acute distress. HEENT: Normocephalic, eyes with pupils equal and reactive light symmetric, extraocular movement intact and sclera anicteric. Oropharynx with moist mucosa. Good dentition. Neck: Supple without JVD. Back: Stooped posture without CVA tenderness. Lungs: Clear to auscultation percussion with no focalizing rales or rhonchi. No expiratory wheeze. Normal vesicular breath sounds. Breast: Exam deferred. Heart: Irregular irregular rhythm with normal rate. No murmurs or gallops appreciated. Abdomen: Obese contour, soft and nontender to palpation with no palpable hepatosplenomegaly. Bowel sounds positive in all quadrants. Genitalia/rectal: Exam deferred. Extremities: Without clubbing, cyanosis or pitting edema. Peripheral pulses intact. Skin: Normal color, warm and dry. Neuro: Cranial nerves II through XII gross intact, no focalized motor deficits and no tremor. Psych: Normal affect and mood. No abnormal thought processes. Remote and recent memory grossly intact. Results Imaging Imaging Studies: Exam: XR Chest Exam date and time: 06/18/2024 2:07 AM Age: 69 years old Clinical indication: Other: New onset afib TECHNIQUE: Imaging protocol: Radiologic exam of the chest. Views: 2 views. COMPARISON: XR CHEST 2V PA LATERAL 01/29/2021 11:53 PM FINDINGS: Lungs: There is flattening of the hemidiaphragms on the lateral view and increased AP dimension of the thorax suspicious for COPD. No pulmonary consolidation is seen. Pleural spaces: No pleural effusion or pneumothorax is demonstrated. Heart/Mediastinum: Heart appears normal in size. Bones/joints: There is thoracic kyphosis. There are osteophytes along the thoracic spinal margin. IMPRESSION: 1. No active disease is seen in the chest. 2. Suspected underlying COPD. Clinical correlation recommended. Labs 06/18/24 00:52 06/18/24 00:52 Labs: Laboratory Results - last 24 hr 06/18/24 06/18/24 00:52 02:14 WBC 9.79 RBC 5.66 H Hgb 17.0 H Hct 52.6 H MCV 93 MCH 30.0 MCHC 32.3 RDW 13.1 Plt Count 314 MPV 9.7 Immature Gran % 0.3 Neutrophils % 54.8 Lymphocytes % 31.8 Monocytes % 7.2 Eosinophils % 4.9 Basophils % 1.0 Nucleated RBC % 0.0 Absolute Neutrophils 5.37 Absolute Lymphocytes 3.11 Absolute Monocytes 0.70 Absolute Eosinophils 0.48 Absolute Basophils 0.10 D-Dimer 529 H Sodium 145 Potassium 3.5 Chloride 105 Carbon Dioxide 34.5 H Anion Gap 5.5 BUN 12 Creatinine 1.2 H Est GFR (CKD-EPI 2020) 49.61 Glucose 113 H Calcium 9.7 Magnesium 2.1 Total Bilirubin 0.43 AST 20 ALT 32 Alkaline Phosphatase 111 Troponin I 9 12 Total Protein 8.3 H Albumin 4.0 TSH 3.90 H Free T4 1.08 Last Vital Signs Pulse 83 06/18/24 02:46 Resp 18 06/18/24 03:30 BP 132/77 06/18/24 03:15 Pulse Ox 92 06/18/24 03:30 Time Spent Time spent with Patient: >75 minutes Time was spent: preparing to see the patient(eg.review tests), obtaining and/or reviewing separately otained hiistory, ordering medications,tests, procedures, indepentently interpreting results, counseling the patient and care coordination
--- NOTE | 2024-06-18 04:50 | W.PC.ACHO ---
Registration Status: Primary Language: Preferred Language: ED Information & Data Chief Complaint Arrhythmia 06/18/24 00:53 Chief Complaint Arrhythmia 06/18/24 00:49 Triage Note pt laid down to go to bed 06/18/24 00:49 and felt her heart started fluttering and that she does not feel right. States that her blood pressure was high . Denies having a cardiac hx , no afib. Pain in chest, slightly SOB. on a baby asprin, no thinners. Medical / Surgical History (Last Reviewed 06/18/24 @ 03:58 by Obdulio Carreon) Thrombocytosis Fatty liver Rosacea Osteoporosis Hyperparathyroidism Chronic insomnia Genital herpes Chronic back pain Obese Asthma (Last Reviewed 06/18/24 @ 03:58 by Obdulio Carreon) History of colonoscopy (~11/2023) Colon polyp Hx of cholecystectomy Hx of parathyroidectomy Most Recent Vital Signs Pulse 74 06/18/24 04:31 Pulse 74 06/18/24 04:31 Respiratory Rate 22 06/18/24 04:40 Blood Pressure 116/85 06/18/24 04:31 Blood Pressure Mean 95 06/18/24 04:31 Pulse Oximetry 93 06/18/24 04:40 Oxygen Delivery Method Room Air 06/18/24 00:54 Oxygen Flow Rate 0 06/18/24 00:54 Allergies No Known Allergies Allergy (Verified 12/17/23 11:44) Precautions Isolation Standard precaution 06/18/24 00:53 IV IV Catheter Type [Left Peripheral IV Antecubital] IV Catheter Type [Right Saline Lock Antecubital] IV Catheter Gauge [Left 18 Antecubital] IV Catheter Gauge [Right 18 Antecubital] Diagnostics 06/18/24 06/18/24 06/18/24 Range/Units 03:55 02:14 00:52 WBC 9.79 (4.4-10.8) 10^3/uL RBC 5.66 H (3.93-5.22) 10^6/uL Hgb 17.0 H (11.2-15.7) g/dL Hct 52.6 H (36.0-46.0) % MCV 93 (80-95) fL MCH 30.0 (27.0-33.0) pg MCHC 32.3 (32.0-36.0) % RDW 13.1 (11.7-14.6) % Plt Count 314 (130-400) 10^3/uL MPV 9.7 (8.0-11.0) fL Immature Gran % 0.3 % Neutrophils % 54.8 % Lymphocytes % 31.8 % Monocytes % 7.2 % Eosinophils % 4.9 % Basophils % 1.0 % Nucleated RBC % 0.0 (0.0-0.3) % Absolute Neutrophils 5.37 (1.2-6.7) 10^3/uL Absolute Lymphocytes 3.11 (1.2-3.4) 10^3/uL Absolute Monocytes 0.70 (0.1-0.8) 10^3/uL Absolute Eosinophils 0.48 (0.0-0.7) 10^3/uL Absolute Basophils 0.10 (0.0-0.2) 10^3/uL D-Dimer 529 H (<500) ng/mlFEU Sodium 145 (136-145) mmol/L Potassium 3.5 (3.5-5.1) mmol/L Chloride 105 (98-107) mmol/L Carbon Dioxide 34.5 H (21.0-32.0) mmol/L Anion Gap 5.5 (3-11) mmol/L BUN 12 (7-18) mg/dL Creatinine 1.2 H (0.55-1.02) mg/dL Est GFR (CKD-EPI 2020) 49.61 (mL/min/1.73m2) Glucose 113 H (74-106) mg/dL Calcium 9.7 (8.5-10.1) mg/dL Magnesium 2.1 (1.8-2.4) mg/dL Total Bilirubin 0.43 (0.2-1.0) mg/dL AST 20 (15-37) U/L ALT 32 (14-59) U/L Alkaline Phosphatase 111 (46-116) U/L Troponin I 12 9 (<or=51) ng/L Total Protein 8.3 H (6.4-8.2) g/dL Albumin 4.0 (3.4-5.0) g/dL TSH 3.90 H (0.36-3.74) uIU/mL Free T4 1.08 (0.76-1.46) ng/dL COVID-19 Source Pending SARS-CoV-2 (PCR) Pending Intake and Output - 24 Hour Total 06/18/24 00:45 thru 06/18/24 01:34 Intake Total 10 Output Total 300 Balance -290 Weight 95.254 kg Intake: IV 10 Output: Urine 300 Other: # Voids 1 Falls Risk Assessment History of Falls No History 06/18/24 00:56 Contributing Factors No Factors 06/18/24 00:56 Ambulatory Aids Independent 06/18/24 00:56 Tubes/Lines None 06/18/24 00:56 Gait Evaluation No gait disturbance 06/18/24 00:56 Cognition No cognitive impairment 06/18/24 00:56 Fall Total Score 0 06/18/24 00:56 Level of Risk Standard/Low Risk 06/18/24 00:56 Problems (Last Reviewed 06/18/24 @ 03:58 by Obdulio Carroen) Depression (Chronic) Paroxysmal atrial fibrillation with RVR (Acute) v v v v v v v v v Sending and/or Receiving Nurses: Please use comment section below to note any information pertinent to the patient hand-off not included above. Information / Comments: Report received from: Caesar KOHLI at [id number]
[2024-06-18] MEDS: Metoprolol 12.5 MG TAB PO (05:47)
[2024-06-18 06:09] LABS: HCT 48.9 % (36.0-46.0); HGB 15.9 g/dL (11.2-15.7); MCH 29.8 pg (27.0-33.0); MCHC 32.5 % (32.0-36.0); MCV 92 fL (80-95); Platelet Count 306 10^3/uL (130-400); RBC 5.34 10^6/uL (3.93-5.22); RDW 13.2 % (11.7-14.6); RDW-SD 44.5 fL; WBC 8.31 10^3/uL (4.4-10.8)
[2024-06-18 06:29] LABS: ALT 29 U/L (14-59); AST 19 U/L (15-37); Albumin 3.5 g/dL (3.4-5.0); Alkaline Phosphatase 95 U/L (46-116); Anion Gap 7.7 mmol/L (3-11); BUN 14 mg/dL (7-18); Bilirubin, Total 0.37 mg/dL (0.2-1.0); CO2 28.3 mmol/L (21.0-32.0); Calcium 9.2 mg/dL (8.5-10.1); Chloride 109 mmol/L (98-107); Estimated GFR 61.75 (mL/min/1.73m2); Glucose 118 mg/dL (74-106); Magnesium 2.2 mg/dL (1.8-2.4); Potassium 4.4 mmol/L (3.5-5.1); Sodium 145 mmol/L (136-145); Total Protein 6.9 g/dL (6.4-8.2)
[2024-06-18] MEDS: Cholecalciferol (Vitamin D3) 400 UNIT TAB PO (08:28)
[2024-06-18] MEDS: Omeprazole 20 MG CAPCR PO (08:29)
[2024-06-18] MEDS: Oxybutynin-CR 5 MG TABCR 10 MG PO (08:30)
[2024-06-18] MEDS: buPROPion-XL 150 MG TABCR PO (08:31)
--- NOTE | 2024-06-18 08:33 | PDOC.CMIN ---
Date of service: 06/18/24 Time of Service: 08:33 Care Management Initial Assmt Initial Assessment Reason for Hospitalization: New onset Afib Functional Status/Living Situation Patient Presentation: Alexa is admitted for close monitoring and medical management for New Onset of Afib. She is awake and sitting up in bed. She had an echo today and is planning on seeing cardiology in the tomorrow. Anticipate, pt will discharge home when medically ready and follow up community providers, as directed. Town of Residence: [place] Resides with: Spouse (Nam) Significant Other/Family: Local Natural Supports: Supportive family Employment Status: Retired Instrumental Activities of Daily Living (ADLs): Independent Medications Medication Management: No Issues/Barriers identified Physical Functioning/Mobility Assistive Device: None Advance Directives Advance Directives: Do you have an Advance Directive: N 11/28/23 13:39 AD On File at [facility]: N 11/28/23 13:39 Date Asked 06/18/24 06/18/24 01:24 AD Date Reviewed COLST On File at [facility] COLST Date Scanned Code Status Resuscitation Status Full Code Insurance Coverage/Financial Issues Insurance: /[facility] Financial Issues: None identified Care Team Visit Care Team Role Provider Type Holley Faith Primary Care Provider ADV PRACTICE REGISTERED NURSE Saravanan Orozco MD Emergency Provider [facility] STAFF PHYSICIAN Obdulio Carreon Admit Provider NON-[facility] STAFF PHYSICIAN Attending Provider Discharge Potential Discharge Needs: PCP F/U Appt and Other (Cardiology) Anticipated Barriers to Discharge: None Identified (Requires additional monitoring and has a cardiology consult. ) Patient/Family Education Needs: Review discharge instructions, discuss Ask Me Three Transportation: Private vehicle Plan: Anticipate Alexa will discharge home via private vehicle with her tomorrow after her cardiology consult, if medically stable. Pt will follow up with community providers and her discharge plan of care as instructed. No new services are anticipated at this time. CM will follow. Social Determinants of Health Screening Social Determinants of Health last assessed: 06/18/24 Will the Patient Participate in the Screening?: Yes Do you worry about having a steady place to live?: no Problems where you live: no known problems In the past 12 months, have you had to go without electric, gas, oil or water in your home?: no Have you or anyone in your house had to go without enough food to eat?: no Has lack of transportation kept you from medical appointments or from doing things needed for daily living?: no Has anyone in your life made you feel unsafe or unsupported?: no How hard is it for you to pay for the very basics like food, housing, medical care, and heating? Would you say it is:: Not hard at all Do you want help finding or keeping work or a job?: I do not need or want help If for any reason you need help with day-to-day activities such as bathing, preparing meals, shopping, managing finances, etc., do you get the help you need?: I don?t need any help How often do you feel lonely or isolated from those around you?: Never Do you speak a language other than Maltese at home?: No Does the patient want assistance with any of the above?: No PFSH All Active Problems Depression (Chronic) Paroxysmal atrial fibrillation with RVR (Acute) New onset atrial fibrillation (Acute) Nasal polyp (Acute) Kidney stone on left side (Chronic) Lipoma of back (Chronic) Hyperplastic colon polyp (Acute ~11/2023) Tubular adenoma of colon (Acute ~11/2023) Positive fecal immunochemical test (Acute) Cubital tunnel syndrome on left (Acute) Closed fracture of left proximal humerus (Acute 08/03/20) Diverticulosis (Acute) Right rotator cuff tendonitis (Acute) Injected 09/20/2018 Medical History Thrombocytosis Pt. denies this Fatty liver Rosacea Osteoporosis Hyperparathyroidism Resolved after parathyroidectomy Chronic insomnia Genital herpes Chronic back pain Obese Asthma Surgical History History of colonoscopy (~11/2023) Colon polyp Inflammatory polyp 01/2020, repeat 10 years Hx of cholecystectomy Hx of parathyroidectomy 2017 Social History Smoking/Tobacco Use Status: Never Smoking risk assessment performed?: Yes Alcohol Intake: current Alcohol Intake frequency: a few times a month Alcohol type: beer and wine Substance use type: does not use Housing: house Current gender identity: female Do you feel safe at home: Yes Do you feel safe in your relationship?: Yes
[2024-06-18] MEDS: Calcium Carbonate 1.25 GM TAB PO ×2 (08:34→19:55)
[2024-06-18] MEDS: Apixaban 5 MG TAB PO ×2 (08:35→19:55)
[2024-06-18] MEDS: Folic Acid 1 MG TAB 0.5 MG PO (08:39)
[2024-06-18 10:13] LABS: COVID-19 PCR Negative (Negative); Influenza A PCR Negative (Negative); Influenza B PCR Negative (Negative); RSV PCR Negative (Negative)
[2024-06-18 10:14] LABS: Source Nasopharynx
[2024-06-18] MEDS: Normal Saline Flush 10 ML SYR IVP ×2 (10:28→19:56)
[2024-06-18 11:24] LABS: Bilirubin Negative (Negative); Blood Negative (Negative); Clarity Clear (Clear); Glucose Negative (Negative); Ketones Negative (Negative); Leukocyte Esterase Negative (Negative); Nitrite Negative (Negative); Specific Gravity 1.015 (1.005-1.025); Urobilinogen 0.2 mg/dL (Up to 0.2)
[2024-06-18] MEDS: Metoprolol CR 25 MG TABCR PO (13:02)
--- NOTE | 2024-06-18 15:52 | CHAPLAIN ---
Alexa was sitting up in the chair when I visited. She was pleasant and engaged in a conversation. 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 She travels to [place] two months each winter to live in the same town and really enjoys being there. She said it is a very friendly and safe place to live.
[2024-06-18] MEDS: Acetaminophen 325 MG TAB PO (20:06)
[2024-06-19 02:56] VITALS: BP 112/62; PULSE 66; RESP 16; TEMP 36.6; O2SAT 94
[2024-06-19 07:44] VITALS: BP 116/89; PULSE 67; RESP 18; TEMP 36.8; O2SAT 97
[2024-06-19 08:10] VITALS: O2SAT 94
--- NOTE | 2024-06-19 08:43 | W.CARDCONSUL ---
Date of service: 06/19/24 Time of Service: 08:43 Assessment and Plan Assessment and plan (1) New onset atrial fibrillation: Status: Acute Assessment and plan: Patient presented with atrial fibrillation. Heart rate is still not optimally controlled. Her echocardiogram shows no underlying structural heart disease. She is appropriately anticoagulated now. I recommend persevering with rate control. She can be discharged when heart rate is below 100. We will plan to follow-up in clinic. Eventually she should see electrophysiology to discuss additional options History of Present Illness History of Present Illness Chief Complaint: Rapid heartbeat Narrative: This is a 69-year-old woman who presented to the hospital after experiencing symptoms of elevated and irregular heartbeat. She reports she noted this bed, became concerned and went and checked her blood pressure. Her blood pressure was high and she then awakened her who recommended use of an Apple watch. The Apple Watch said she was in atrial fibrillation and she came here to the hospital. Her heart rate was elevated and she has been treated with rate control strategy using metoprolol. This has been variably effective. She has also been started on anticoagulation with apixaban. She had an echocardiogram performed which showed normal left ventricular systolic function, no valvular disease Patient has no past history of any cardiac illness. She is not hypertensive. She was checked several years ago for sleep apnea, told she had a very mild case and that CPAP was optional. She is not experiencing dizziness, difficulty breathing, chest pressure. 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 She is planning to go to [place] soon where she will be at high altitude EKG showed atrial fibrillation, rate 130, minor rate related ST abnormalities Review of Systems Cardiovascular Cardiovascular: Reports as per HPI PFSH All Active Problems Depression (Chronic) Paroxysmal atrial fibrillation with RVR (Acute) New onset atrial fibrillation (Acute) Nasal polyp (Acute) Kidney stone on left side (Chronic) Lipoma of back (Chronic) Hyperplastic colon polyp (Acute ~11/2023) Tubular adenoma of colon (Acute ~11/2023) Positive fecal immunochemical test (Acute) Cubital tunnel syndrome on left (Acute) Closed fracture of left proximal humerus (Acute 08/03/20) Diverticulosis (Acute) Right rotator cuff tendonitis (Acute) Injected 09/20/2018 Medical History Thrombocytosis Pt. denies this Fatty liver Rosacea Osteoporosis Hyperparathyroidism Resolved after parathyroidectomy Chronic insomnia Genital herpes Chronic back pain Obese Asthma Surgical History History of colonoscopy (~11/2023) Colon polyp Inflammatory polyp 01/2020, repeat 10 years Hx of cholecystectomy Hx of parathyroidectomy 2016 Social History Smoking/Tobacco Use Status: Never Smoking risk assessment performed?: Yes Alcohol Intake: current Alcohol Intake frequency: a few times a month Alcohol type: beer and wine Substance use type: does not use Housing: house Current gender identity: female Do you feel safe at home: Yes Do you feel safe in your relationship?: Yes Exam Const Other: Very pleasant mildly overweight no acute distress Neck Other: No neck vein distention or V waves normal carotid upstrokes no bruits Resp Auscultation: clear to auscultation bilaterally Cardio Other: Irregularly irregular rate currently at approximately 120 no murmur or gallop Extrem Other: No significant edema Results Last Vital Signs Temp 36.8 C 06/19/24 07:44 Pulse 67 06/19/24 07:44 Resp 18 06/19/24 07:44 BP 116/89 06/19/24 07:44 Pulse Ox 97 06/19/24 07:44 Labs 06/18/24 05:15 06/18/24 05:15 Labs: Laboratory Results - last 24 hr 06/18/24 06/18/24 06/18/24 08:45 08:45 08:45 Urine Color Urine Clarity Urine pH Ur Specific [place] Urine Protein Urine Ketones Urine Blood Urine Nitrite Urine Bilirubin Urine Urobilinogen Ur Leukocyte Esterase Urine Glucose COVID-19 Source Cancelled Nasopharynx SARS-CoV-2 (PCR) Cancelled Negative Influenza Type A (PCR) Negative Influenza Type B (PCR) Negative RSV (PCR) Negative 06/18/24 10:25 Urine Color Yellow Urine Clarity Clear Urine pH 7.0 Ur Specific [place] 1.015 Urine Protein Negative Urine Ketones Negative Urine Blood Negative Urine Nitrite Negative Urine Bilirubin Negative Urine Urobilinogen 0.2 Ur Leukocyte Esterase Negative Urine Glucose Negative COVID-19 Source SARS-CoV-2 (PCR) Influenza Type A (PCR) Influenza Type B (PCR) RSV (PCR) EKG interpretations EKG EKG shows: atrial fibrillation
--- NOTE | 2024-06-19 09:01 | PDOC.CMDIS ---
Date of service: 06/19/24 Time of Service: 09:01 LACE Index Scoring Tool Questions: Length of Stay (in days): 1 Was the patient admitted via the E.D.?: Yes E.D. Visits: 1 Answers: Total Score: 5 Risk of Readmission: Low Risk Care Management Discharge Plan Reason for Hospitalization: New onset of Afib requiring Cardiology consult and rate control and monitoring Discharge Plan: Alexa will discharge home via private vehicle with family. Follow up with community providers and discharge plan of care as directed. No new services are ordered prior to discharge. Outpatient cardiology follow up is recommended. Patient/Family Education Needs: Review discharge instructions, limitations, medications and plan to follow up with community providers. Discuss ask me three. SDOH Health Related Social Needs: No Data to Display
[2024-06-19] MEDS: Folic Acid 1 MG TAB 0.5 MG PO (09:06)
[2024-06-19] MEDS: Oxybutynin-CR 5 MG TABCR 10 MG PO (09:07)
[2024-06-19] MEDS: buPROPion-XL 150 MG TABCR PO (09:07)
[2024-06-19] MEDS: Apixaban 5 MG TAB PO (09:07)
[2024-06-19] MEDS: Omeprazole 20 MG CAPCR PO (09:07)
[2024-06-19] MEDS: Calcium Carbonate 1.25 GM TAB PO (09:07)
[2024-06-19] MEDS: Metoprolol CR 50 MG TABCR PO (09:07)
[2024-06-19] MEDS: Cholecalciferol (Vitamin D3) 400 UNIT TAB PO (09:07)
[2024-06-19] MEDS: Normal Saline Flush 10 ML SYR IVP (09:08)
--- NOTE | 2024-06-19 10:49 | W.NUTRFU ---
Date of service: 06/18/24 Time of Service: 01:15 Nutrition Note NOTE: met with patient yesterday, who denies nutrition concerns/has any questions. She revealed a turkey allergy to me which was relayed to kitchen and added to her nutrition screening form. She had a 5.8 a1c last september - offered outpatient services f or diabetes prevention education - declined at this time. will continue to monitor until d/c for changes to nutrition status Time Spent in Nutritional Counseling and Treatment: 5 min
[2024-06-19 11:09] VITALS: BP 104/66; PULSE 48; RESP 18; TEMP 36.5; O2SAT 95
--- NOTE | 2024-06-19 11:15 | RT.EKG_ITS ---
APPROVED REPORT Exam: Resting ECG Reason for Exam: Conversion to sinusal rhythm from A--fib Patient Location: I HR:47 bpm ECG Measurements Heart Rate 47 AXIS [place] 144 P 39 QRSd 90 QRS -28 QT 424 T 27 QTc 374 Conclusion Sinus bradycardia...rate< 60 Late transition
[2024-06-19 11:36] VITALS: PULSE 86
--- NOTE | 2024-06-19 12:10 | DSE_ITS ---
Date of service: 06/19/24 Time of Service: 12:11 DS: Diagnosis Discharge Diagnosis (1) New onset atrial fibrillation: Status: Acute Discharge Plan Disposition Patient Disposition: Home Condition: Improving Discharge Details Reason For Visit: New onset atrial fibrillation with RVR Admit Date/Time: 06/18/24 03:55 Admit Provider: Obdulio Carreon Attending Provider: Obdulio Carreon Primary Care Provider: Holley Faith Hospital Course Hospital Course: This 69 years old female with a medical history significant for prediabetes patient presented to the ED at [facility] on 06/18/2024 for evaluation of palpitation and heart racing. Patient reported slight midsternal pressure resolving within 15 minutes of onset at home; also reporting intelligence watch reporting atrial fibrillation rhythm. Workup in the emergency room included an EKG showing atrial fibrillation heart rate 130 with left axis deviation without sign of injury but slight ST depression noticed in leads I V4, V5 and V6. Troponins were negative x 2 without signs of ACS. Blood work was unremarkable except for erythrocytosis with a hemoglobin level at 17.6. In the ED the patient received IV push metoprolol and oral metoprolol tartrate. Echo was not available and the hospitalist service admitted the patient to the medical floor with telemetry for evaluation and management of new onset atrial fibrillation. During the stay the patient remained in control atrial fibrillation. An echo cardiogram was completed and showed an LVEF of 60% without segmental wall abnormalities, right ventricular systolic function and size mild mitral valve and mild to moderate tricuspid valve regurgitation. Metoprolol tartrate was transitioned to low-dose succinate and was well-tolerated. Cardiology was consulted recommendation for discharge with heart rate below 100bmp, an outpatient follow-up. Cardiology was agreeable to patient's travel plans to [place] where she would be in high altitude. Conversion to sinusal rhythm observed at 9:46 AM this morning and confirmed by EKG without any signs of ischemia or injury. The patient will be discharged home on apixaban and metoprolol succinate. The patient is advised to hold her metoprolol dose if her heart rate is below 60 in the morning. The patient will need to follow-up with his her primary care practitioner within 7 days of discharge and a referral to cardiology was also ordered. Discussed with Dr. Rodriguez Home Meds and New Rx's Prescriptions: New Eliquis 5 mg Tablet 5 mg PO BID Qty: 60 0RF metoprolol succinate 50 mg Tablet Extended Release 24 Hr 50 mg PO DAILY Qty: 30 0RF Continued cholecalciferol (vitamin D3) 10 mcg (400 unit) capsule 10 mcg PO DAILY magnesium 30 mg tablet 30 mg PO DAILY liver plex 1 cap PO DAILY potassium chloride 8 mEq tablet extended release 8 meq PO DAILY omeprazole 20 mg capsule,delayed release(DR/EC) 20 mg PO DAILY valacyclovir [Valtrex] 1 gram tablet 1,000 mg PO DAILY PRN calcium carbonate [Calcium 500] 500 mg calcium (1,250 mg) tablet 1,500 mg PO BID folic acid 400 mcg tablet 0.4 mg PO DAILY albuterol sulfate 90 mcg/actuation HFA aerosol inhaler 2 puff inhalation Q6H PRN bupropion HCl 150 mg tablet extended release 24 hr 150 mg PO QAM Dupixent Pen 300 mg/2 mL pen injector 300 mg subcut Q2W mometasone [Nasonex 24hr Allergy] 50 mcg/actuation spray,non-aerosol 2 spray intranasal DAILY Rx Instructions: administer into each nostril epinephrine 0.3 MG/SYR auto-injector 0.3 mg IJ PRN PRN (Reason: Anaphylaxis) Qty: 1 0RF vitamin E 100 unit Tablet 100 unit PO DAILY oxybutynin chloride 10 mg tablet extended release 24hr 10 mg PO DAILY Patient Comments: TAKE ONE TABLET BY MOUTH EVERY DAY Discharge Instructions Referrals: Holley Faith [Primary Care Provider] - 06/30/24 11:50 am () Delia Gutiérrez MD [ [facility] STAFF PHYSICIAN] - (A referral has been sent, the office should call, but you may also call them.) Activity:: Activity as Tolerated Equipment/Supplies:: No Equipment Needed Diet:: Heart healthy diabetic Discharge Orders Discharge Orders: Discharge Order (Routine); Ordered 06/19/24 Ordered By: Zulema Sosa DS: Summary Time Spent with Patient providing and/or coordinating discharge services: Greater than 30 minutes Status at Discharge Functional status at discharge: independent ambulation Overall status at discharge: patient is progressing back to baseline Mental Status: mental status grossly normal Speech and Movement: speech and movement normal Mood: congruent mood Affect: normal affect Quality:SDOH Health Related Social Needs: No Data to Display Exam Psych Mental Status: mental status grossly normal Speech and Movement: speech and movement normal Mood: congruent mood Affect: normal affect DS: Data Vitals/I&O Vitals and I&O: Vital Signs Temperature 36.5 C 06/19/24 11:09 Temperature Source Temporal Artery Scan 06/19/24 11:09 Pulse 86 06/19/24 11:36 Pulse Rhythm Regular 06/18/24 05:30 Pulse 74 06/18/24 04:31 Respiratory Rate 18 06/19/24 11:09 Respiratory Effort Normal, Non-Labored 06/18/24 05:30 Respiratory Depth Normal 06/18/24 05:30 Respiratory Pattern Normal 06/18/24 05:30 Blood Pressure 104/66 06/19/24 11:09 Blood Pressure Mean 95 06/18/24 04:31 Pulse Oximetry 95 06/19/24 11:09 Oxygen Delivery Method Room Air 06/19/24 11:09 Oxygen Flow Rate 0 06/19/24 11:09 Pain Level 4 06/18/24 20:06 Comment pre-med administration vitals - metoprolol 06/18/24 13:10 Intake & Output 06/18/24 06/19/24 06/19/24 23:59 11:59 23:59 Output Total 500 / 800 600 / 600 Balance -500 / -780 -600 / -600 Weight 97.52 kg Output: Urine 500 / 800 600 / 600 Other: Urine Color Yellow Yellow Urine Appearance Clear Clear Urine Odor None Normal PFSH All Active Problems Depression (Chronic) Paroxysmal atrial fibrillation with RVR (Acute) New onset atrial fibrillation (Acute) Nasal polyp (Acute) Kidney stone on left side (Chronic) Lipoma of back (Chronic) Hyperplastic colon polyp (Acute ~11/2023) Tubular adenoma of colon (Acute ~11/2023) Positive fecal immunochemical test (Acute) Cubital tunnel syndrome on left (Acute) Closed fracture of left proximal humerus (Acute 08/03/20) Diverticulosis (Acute) Right rotator cuff tendonitis (Acute) Injected 09/20/2018 Medical History Thrombocytosis Pt. denies this Fatty liver Rosacea Osteoporosis Hyperparathyroidism Resolved after parathyroidectomy Chronic insomnia Genital herpes Chronic back pain Obese Asthma Surgical History History of colonoscopy (~11/2023) Colon polyp Inflammatory polyp 01/2020, repeat 10 years Hx of cholecystectomy Hx of parathyroidectomy 2016 Social History Smoking/Tobacco Use Status: Never Smoking risk assessment performed?: Yes Alcohol Intake: current Alcohol Intake frequency: a few times a month Alcohol type: beer and wine Substance use type: does not use Housing: house Current gender identity: female Do you feel safe at home: Yes Do you feel safe in your relationship?: Yes Time Spent with Patient Time Spent with Patient: 70-84 minutes4 Time was spent: preparing to see the patient(eg.review tests), obtaining and/or reviewing separately otained hiistory, ordering medications,tests, procedures, referring, communicating with other health customer care voice consultant, indepentently interpreting results, counseling the patient and care coordination
[2024-06-19 15:27] VITALS: BP 107/68; PULSE 64; RESP 18; TEMP 36.6; O2SAT 93
== END 2024-06-19 16:57 | disposition home or self-care (01) ==
LOC: ER 04:52 → MS 04:54
PROVIDERS: Admitting Provider Family Medicine; Emergency Provider Emergency Medicine; PCP Nurse Practitioner Family; Visit Provider Family Medicine
DX: I48.0 Paroxysmal atrial fibrillation (principal); D47.3 Essential (hemorrhagic) thrombocythemia; F32.89 Other specified depressive episodes; N20.0 Calculus of kidney; K76.0 Fatty (change of) liver, not elsewhere classified; M81.0 Age-related osteoporosis without current pathological fracture; E89.2 Postprocedural hypoparathyroidism; F51.04 Psychophysiologic insomnia; E66.9 Obesity, unspecified; J45.909 Unspecified asthma, uncomplicated; Z68.35 Body mass index [BMI] 35.0-35.9, adult; R73.03 Prediabetes; Z79.899 Other long term (current) drug therapy
CPT/HCPCS: 00123; 36415; 80053; 85027; 87635; 87637; 90471; 90656; 93005; 96374; 96376; 99222; 99285; 71046; 81003; 83735; 84439; 84443; 84484; 85025; 85379; 93010; 93306; 99223; 99239; G0378; J3490

== ENCOUNTER → 2024-06-19 07:38 | Outpatient (BNVA) | payer MEDICARE, SELFPAY | PROVIDERS: PCP Nurse Practitioner Family; Referring Provider Nurse Practitioner Family; Visit Provider Internal Medicine Cardiovascular Disease ==

== ENCOUNTER 2024-07-10 07:55 | Outpatient (CLI) | payer MEDICARE, SELFPAY ==
--- NOTE | 2024-07-10 07:45 | RT.EKG_ITS ---
APPROVED REPORT Exam: Resting ECG Reason for Exam: cardiac evaluation Patient Location: O HR:57 bpm ECG Measurements Heart Rate 57 AXIS [place] 140 P 12 QRSd 113 QRS -31 QT 598 T 33 QTc 583 Conclusion Sinus rhythm...normal P axis, V-rate 50- 99 LAFB Late transition
== END 2024-07-10 07:56 | disposition home or self-care (01) ==
LOC: DI.CARD 07:55
PROVIDERS: PCP Nurse Practitioner Family; Visit Provider Internal Medicine Cardiovascular Disease
DX: I48.91 Unspecified atrial fibrillation (principal)
CPT/HCPCS: 93010

== ENCOUNTER → 2024-07-10 13:46 | Outpatient (BNVA) | payer MEDICARE, SELFPAY | PROVIDERS: PCP Nurse Practitioner Family; Referring Provider Nurse Practitioner Family; Visit Provider Internal Medicine Cardiovascular Disease | DX: I48.91 Unspecified atrial fibrillation (principal) | CPT/HCPCS: 93005; 99214 ==

== ENCOUNTER 2024-10-07 12:12 | Outpatient (REF) | payer MEDICARE, SELFPAY ==
[2024-10-07 16:25] LABS: Abs Immature Grans 0.02 10^3/uL (0.0-0.06); Absolute Basophil Count 0.06 10^3/uL (0.0-0.2); Absolute Eosinophil Count 0.31 10^3/uL (0.0-0.7); Absolute Lymphocyte Count 1.89 10^3/uL (1.2-3.4); Absolute Monocyte Count 0.51 10^3/uL (0.1-0.8); Absolute Neutrophil Count 4.15 10^3/uL (1.2-6.7); Basophils % 0.9 %; Eosinophils % 4.5 %; HCT 45.9 % (36.0-46.0); HGB 15.4 g/dL (11.2-15.7); Immature Grans % 0.3 %; Lymphocytes % 27.2 %; MCH 30.1 pg (27.0-33.0); MCHC 33.6 % (32.0-36.0); MCV 90 fL (80-95); MPV 10.4 fL (8.0-11.0); Monocytes % 7.3 %; Neutrophils % 59.8 %; Platelet Count 306 10^3/uL (130-400); RBC 5.12 10^6/uL (3.93-5.22); RDW 12.9 % (11.7-14.6); RDW-SD 42.3 fL; WBC 6.94 10^3/uL (4.4-10.8)
[2024-10-07 16:48] LABS: TSH (W/Ref FT4) 1.58 uIU/mL (0.36-3.74)
== END 2024-10-07 12:13 | disposition home or self-care (01) ==
LOC: NCHCN 12:12
PROVIDERS: PCP Nurse Practitioner Family; Visit Provider Nurse Practitioner Family
DX: E02 Subclinical iodine-deficiency hypothyroidism (principal); D75.1 Secondary polycythemia
CPT/HCPCS: 84443; 85025

== ENCOUNTER 2024-10-14 19:00 | Outpatient (REF) | payer MEDICARE, SELFPAY ==
[2024-10-14 16:49] LABS: ALT 35 U/L (14-59); AST 20 U/L (15-37); Albumin 3.5 g/dL (3.4-5.0); Alkaline Phosphatase 87 U/L (46-116); Anion Gap 6.8 mmol/L (3-11); BUN 14 mg/dL (7-18); Bilirubin, Total 0.5 mg/dL (0.2-1.0); CO2 28.2 mmol/L (21.0-32.0); CREATININE 0.9 mg/dL (0.55-1.02); Calcium 9.2 mg/dL (8.5-10.1); Chloride 106 mmol/L (98-107); Estimated GFR 70.07 (mL/min/1.73m2); Glucose 102 mg/dL (74-106); Potassium 4.5 mmol/L (3.5-5.1); Sodium 141 mmol/L (136-145); Total Protein 6.7 g/dL (6.4-8.2); Vitamin B12 523 pg/mL (193-986); Vitamin D 25 Total 38 ng/mL (30-100)
[2024-10-14 22:40] LABS: Parathyroid Hormone,Intact 48 pg/mL (19-88)
[2024-10-15 09:09] LABS: AFP Tumor Marker 2.7 ng/mL (<8.1)
== END 2024-10-14 19:01 | disposition home or self-care (01) ==
LOC: NCHCN 19:00
PROVIDERS: PCP Nurse Practitioner Family; Visit Provider Nurse Practitioner Family
DX: E21.0 Primary hyperparathyroidism (principal); K30 Functional dyspepsia
CPT/HCPCS: 80053; 82306; 82105; 82607; 83735; 83970

== ENCOUNTER 2024-11-03 01:35 | Outpatient (CLI) | payer MEDICARE, SELFPAY ==
--- NOTE | 2024-11-03 | DI.DEXA_ITS ---
Exam(s) XR DEXA BONE DENSITY W/WO GORGE EXAM: XR DEXA BONE DENSITY W/WO GORGE CLINICAL HISTORY: Primary hyperparathyroidism, E21.0; other osteoporosis wo current TECHNIQUE: COMPARISON: CR XR DEXA BONE DENSITY W/WO GORGE from 11/02/2022 FINDINGS: Lateral Spine Image: Unremarkable. No compression deformities identified. Left hip: Total T-Score: -0.8. This compares to -1.4 on the prior examination. Total Z-Score: 0.5 T- and Z-scores: There is no evidence of osteoporosis. Lumbar Spine: Total T-Score: -1.9. This compares to -2.2 on the prior examination. Total Z-Score: 0.1 T- and Z-scores: Findings are consistent with osteopenia. There is no evidence of osteoporosis. There is osteoporosis in the left forearm with a total T-score of -3.2 and Z-score of -1.5. IMPRESSION: Osteoporosis in the left forearm.
== END 2024-11-03 01:55 ==
LOC: DI 01:35
PROVIDERS: PCP Nurse Practitioner Family; Visit Provider Nurse Practitioner Family
DX: E21.0 Primary hyperparathyroidism (principal); M85.88 Other specified disorders of bone density and structure, other site
CPT/HCPCS: 77080

== ENCOUNTER 2024-11-11 01:25 | Outpatient (CLI) | payer MEDICARE, SELFPAY ==
--- NOTE | 2024-11-11 14:18 | DI.RAD_ITS ---
Exam(s) XR HIP RT COMPLETE AP PELVIS EXAM: XR HIP RT COMPLETE AP PELVIS CLINICAL HISTORY: Pain in rt hip, M25.551. TECHNIQUE: 2D digital imaging was performed. Two views COMPARISON: No exams were available for comparison FINDINGS: BONES: No acute fracture is present. No bony destructive lesion is seen. JOINTS: No dislocation present. Mild right hip joint space narrowing and mild spurring at the acetabulum and margin of the femoral head. Mild degenerative changes of the SI joints. No significant degenerative changes of the left hip. SOFT TISSUE: Normal. IMPRESSION: [id number] degenerative changes of the left hip. DATA REPOSITORY: RADIATION DOSE DELIVERED:
== END 2024-11-11 01:45 ==
LOC: DI 01:25
PROVIDERS: PCP Nurse Practitioner Family; Visit Provider Nurse Practitioner Family
DX: M16.11 Unilateral primary osteoarthritis, right hip (principal)
CPT/HCPCS: 73502

== ENCOUNTER 2024-12-03 13:02 | Emergency (ER) | payer MEDICARE, SELFPAY ==
[2024-12-03 13:09] VITALS: BP 172/76; PULSE 50; RESP 18; TEMP 36.6; O2SAT 92
--- NOTE | 2024-12-03 13:15 | DI.RAD_ITS ---
Exam(s) XR FOOT RT COMPLETE EXAM: XR FOOT RT COMPLETE CLINICAL HISTORY: trauma/pain. TECHNIQUE: 2D digital imaging was performed. Three views. COMPARISON: No exams were available for comparison FINDINGS: BONES: No acute fracture is present. No bony destructive lesion is seen. Plantar calcaneal spur. JOINTS: No dislocation present. SOFT TISSUE: Normal. IMPRESSION: No acute abnormality. DATA REPOSITORY: RADIATION DOSE DELIVERED:
--- NOTE | 2024-12-03 14:33 | W.ED.GENAD ---
Discharge Plan Disposition Patient Disposition: Home Condition: Stable Discharge Details Clinical Impression: Contusion of foot, right Primary Care Provider: Holley Faith ED Provider: Ambrocio Merino Home Meds and New Rx's Prescriptions: Continued cholecalciferol (vitamin D3) 10 mcg (400 unit) capsule 10 mcg PO DAILY liver plex 1 cap PO DAILY metoprolol succinate 25 mg tablet extended release 24 hr 25 mg PO DAILY Qty: 90 3RF Eliquis 5 mg tablet 5 mg PO BID Qty: 180 3RF potassium chloride 8 mEq tablet extended release 8 meq PO DAILY omeprazole 20 mg capsule,delayed release(DR/EC) 20 mg PO DAILY valacyclovir [Valtrex] 1 gram tablet 1,000 mg PO DAILY PRN calcium carbonate [Calcium 500] 500 mg calcium (1,250 mg) tablet 1,500 mg PO BID folic acid 400 mcg tablet 0.4 mg PO DAILY albuterol sulfate 90 mcg/actuation HFA aerosol inhaler 2 puff inhalation Q6H PRN bupropion HCl 150 mg tablet extended release 24 hr 150 mg PO QAM Dupixent Pen 300 mg/2 mL pen injector 300 mg subcut Q2W mometasone [Nasonex 24hr Allergy] 50 mcg/actuation spray,non-aerosol 2 spray intranasal DAILY Rx Instructions: administer into each nostril magnesium aspart,citrate,oxide 400 mg magnesium capsule 400 mg PO DAILY epinephrine 0.3 MG/SYR auto-injector 0.3 mg IJ PRN PRN (Reason: Anaphylaxis) Qty: 1 0RF vitamin E 100 unit Tablet 100 unit PO DAILY oxybutynin chloride 10 mg tablet extended release 24hr 10 mg PO DAILY Patient Comments: TAKE ONE TABLET BY MOUTH EVERY DAY Discharge Instructions Additional Instructions: Your x-ray did not show any broken bones. You can continue to ice the foot and also try and keep it elevated when you are sitting or laying down. If not improving within a week follow-up with your primary care provider. If you feel significantly more ill or have severe worsening pain return to the emergency department for reevaluation HPI General Mode of arrival: ambulatory. Date/Time Provider Initiated Documentation: 12/03/24 14:27. Limitations to Documentation: no limitations. Information obtained by: patient. History of Present Illness 69 year old F presents to the emergency department with the chief complaint of Right foot pain, described as moderate, Quality is described as aching, and is localized to the right and lower extremity. Patient reports no radiation. Patient started experiencing this day(s) (1) and it has been constant. No relieving factors improve symptom(s), No exacerbating factors reported . Patient notes no other symptoms.. Patient did receive the following treatments prior to arrival, none Related Data Home Medications ?Medication ?Instructions ?Recorded ?Confirmed epinephrine 0.3 mg/0.3 mL 0.3 mg (0.3 mL) IJ PRN PRN 09/28/16 12/03/24 injection, auto-injector Anaphylaxis ##1 omeprazole 20 mg capsule,delayed 20 mg PO DAILY 01/07/20 12/03/24 release cholecalciferol (vitamin D3) 10 10 mcg PO DAILY 01/08/20 12/03/24 mcg (400 unit) capsule liver plex 1 cap PO DAILY 01/08/20 12/03/24 valacyclovir 1 gram tablet 1,000 mg PO DAILY PRN 08/04/20 12/03/24 (Valtrex) potassium chloride 8 mEq 8 meq PO DAILY 01/05/21 12/03/24 tablet,extended release vitamin E 100 unit tablet 100 unit PO DAILY 05/11/21 12/03/24 albuterol sulfate 90 mcg/actuation 2 puff inhalation Q6H PRN 11/28/23 12/03/24 aerosol inhaler bupropion HCl 150 mg 24 hr tablet, 150 mg PO QAM 11/28/23 12/03/24 extended release calcium carbonate (Calcium 500) 1,500 mg PO BID 11/28/23 12/03/24 dupilumab 300 mg/2 mL subcutaneous 300 mg subcut Q2W 11/28/23 12/03/24 pen injector (Dupixent) folic acid 400 mcg tablet 0.4 mg PO DAILY 11/28/23 12/03/24 mometasone 50 mcg/actuation nasal 2 spray intranasal DAILY 11/28/23 12/03/24 spray (Nasonex 24hr Allergy) oxybutynin chloride 10 mg 10 mg PO DAILY 06/18/24 12/03/24 tablet,extended release 24 hr magnesium aspart,citrate,oxide 400 mg PO DAILY 07/03/24 12/03/24 apixaban 5 mg tablet (Eliquis) 5 mg PO BID #180 tabs 07/10/24 12/03/24 metoprolol succinate 25 mg 25 mg PO DAILY #90 tabs 07/10/24 12/03/24 tablet,extended release 24 hr Previous Rx's ?Medication ?Instructions ?Recorded epinephrine 0.3 mg/0.3 mL 0.3 mg (0.3 mL) IJ PRN PRN 09/28/16 injection, auto-injector Anaphylaxis ##1 apixaban 5 mg tablet (Eliquis) 5 mg PO BID #180 tabs 07/10/24 metoprolol succinate 25 mg 25 mg PO DAILY #90 tabs 07/10/24 tablet,extended release 24 hr Allergies Allergy/AdvReac Type Severity Reaction Status Date / Time No Known Allergies Allergy Verified 12/03/24 13:12 General Stated Complaint: Orthopedic FITZ: 4 Review of Systems All systems reviewed & are unremarkable except as noted in HPI and below Constitutional Constitutional: Denies chills, Denies fever(s) and Denies weakness Respiratory Respiratory: Denies cough Musculoskeletal Musculoskeletal: Reports other (right foot pain) Neurologic Neurologic: Denies weakness Exam Const General: no acute distress Orientation: alert HENWY Head: normal to inspection Ears: external ears normal General nose exam: external nose normal Mouth: moist mucous membranes Eyes General: appearance normal, both eyes and all related structures Neck Neck: normal visual inspection Resp Effort & Inspection: normal respiratory effort and able to speak in complete sentences Cardio Rate: regular rate Skin General skin exam: no rashes or lesions noted Neuro General: patient alert and patient oriented x3 Extrem General: full ROM, capillary refill normal, calf tenderness and no pedal edema Psych Mental Status: mental status grossly normal Course Vital Signs Vital signs: Vital Signs Temperature 36.6 C 12/03/24 13:09 Pulse 50 L 12/03/24 13:09 Respiratory Rate 18 12/03/24 13:09 Blood Pressure 172/76 H 12/03/24 13:09 Pulse Oximetry 92 12/03/24 13:09 Temperature 36.6 C 12/03/24 13:09 Temperature Source Oral 12/03/24 13:09 Pulse 50 L 12/03/24 13:09 Respiratory Rate 18 12/03/24 13:09 Blood Pressure 172/76 H 12/03/24 13:09 Pulse Oximetry 92 12/03/24 13:09 Oxygen Delivery Method Room Air 12/03/24 13:09 Oxygen Flow Rate 0 12/03/24 13:09 Pain Level 6 12/03/24 13:09 Medical Decision Making 69-year-old female comes in with 1 day of right foot pain. She says yesterday she dropped a glass bottle vinegar on her right midfoot. She did not have significant pain initially but it slowly worsened throughout the day continued today so came here for evaluation. She denies any systemic symptoms. She had x-rays taken prior to my exam which shows no acute fractures or other acute findings. She has pain over the medial right midfoot with some very mild swelling and bruising. She has intact sensation and pulses. No pain or tenderness in the ankle, full range of motion of all her toes. Suspect contusion, advised ice and keeping it elevated and if not improving within a week to follow-up with her PCP. Return precautions given Differential Diagnosis Differential Diagnosis: Fracture, contusion PFSH All Active Problems (Updated 12/03/24 @ 14:34 by Ambrocio Merino MD) Contusion of foot, right (Acute) MARISELA (obstructive sleep apnea) (Chronic) Prediabetes (Acute) Depression (Chronic) New onset atrial fibrillation (Acute) Nasal polyp (Acute) Kidney stone on left side (Chronic) Lipoma of back (Chronic) Hyperplastic colon polyp (Acute ~11/2023) Tubular adenoma of colon (Acute ~11/2023) Positive fecal immunochemical test (Acute) Cubital tunnel syndrome on left (Acute) Closed fracture of left proximal humerus (Acute 08/03/20) Diverticulosis (Acute) Right rotator cuff tendonitis (Acute) Injected 09/20/2018 Medical History Thrombocytosis Pt. denies this Fatty liver Rosacea Osteoporosis Hyperparathyroidism Resolved after parathyroidectomy Chronic insomnia Genital herpes Chronic back pain Obese Asthma Surgical History History of colonoscopy (~11/2023) Colon polyp Inflammatory polyp 01/2020, repeat 10 years Hx of cholecystectomy Hx of parathyroidectomy 2016 Social History Smoking/Tobacco Use Status: Never Smoking risk assessment performed?: Yes Alcohol Intake: current Alcohol Intake frequency: a few times a month Alcohol type: beer and wine Substance use type: does not use Housing: house Current gender identity: female Do you feel safe at home: Yes Do you feel safe in your relationship?: Yes
== END 2024-12-03 14:38 | disposition home or self-care (01) ==
PROVIDERS: Emergency Provider Emergency Medicine; PCP Nurse Practitioner Family
DX: S90.31XA Contusion of right foot, initial encounter (principal); W20.8XXA Other cause of strike by thrown, projected or falling object, initial encounter
CPT/HCPCS: 99283 ×2; 73630

== ENCOUNTER → 2024-12-04 12:50 | Outpatient (BNVA) | payer MEDICARE, SELFPAY | PROVIDERS: PCP Nurse Practitioner Family; Referring Provider Nurse Practitioner Family; Visit Provider Physician Assistant | DX: M70.61 Trochanteric bursitis, right hip (principal); M25.551 Pain in right hip | CPT/HCPCS: 20610; J1010 ==

== ENCOUNTER → 2025-01-15 13:39 | Outpatient (BNVA) | payer MEDICARE, SELFPAY | PROVIDERS: PCP Nurse Practitioner Family; Referring Provider Nurse Practitioner Family; Visit Provider Internal Medicine Cardiovascular Disease | DX: I48.0 Paroxysmal atrial fibrillation (principal); Z79.01 Long term (current) use of anticoagulants | CPT/HCPCS: 99213 ==

== ENCOUNTER 2025-01-29 14:57 | Outpatient (CLI) | payer MEDICARE, SELFPAY ==
--- NOTE | 2025-01-29 14:22 | DI.RAD_ITS ---
Exam(s) XR KNEE RT 4V AP,LAT,MANDY,PAT EXAM: XR KNEE RT 4V AP,LAT,MANDY,PAT CLINICAL HISTORY: misa to. TECHNIQUE: 2D digital imaging was performed. Three views. COMPARISON: No exams were available for comparison FINDINGS: BONES: No acute fracture is present. No bony destructive lesion is seen. JOINTS: T the joint spaces are maintained. There is mild lateral patellar tilt and patellar subluxation. Mild spurring at the articular aspect of the patella. No joint effusion is seen. SOFT TISSUE: Normal. IMPRESSION: Mild lateral patellar tilt and mild lateral patellar subluxation. DATA REPOSITORY: RADIATION DOSE DELIVERED:
== END 2025-01-29 14:58 | disposition home or self-care (01) ==
LOC: DIORS 14:58
PROVIDERS: PCP Nurse Practitioner Family; Referring Provider Nurse Practitioner Family; Visit Provider Student in an Organized Health Care Education/Training Program
DX: M70.61 Trochanteric bursitis, right hip (principal); M16.11 Unilateral primary osteoarthritis, right hip; M25.561 Pain in right knee
CPT/HCPCS: 99213; 73564

== ENCOUNTER → 2025-04-06 14:07 | Outpatient (BNVA) | payer MEDICARE, SELFPAY | PROVIDERS: PCP Nurse Practitioner Family; Referring Provider Nurse Practitioner Family; Visit Provider Physician Assistant | DX: M70.61 Trochanteric bursitis, right hip (principal); M16.11 Unilateral primary osteoarthritis, right hip | CPT/HCPCS: 99213 ==

== ENCOUNTER 2025-04-20 13:06 | Outpatient (REF) | payer MEDICARE, SELFPAY ==
[2025-04-20 15:38] LABS: Abs Immature Grans 0.02 10^3/uL (0.0-0.06); HCT 45.7 % (36.0-46.0); HGB 15.1 g/dL (11.2-15.7); Immature Grans % 0.3 %; MCH 30.2 pg (27.0-33.0); MCHC 33.0 % (32.0-36.0); MCV 91 fL (80-95); MPV 10.2 fL (8.0-11.0); Platelet Count 306 10^3/uL (130-400); RBC 5.00 10^6/uL (3.93-5.22); RDW 13.0 % (11.7-14.6); RDW-SD 43.9 fL; WBC 7.43 10^3/uL (4.4-10.8)
[2025-04-20 15:55] LABS: ALT 25 U/L (10-49); AST 23 U/L (<34); Albumin 4.2 g/dL (3.4-5.0); Alkaline Phosphatase 80 U/L (46-116); Anion Gap 10.9 mmol/L (3-11); BUN 16 mg/dL (9-23); Bilirubin, Total 0.60 mg/dL (0.2-1.2); CO2 25.1 mmol/L (20.0-31.0); Calcium 9.5 mg/dL (8.3-10.6); Chloride 106 mmol/L (98-107); Glucose 97 mg/dL (74-106); Potassium 4.4 mmol/L (3.5-5.1); Sodium 142 mmol/L (136-145); Total Protein 6.7 g/dL (5.7-8.2)
== END 2025-04-20 13:07 | disposition home or self-care (01) ==
LOC: NCHCN 13:06
PROVIDERS: PCP Nurse Practitioner Family; Visit Provider Nurse Practitioner Family
DX: K76.0 Fatty (change of) liver, not elsewhere classified (principal); R79.89 Other specified abnormal findings of blood chemistry; K83.09 Other cholangitis; K74.60 Unspecified cirrhosis of liver
CPT/HCPCS: 80053; 82105; 85025

== ENCOUNTER → 2025-05-13 00:07 | Outpatient (CLI) | payer MEDICARE, SELFPAY ==
--- NOTE | 2025-05-13 | DI.MAMMO_ITS ---
Exam(s) MAMMO SCREENING EXAM: MAMMO SCREENING CLINICAL HISTORY: SCREENING MAMMO Z12.31 TECHNIQUE: Mammograms were interpreted according to the usual protocol including computer analysis with CAD system, tomosynthesis and C-view imaging. COMPARISON: 2015 through 2022 FINDINGS: The breasts are composed of scattered fibroglandular densities, Breast Density category B. No suspicious masses or suspicious microcalcifications are seen. Mild left breast scarring. Calcifications consistent with fat necrosis. Left-sided biopsy marker. No skin thickening or abnormal axillary lymph nodes are seen. There has been no significant change from prior exams. IMPRESSION: BI-RADS Category 2 - Benign Findings Yearly screening mammography is recommended. Breast Density - Category B - There are scattered areas of fibroglandular density. Breast density Category C or D implies that the patient has dense breast tissue. Dense breast tissue can make it harder to find cancer on a mammogram. Dense breast tissue is also associated with an increased risk of breast cancer. This information about the result of the mammogram report was provided to the patient to raise their awareness. Use this report when you speak with the patient about their risks for breast cancer, which includes their family history. At that time, you may recommend additional screening tests (Ultrasound or MRI) as these tests may add significant information. A negative radiographic report should not delay biopsy if a dominant or clinically suspicious mass is present. Up to ten percent of cancers are not identified on mammography. A negative report may reinforce clinical impression. Adenosis and dense breasts may obscure an underlying neoplasm. False positive reports average 6 to 10%. Patient will receive a letter notifying them of these results.
== END ==
LOC: DI 00:07
PROVIDERS: PCP Nurse Practitioner Family; Visit Provider Nurse Practitioner Family
DX: Z12.31 Encounter for screening mammogram for malignant neoplasm of breast (principal); R92.323 Mammographic fibroglandular density, bilateral breasts
CPT/HCPCS: 77063; 77067